=== PATIENT | female | born 1965 | race Caucasian/White ===

== ENCOUNTER → 2016-10-24 | Outpatient (CLI) | payer MEDICAID, MEDICARE | LOC: WI 15:03 | PROVIDERS: ATTEND Family Medicine | DX: Z12.31 Encounter for screening mammogram for malignant neoplasm of breast (principal) | CPT/HCPCS: 77067; G0202 ==

== ENCOUNTER → 2016-10-25 | Outpatient (CLI) | payer MEDICARE ==
[2016-10-25 13:23] LABS: APPEARANCE,URINE CLEAR; BILIRUBIN,URINE NEGATIVE (NEGATIVE); GLUCOSE, URINE NEGATIVE (NEGATIVE); KETONES,URINE NEGATIVE (NEGATIVE); LEUKOCYTE ESTERASE,URINE NEGATIVE (NEGATIVE); NITRITE,URINE NEGATIVE (NEGATIVE); PROTEIN,URINE >=500 mg/dL (NEGATIVE); UROBILINOGEN,URINE NEGATIVE mg/dL (<2.0)
[2016-10-25 13:26] LABS: HEMATOCRIT 43.5 % (36.0-47.0); HEMOGLOBIN 13.2 g/dL (12.0-15.5); HGB HCT DIFFERENCE -3.9; MEAN CORPUSCULAR HEMOGLOBIN 20.1 pg (27.0-33.4); MEAN CORPUSCULAR HGB CONC 30.2 g/dL (32.0-36.0); MEAN CORPUSCULAR VOLUME 67 fl (80-97); RED BLOOD COUNT 6.53 10^6/uL (3.72-5.28); RED CELL DISTRIBUTION WIDTH 21.1 % (11.5-14.0); WHITE BLOOD COUNT 10.5 10^3/uL (4.0-10.5)
[2016-10-25 13:44] LABS: ANION GAP 11 (5-19); BLOOD UREA NITROGEN 16 mg/dL (7-20); CALCIUM 9.9 mg/dL (8.4-10.2); CARBON DIOXIDE 31 mmol/L (22-30); CHLORIDE 100 mmol/L (98-107); GLUCOSE 159 mg/dL (75-110); POTASSIUM 4.4 mmol/L (3.6-5.0); SODIUM 142.4 mmol/L (137-145)
[2016-10-26 12:38] LABS: CREATININE URINE 53.6 mg/dL (Not Estab.)
== END ==
LOC: OD 12:51
PROVIDERS: ATTEND Internal Medicine Nephrology
DX: R80.9 Proteinuria, unspecified (principal); E11.9 Type 2 diabetes mellitus without complications; I10 Essential (primary) hypertension
CPT/HCPCS: 80048; 81001; 82570; 84156; 85027

== ENCOUNTER → 2016-11-06 | Outpatient (CLI) | payer MEDICAID, MEDICARE | LOC: WI 12:14 | PROVIDERS: ATTEND Family Medicine | DX: N63 Unspecified lump in breast (principal) | CPT/HCPCS: 76642; G0204 ==

== ENCOUNTER → 2017-04-22 | Outpatient (CLI) | payer MEDICARE ==
[2017-04-22 14:57] LABS: HEMATOCRIT 41.5 % (36.0-47.0); HEMOGLOBIN 13.8 g/dL (12.0-15.5); HGB HCT DIFFERENCE -0.1; MEAN CORPUSCULAR HEMOGLOBIN 24.7 pg (27.0-33.4); MEAN CORPUSCULAR HGB CONC 33.3 g/dL (32.0-36.0); MEAN CORPUSCULAR VOLUME 74 fl (80-97); RED BLOOD COUNT 5.61 10^6/uL (3.72-5.28); WHITE BLOOD COUNT 10.2 10^3/uL (4.0-10.5)
[2017-04-22 15:13] LABS: APPEARANCE,URINE SLIGHTLY-CLOUDY; BILIRUBIN,URINE NEGATIVE (NEGATIVE); GLUCOSE, URINE NEGATIVE (NEGATIVE); KETONES,URINE NEGATIVE (NEGATIVE); LEUKOCYTE ESTERASE,URINE NEGATIVE (NEGATIVE); NITRITE,URINE NEGATIVE (NEGATIVE); PROTEIN,URINE 100 mg/dL (NEGATIVE); URINE SPECIFIC GRAVITY 1.016; UROBILINOGEN,URINE NEGATIVE mg/dL (<2.0)
[2017-04-22 15:19] LABS: ANION GAP 12 (5-19); BLOOD UREA NITROGEN 18 mg/dL (7-20); CALCIUM 9.7 mg/dL (8.4-10.2); CARBON DIOXIDE 30 mmol/L (22-30); CHLORIDE 100 mmol/L (98-107); CREATININE RESULT 0.69 mg/dL (0.52-1.25); GLUCOSE 128 mg/dL (75-110); POTASSIUM 4.3 mmol/L (3.6-5.0); SODIUM 141.5 mmol/L (137-145)
[2017-04-22 15:41] LABS: URINE CREATININE 76.3 mg/dL (15-278); URINE PROTEIN 195.1 mg/dL (<12)
== END ==
LOC: OD 13:21
PROVIDERS: ATTEND Internal Medicine Nephrology
DX: R80.9 Proteinuria, unspecified (principal); I12.9 Hypertensive chronic kidney disease with stage 1 through stage 4 chronic kidney disease, or unspecified chronic kidney disease; E11.9 Type 2 diabetes mellitus without complications
CPT/HCPCS: 36415; 80048; 81001; 82570; 84156; 85027

== ENCOUNTER 2017-04-30 16:52 | Inpatient (IN) | payer MEDICARE, MEDICAID ==
[2017-04-30 17:20] LABS: VENOUS BLOOD BASE EXCESS 4.6 mmol/L; VENOUS BLOOD HCO3 31.2 mmol/L (20-32); VENOUS BLOOD PCO2 54.3 mmHg (35-63); VENOUS BLOOD PH 7.38 (7.30-7.42)
[2017-04-30 17:22] LABS: ABSOLUTE BASOPHILS # (AUTO) 0.1 10^3/uL (0.0-0.2); ABSOLUTE EOSINOPHILS # (AUTO) 0.1 10^3/uL (0.0-0.6); ABSOLUTE LYMPHOCYTES (AUTO) 2.3 10^3/uL (0.5-4.7); ABSOLUTE MONOCYTES (AUTO) 0.9 10^3/uL (0.1-1.4); ABSOLUTE NEUT (AUTO) 7.9 10^3/uL (1.7-8.2); BASOPHILS % (AUTO) 0.7 % (0-2); EOSINOPHILS % (AUTO) 0.7 % (0-6); HEMATOCRIT 41.2 % (36.0-47.0); HEMOGLOBIN 13.1 g/dL (12.0-15.5); HGB HCT DIFFERENCE -1.9; LYMPHOCYTES % (AUTO) 20.1 % (13-45); MEAN CORPUSCULAR HEMOGLOBIN 23.9 pg (27.0-33.4); MEAN CORPUSCULAR HGB CONC 31.8 g/dL (32.0-36.0); MEAN CORPUSCULAR VOLUME 75 fl (80-97); MONOCYTES % (AUTO) 8.2 % (3-13); RED BLOOD COUNT 5.49 10^6/uL (3.72-5.28); RED CELL DISTRIBUTION WIDTH 18.7 % (11.5-14.0); SEGMENTED NEUTROPHILS % (AUTO) 70.3 % (42-78); WHITE BLOOD COUNT 11.3 10^3/uL (4.0-10.5)
[2017-04-30] MEDS ORDERED: IPRATROPIUM/ALBUTEROL 0.5-2.5 MG/3 ML AMPUL NEB ONE (17:31)
--- NOTE | 2017-04-30 17:33 | ER Document Report ---
ED General - General Chief Complaint: Shortness Of Breath Stated Complaint: DIFFICULTY BREATHING Time Seen by Provider: 04/30/17 17:30 Mode of Arrival: Medic Information source: Patient Notes: This is a 52-year-old female with a history of B-cell lymphoma, pulmonary fibrosis, COPD (oxygen dependent), who is brought in by EMS because of severe shortness of breath. Patient states she has not been feeling that well lately and has had increasing shortness of breath. The patient was seen in the pulmonary clinic (Dr. Ruiz) and EMS was called and brought the patient to the ER. Her oxygen saturations were in the low 80s. TRAVEL OUTSIDE OF THE [place] IN LAST 30 DAYS: No - HPI Onset: Just prior to arrival Onset/Duration: Gradual Quality of pain: No pain Severity: None Pain Level: Denies Associated symptoms: Shortness of breath. denies: Chest pain, Fever Exacerbated by: Movement Relieved by: Remaining still Similar symptoms previously: Yes Recently seen / treated by doctor: Yes - Related Data Allergies/Adverse Reactions: corn [[place]] Allergy (Severe, Verified 06/20/16 21:35) COLITIS Shellfish * [Shellfish] Allergy (Severe, Verified 06/21/16 07:47) COLITIS peanut Adverse Reaction (Verified 06/21/16 07:47) SEEDS Allergy (Intermediate, Uncoded 12/20/14 14:34) COLITIS LETTUCE Adverse Reaction (Severe, Uncoded 12/20/14 14:34) COLITIS Past Medical History - General Information source: Patient - Social History Smoking Status: Never Smoker Cigarette use (# per day): No Chew tobacco use (# tins/day): No Frequency of alcohol use: None Drug Abuse: None Lives with: Family Family History: None, Reviewed & Not Pertinent Patient has suicidal ideation: No Patient has homicidal ideation: No - Past Medical History Cardiac Medical History: Reports: Hx Hypercholesterolemia, Hx Hypertension Denies: Hx Coronary Artery Disease, Hx Heart Attack Pulmonary Medical History: Reports: Hx Asthma, Hx Bronchitis, Hx COPD - Hospitalized 06/15 w/persistent pulmonary failure, Hx Pneumonia - ARDS, Hx Intubation - 2 in the past adamantly refuses additional intubations, Hx Respiratory Failure, Hx Sleep Apnea Denies: Hx Tuberculosis Neurological Medical History: Reports: Hx Cerebrovascular Accident - "Mild" 02/19 Endocrine Medical History: Reports: Hx Diabetes Mellitus Type 1, Hx Diabetes Mellitus Type 2 GI Medical History: Reports: Hx Gastroesophageal Reflux Disease, Hx Hiatal Hernia Musculoskeltal Medical History: Reports Hx Arthritis - Gout Past Surgical History: Reports: Hx Appendectomy, Hx Bowel Surgery, Hx Colostomy - ileostomy placed 05/15; subsequently closed., Hx Tubal Ligation. Denies: Hx Pacemaker - Immunizations Hx Diphtheria, Pertussis, Tetanus Vaccination: No Hx Pneumococcal Vaccination: 06/22/11 Review of Systems - Review of Systems Constitutional: denies: Chills, Fever EENT: No symptoms reported Cardiovascular: No symptoms reported Respiratory: See HPI Gastrointestinal: No symptoms reported Genitourinary: No symptoms reported Female Genitourinary: No symptoms reported Musculoskeletal: No symptoms reported Skin: No symptoms reported Hematologic/Lymphatic: No symptoms reported Neurological/Psychological: No symptoms reported Physical Exam - Vital signs Vitals: Pulse Ox 88 L 04/30/17 17:10 Notes: Physical exam: GENERAL: 52-year-old female, alert and oriented 3, significant respiratory distress HEAD: Atraumatic, normocephalic. EYES: Pupils equal round and reactive to light, extraocular movements intact, sclera anicteric, conjunctiva are normal. ENT: TMs normal, nares patent, oropharynx clear without exudates. Moist mucous membranes. NECK: Normal range of motion, supple without obvious mass or JVD. LUNGS: Wheezing bilaterally HEART: Regular rate and rhythm without murmurs, rubs or gallops. ABDOMEN: Soft, normoactive bowel sounds. No tenderness to palpation. No guarding, no rebound. No masses appreciated. EXTREMITIES: Normal range of motion, no pitting or edema. No clubbing or cyanosis. NEUROLOGICAL: Cranial nerves II through XII grossly intact. Normal speech, moving all extremities. PSYCH: Normal mood, normal affect. SKIN: Warm, Dry, normal turgor, no rashes or lesions noted. Course - Vital Signs Vital signs: Temp Pulse Resp BP Pulse Ox 24 H 146/76 H 97 04/30/17 20:42 04/30/17 20:00 04/30/17 20:42 - Laboratory Result Diagrams: 04/30/17 17:10 04/30/17 17:10 Laboratory results interpreted by me: 04/30/17 04/30/17 04/30/17 17:10 17:10 19:56 WBC 11.3 H RBC 5.49 H MCV 75 L MCH 23.9 L MCHC 31.8 L RDW 18.7 H Glucose 119 H Alkaline Phosphatase 139 H Total Protein 6.1 L Albumin 3.2 L Urine Protein >=500 H Ur Leukocyte Esterase TRACE H - Diagnostic Test Radiology reviewed: Image reviewed, Reports reviewed - EKG Interpretation by Me Rate: Tachycardia Rhythm: NSR - EKG shows sinus tachycardia with a ventricular rate of 102, no acute ST-T wave changes Discharge - Discharge Bad tableCondition: Stable Disposition: ADMITTED OBSERVATION Admitting Provider: Hospitalist Unit Admitted: Telemetry - Dr. Mock
[2017-04-30 17:40] LABS: ALANINE AMINOTRANSFERASE 33 U/L (9-52); ALBUMIN 3.2 g/dL (3.5-5.0); ALKALINE PHOSPHATASE 139 U/L (38-126); ANION GAP 8 (5-19); ASPARTATE AMINO TRANSFERASE 20 U/L (14-36); BILIRUBIN,DIRECT 0.4 mg/dL (0.0-0.4); BILIRUBIN,TOTAL 1.2 mg/dL (0.2-1.3); BLOOD UREA NITROGEN 14 mg/dL (7-20); CALCIUM 8.4 mg/dL (8.4-10.2); CARBON DIOXIDE 30 mmol/L (22-30); CHLORIDE 104 mmol/L (98-107); CREATININE RESULT 0.63 mg/dL (0.52-1.25); GLUCOSE 119 mg/dL (75-110); POTASSIUM 3.7 mmol/L (3.6-5.0); SODIUM 142.3 mmol/L (137-145); TOTAL PROTEIN 6.1 g/dL (6.3-8.2)
--- NOTE | 2017-04-30 18:02 | RADIOLOGY REPORT (SQ) ---
EXAM DESCRIPTION: CHEST SINGLE VIEW COMPLETED DATE/TIME: 04/30/2017 5:51 pm REASON FOR STUDY: shortness of breath COMPARISON: 06/20/2016 EXAM PARAMETERS: NUMBER OF VIEWS: One view. TECHNIQUE: Single frontal radiographic view of the chest acquired. RADIATION DOSE: NA LIMITATIONS: None. FINDINGS: LUNGS AND PLEURA: Stable degree of chronic interstitial lung disease. No consolidation, m asses or pneumothorax. No pleural effusion. MEDIASTINUM AND HILAR STRUCTURES: Stable in size and contour. HEART AND VASCULAR STRUCTURES: Heart stable in size. Normal vasculature. BONES: No acute findings. HARDWARE: None in the chest. OTHER: No other significant finding. IMPRESSION: NO ACUTE RADIOGRAPHIC FINDING IN THE CHEST. NO SIGNIFICANT CHANGE FROM PRIOR STUDY. TECHNICAL DOCUMENTATION: JOB ID: [id number]
[2017-04-30 20:19] LABS: APPEARANCE,URINE CLEAR; BILIRUBIN,URINE NEGATIVE (NEGATIVE); GLUCOSE, URINE NEGATIVE (NEGATIVE); KETONES,URINE NEGATIVE (NEGATIVE); LEUKOCYTE ESTERASE,URINE TRACE (NEGATIVE); NITRITE,URINE NEGATIVE (NEGATIVE); PROTEIN,URINE >=500 mg/dL (NEGATIVE); UROBILINOGEN,URINE NEGATIVE mg/dL (<2.0)
--- NOTE | 2017-04-30 21:15 | EKG REPORT ---
SEVERITY:- OTHERWISE NORMAL ECG - SINUS TACHYCARDIA ATRIAL PREMATURE COMPLEX : Confirmed by: Juli Ozuna MD 30-Apr-2017 21:14:47
[2017-04-30] MEDS ORDERED: ALBUTEROL SULFATE 0.083% NEB 2.5 MG/3 ML AMPUL NEB ONE (21:58)
[2017-04-30] MEDS ORDERED: HEPARIN SOD (PORCINE) 5,000 UNIT/ML 1 ML SYRINGE SUBCUT SCH (22:00)
[2017-04-30] MEDS ORDERED: HYDRALAZINE HCL INJ/PF 20 MG/1 ML SDV IV PRN (22:00)
[2017-04-30] MEDS ORDERED: LISINOPRIL 10 MG TABLET PO ONE (22:01)
[2017-04-30] MEDS ORDERED: DEXTROSE 40% GEL 15 GM TUBE PO PRN ×2 (22:01)
[2017-04-30] MEDS ORDERED: ACETAMINOPHEN 325 MG TABLET PO PRN (22:01)
[2017-04-30] MEDS ORDERED: GLUCAGON,HUMAN RECOMB 1 MG INJ IM PRN (22:01)
[2017-04-30] MEDS ORDERED: IPRATROPIUM/ALBUTEROL 0.5-2.5 MG/3 ML AMPUL NEB PRN (22:01)
[2017-04-30] MEDS ORDERED: DEXTROSE 50%-WATER 25 GM/50 ML DISP.SYRIN IV PRN ×2 (22:01)
[2017-04-30] MEDS ORDERED: GUAIFENESIN SYRP 200 MG/10 ML UDC PO PRN (22:01)
[2017-04-30] MEDS ORDERED: FAMOTIDINE 20 MG TABLET PO ONE (22:02)
[2017-04-30] MEDS ORDERED: AZITHROMYCIN INJ 500 MG VIAL IV PRN (22:49)
[2017-04-30] MEDS ORDERED: MONTELUKAST SODIUM 10 MG TABLET PO ONE (23:00)
[2017-04-30] MEDS ORDERED: AZITHROMYCIN 500 MG in DEXTROSE 5%-WATER 250 ML IV ONE (23:00)
[2017-04-30] MEDS ORDERED: HEPARIN SOD (PORCINE) 5,000 UNIT/ML 1 ML SYRINGE SUBCUT ONE (23:00)
[2017-04-30] MEDS ORDERED: ATORVASTATIN CALCIUM 10 MG TABLET PO ONE (23:00)
[2017-04-30] MEDS ORDERED: INSULIN DETEMIR 100 UNIT/ML 3 ML PEN SUBCUT ONE (23:00)
[2017-05-01] MEDS: INSULIN LISPRO 100 UNIT/ML 3 ML VIAL SUBCUT PRN ×3 (00:14→22:01)
[2017-05-01] MEDS: IPRATROPIUM/ALBUTEROL 0.5-2.5 MG/3 ML AMPUL NEB SCH ×4 (01:59→20:00)
--- NOTE | 2017-05-01 03:29 | PDOC H&P ---
History of Present Illness Admission Date/PCP: 04/30/17 22:01 Patient complains of: Shortness of breath History of Present Illness: JACOB TOLBERT is a 52 year old female with a past medical history of non- Hodgkin's lymphoma in remission, obstructive sleep apnea, COPD with oxygen dependence, chronic bronchitis, GERD, dyslipidemia, hypertension, type 2 diabetes and irritable bowel syndrome. She been her usual state of health until approximately 3 days ago noting exceptional shortness of breath without rhinorrhea, productive cough, fever, chills or uncontrolled GERD. 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 Ruiz as his office where she was cyanotic with oxygen saturations in the low 80s. EMS transferred referred her to the emergency room and had an unremarkable workup though required continuous albuterol and Atrovent nebulizer, 40% on BiPAP for oxygen saturations in the low 90s and improvement of symptoms. Patient admits noncompliance with medication secondary to exceptional social stressors she is also exposed to secondhand smoke on a daily basis. She is referred to the hospitalist for observation. Past Medical History Cardiac Medical History: Reports: Hyperlipidema, Hypertension Denies: Coronary Artery Disease, Myocardial Infarction Pulmonary Medical History: Reports: Asthma, Bronchitis, Chronic Obstructive Pulmonary Disease (COPD) - Hospitalized 06/15 w/persistent pulmonary failure, Intubation - 2 in the past adamantly refuses additional intubations, Pneumonia - ARDS, Respiratory Failure, Sleep Apnea Denies: Tuberculosis Endocrine Medical History: Reports: Diabetes Mellitus Type 1, Diabetes Mellitus Type 2 GI Medical History: Reports: Gastroesophageal Reflux Disease, Hiatal Hernia Musculoskeltal Medical History: Reports: Arthritis - Gout Psychiatric Medical History: Denies: Depression Hematology: Denies: Anemia Past Surgical History Past Surgical History: Reports: Appendectomy, Colostomy - ileostomy placed 05/15 ; subsequently closed., Tubal Ligation Denies: Pacemaker Social History Information Source: [facility] Records Lives with: Family Smoking Status: Former Smoker Frequency of Alcohol Use: None Hx Recreational Drug Use: No Drugs: None Hx Prescription Drug Abuse: No - Advance Directive Resuscitation Status: Full Code Family History Family History: COPD Parental Family History Reviewed: Yes Children Family History Reviewed: Yes Sibling(s) Family History Reviewed.: Yes Medication/Allergy Home Medications: Pravastatin Sodium [Pravachol] 40 mg PO QHS 06/04/11 Fluticasone/Salmeterol [Advair 500-50 Diskus 28 Dose] 1 inh IH DAILY 03/17/14 Montelukast Sodium [Singulair 10 mg Tablet] 10 mg PO QHS 03/17/14 Liraglutide [Victoza 2-Ambrosio] 1.2 mg SUBCUT DAILY 12/20/14 Lisinopril/Hydrochlorothiazide [Lisinopril-Hctz 10-12.5 mg Tab] 1 each PO DAILY 12/20/14 Dicyclomine HCl 10 mg PO QID 06/20/15 Insulin Detemir [Levemir Insulin 100 units/mL] 10 unit SUBCUT QHS 06/20/15 Metformin HCl [Glucophage] 1,000 mg PO BID 06/20/15 Albuterol Sulfate [Proair Respiclick] 2 pfu IH Q4H 06/21/16 Albuterol Sulfate [Ventolin Hfa] 1 - 2 puff IH Q6H PRN 06/21/16 Cholestyramine (with Sugar) [Cholestyramine Packet] 4 g PO DAILY 06/21/16 Fluticasone Propionate 1 spray IN DAILY 06/21/16 Omeprazole 20 mg PO BID 06/21/16 Tiotropium [place] [Spiriva Handihaler 5 Cap/Kit (18 Mcg/Cap)] 1 cap IH DAILY Albuterol Sulfate [Ventolin 0.083% Neb 2.5 mg/3 mL Ampul] 2.5 mg NEB RTQ2HP PRN #60 vial.neb 06/25/16 Levofloxacin [Levaquin 750 mg Tablet] 750 mg PO DAILY #10 tab 06/25/16 Nebulizer [Nebulizer Machine] 1 each MC ASDIR PRN #1 kit 06/25/16 Prednisone [Sterapred Ds] 1 pkg PO ASDIR PRN 12 Days tab.ds.pk 06/25/16 Allergies/Adverse Reactions: corn [Ambia] Allergy (Severe, Verified 06/20/16 21:35) COLITIS Shellfish * [Shellfish] Allergy (Severe, Verified 06/21/16 07:47) COLITIS peanut Adverse Reaction (Verified 06/21/16 07:47) SEEDS Allergy (Intermediate, Uncoded 12/20/14 14:34) COLITIS LETTUCE Adverse Reaction (Severe, Uncoded 12/20/14 14:34) COLITIS Review of Systems Constitutional: ABSENT: chills, fever(s), headache(s), weight gain, weight loss Eyes: ABSENT: visual disturbances Ears: ABSENT: hearing changes Cardiovascular: ABSENT: chest pain, dyspnea on exertion, edema, orthropnea, palpitations Respiratory: ABSENT: cough, hemoptysis Gastrointestinal: ABSENT: abdominal pain, constipation, diarrhea, hematemesis, hematochezia, nausea, vomiting Genitourinary: ABSENT: dysuria, hematuria Musculoskeletal: ABSENT: joint swelling Integumentary: ABSENT: rash, wounds Neurological: ABSENT: abnormal gait, abnormal speech, confusion, dizziness, focal weakness, syncope Psychiatric: ABSENT: anxiety, depression, homidical ideation, suicidal ideation Endocrine: ABSENT: cold intolerance, heat intolerance, polydipsia, polyuria Hematologic/Lymphatic: ABSENT: easy bleeding, easy bruising Physical Exam Vital Signs: Temp Pulse Resp BP Pulse Ox 97.6 F 91 22 H 139/60 H 92 05/01/17 01:51 05/01/17 02:01 05/01/17 02:01 05/01/17 01:51 05/01/17 02:30 Intake & Output 04/29/17 04/30/17 05/01/17 11:59 11:59 11:59 Weight 108.8 kg General appearance: PRESENT: cooperative, mild distress, obese Head exam: PRESENT: atraumatic, normocephalic Eye exam: PRESENT: conjunctiva pink, EOMI, PERRLA. ABSENT: scleral icterus Ear exam: PRESENT: normal external ear exam Mouth exam: PRESENT: moist, tongue midline Neck exam: ABSENT: carotid bruit, JVD, lymphadenopathy, thyromegaly Respiratory exam: PRESENT: accessory muscle use, prolonged expiratory phas, retraction, symmetrical, tachypnea. ABSENT: rales, rhonchi, wheezes Cardiovascular exam: PRESENT: RRR. ABSENT: diastolic murmur, rubs, systolic murmur Pulses: PRESENT: normal dorsalis pedis pul Vascular exam: PRESENT: normal capillary refill GI/Abdominal exam: PRESENT: normal bowel sounds, soft. ABSENT: distended, guarding, mass, organolmegaly, rebound, tenderness Rectal exam: PRESENT: deferred Extremities exam: PRESENT: full ROM. ABSENT: calf tenderness, clubbing, pedal edema Neurological exam: PRESENT: alert, awake, oriented to person, oriented to place , oriented to time, oriented to situation, CN II-XII grossly intact. ABSENT: motor sensory deficit Psychiatric exam: PRESENT: appropriate affect, normal mood. ABSENT: homicidal ideation, suicidal ideation Skin exam: PRESENT: dry, intact, warm. ABSENT: cyanosis, rash Results Impressions: Chest X-Ray 04/30/17 17:00 IMPRESSION: NO ACUTE RADIOGRAPHIC FINDING IN THE CHEST. NO SIGNIFICANT CHANGE FROM PRIOR STUDY. Assessment & Plan - Diagnosis (1) Acute on chronic respiratory failure Qualifiers: Respiratory failure complication: hypoxia Qualified Code(s): J96.21 - Acute and chronic respiratory failure with hypoxia Is this a current diagnosis for this admission?: Yes Plan: Unclear cause for exacerbation possibly uncontrolled GERD or noncompliance of medications. Observation on a monitored bed, empiric antibiotics, albuterol and Atrovent, Flonase and prednisone. Flutter valve, BiPAP ordered follow-up CBC (2) Diabetes mellitus Is this a current diagnosis for this admission?: Yes Plan: PPI twice daily (3) GERD (gastroesophageal reflux disease) Is this a current diagnosis for this admission?: Yes (4) Pulmonary fibrosis Is this a current diagnosis for this admission?: Yes Plan: Supportive care supplemental oxygen (5) Diabetes mellitus type 1 Qualifiers: Diabetes mellitus complication status: without complication Qualified Code( s): E10.9 - Type 1 diabetes mellitus without complications Is this a current diagnosis for this admission?: Yes Plan: Anticipate poor control continue outpatient regiment with sliding scale coverage - Time Time Spent: 50 to 70 Minutes
[2017-05-01] MEDS: FLUTICASONE NASAL SPRAY 50 MCG/SPRY 120 SPRAY/16 GM NASL SCH ×2 (05:04→11:21)
[2017-05-01 05:05] LABS: ABSOLUTE LYMPHOCYTES (AUTO) 0.6 10^3/uL (0.5-4.7); ABSOLUTE MONOCYTES (AUTO) 0.3 10^3/uL (0.1-1.4); ABSOLUTE NEUT (AUTO) 8.6 10^3/uL (1.7-8.2); BASOPHILS % (AUTO) 0.2 % (0-2); HEMATOCRIT 39.6 % (36.0-47.0); HGB HCT DIFFERENCE -0.6; LYMPHOCYTES % (AUTO) 6.2 % (13-45); MEAN CORPUSCULAR HEMOGLOBIN 24.5 pg (27.0-33.4); MEAN CORPUSCULAR HGB CONC 32.7 g/dL (32.0-36.0); MEAN CORPUSCULAR VOLUME 75 fl (80-97); MONOCYTES % (AUTO) 3.3 % (3-13); RED CELL DISTRIBUTION WIDTH 18.5 % (11.5-14.0); SEGMENTED NEUTROPHILS % (AUTO) 90.3 % (42-78); WHITE BLOOD COUNT 9.6 10^3/uL (4.0-10.5)
[2017-05-01] MEDS: HEPARIN SOD (PORCINE) 5,000 UNIT/ML 1 ML SYRINGE SUBCUT SCH ×3 (05:11→22:02)
[2017-05-01 05:23] LABS: ANION GAP 12 (5-19); BLOOD UREA NITROGEN 16 mg/dL (7-20); CALCIUM 9.4 mg/dL (8.4-10.2); CARBON DIOXIDE 26 mmol/L (22-30); CHLORIDE 101 mmol/L (98-107); CREATININE RESULT 0.58 mg/dL (0.52-1.25); GLUCOSE 256 mg/dL (75-110); POTASSIUM 4.1 mmol/L (3.6-5.0); SODIUM 139.1 mmol/L (137-145)
--- NOTE | 2017-05-01 09:54 | RADIOLOGY REPORT (SQ) ---
EXAM DESCRIPTION: CTA CHEST COMPLETED DATE/TIME: 05/01/2017 9:17 am REASON FOR STUDY: sob, resp failure J18.9 PNEUMONIA, UNSPECIFIED ORGANISM COMPARISON: [address] chest exams since 02/19/2011, most recently 06/20/2016 TECHNIQUE: CT scan of the chest performed using helical scanning technique with dynamic intravenous contrast injection. Images reviewed with lung, soft tissue and bone windows. Reconstructed coronal and sagittal MPR images reviewed. Additional 3 dimensional post-processing performed to develop Maximal Intensity Projection images (LA P). All images stored on PACS. All CT scanners at this facility use dose modulation, iterative reconstruction, and/or weight based d osing when appropriate to reduce radiation dose to as low as reasonably achievable (ALARA). [facility]: Dose Right [facility]: CareDose [facility]: Dose Right [facility]: Teradose 4D [facility]: [employer] CONTRAST TYPE AND DOSE: contrast/concentration: Isovue 370.00 mg/ml; Total Contrast Delivered: 76.0 ml; Total Saline Delivered: 110.0 ml Contrast bolus optimized for the pulmonary arteries. Not diagnostic for the aorta. RENAL FUNCTION: Creatinine 0.58 RADIATION DOSE: Up-to-date CT equipment and radiation dose reduction techniques were employed. CTDIv ol: 15.5 - 22.5 mGy. DLP: 582 mGy-cm. . LIMITATIONS: None. FINDINGS: LUNGS AND PLEURA: No pleural effusions or pneumothorax. Advanced pulmonary fibrosis is present with thickened interlobular septa. There is bandlike atelectasis at both bases. Bandlike atelectasis in the lingula. No dense consolidation worrisome for pneumonia. No definite pulmonary edema or pleural effusions. Benign well-circumscribed low-density 6 mm nodule along the right minor fissure unchanged from 011, of doubtful clinical significance. AORTA AND GREAT VESSELS: No aneurysm. Contrast bolus not optimized for the aorta. HEART: No pericardial effusion. No significant coronary artery calcifications. Calcified aortic valv e. PULMONARY ARTERIES: No emboli visualized in the main pulmonary arteries or the segmental branches. HILAR AND MEDIASTINAL STRUCTURES: There are stable borderline prominent lymph nodes in the pretrachea l, subcarinal, and prevascular spaces unchanged from 2010 HARDWARE: None in the chest. UPPER ABDOMEN: No significant findings. Limited exam. THYROID AND OTHER SOFT TISSUES: No masses. No adenopathy. BONES: No acute or significant finding. 3D MIPS: Confirm above findings. OTHER: No other significant finding. IMPRESSION: Bibasilar atelectasis. Lingular atelectasis. Pulmonary fibrosis No CT angio evidence of acute pulmonary emboli. No thoracic aortic dissection. COMMENT: Quality ID # [id number]: Final reports with documentation of one or more dose reduction techniques (e.g., Automated exposure control, adjustment of the mA and/or kV according to patient size, use of iterative reconstruction technique) TECHNICAL DOCUMENTATION: JOB ID: [id number] [employer]- All Rights Reserved
[2017-05-01] MEDS ORDERED: (PENDING PHARMACY ID) (Lisinopril/Hydrochlorothiazide [Lisinopril-Hctz 10-12.5 Mg Tab] 1 E PO SCH (10:00)
[2017-05-01] MEDS: LEVOFLOXACIN 750 MG/D5W RTU 750 MG/150 ML RTUPB IV SCH (11:20)
[2017-05-01] MEDS: GUAIFENESIN 600 MG TABLET.SA PO SCH ×2 (11:20→22:03)
[2017-05-01] MEDS: LISINOPRIL 10 MG TABLET PO SCH (11:21)
[2017-05-01] MEDS: HYDROCHLOROTHIAZIDE 12.5 MG CAPSULE PO SCH (11:21)
[2017-05-01] MEDS ORDERED: CHOLESTYRAMINE 4 GM PO SCH (11:45)
[2017-05-01] MEDS ORDERED: (PENDING PHARMACY ID) (Liraglutide [Victoza 2-Pak] 1.2 MG) SUBCUT SCH ×2 (11:45→12:00)
[2017-05-01] MEDS ORDERED: [UNRECOGNIZED DRUG - OTHER] PO SCH (11:45)
--- NOTE | 2017-05-01 12:32 | PDOC PROGRESS REPORT ---
Subjective Progress Note for:: 05/01/17 Subjective:: The patient is an unfortunate 52-year-old female who follows with Dr. Ruiz as an outpatient. She was brought to the hospital by ambulance from his office she was found to be quite hypoxic. The patient has known severe pulmonary fibrosis and COPD. She is oxygen dependent at baseline on 6 L of oxygen. In the emergency room the patient was placed on BiPAP. This morning when I see her she is doing somewhat better. Chest x-ray did not reveal any evidence of pneumonia. She has had a CT angiography which revealed no evidence of pulmonary embolus. No evidence of pneumonia. She does have some bandlike atelectasis noted in the lower bases and severe pulmonary fibrosis noted. Today when I saw her she states that she feels almost back to her baseline. She states she gets quite short of breath and her oxygen levels drop when she walks but this is been going on for quite some time. She states that she is quite tired and she was up all night. She has had no fever or chills. She states her chest feels tight but she really does not have much in the way of cough. She is not bringing up any sputum. She has had no nausea, vomiting or diarrhea. No abdominal pain. No dysuria, frequency or hematuria. Physical Exam Vital Signs: Temp Pulse Resp BP Pulse Ox 97.8 F 75 16 125/59 L 92 05/01/17 11:49 05/01/17 11:49 05/01/17 11:49 05/01/17 11:49 05/01/17 11:49 Intake & Output 04/30/17 05/01/17 05/02/17 06:59 06:59 06:59 Intake Total 220 Output Total 0 Balance 220 Weight 108.8 kg General appearance: PRESENT: no acute distress, well-developed, well-nourished, other - She is receiving oxygen via nasal cannula at 5 L Head exam: PRESENT: atraumatic, normocephalic Mouth exam: PRESENT: moist, tongue midline Respiratory exam: PRESENT: decreased breath sounds, other - She is not wheezing. Her lungs sound clear but she has significantly diminished breath sounds.. ABSENT: accessory muscle use, chest wall tenderness Cardiovascular exam: PRESENT: RRR. ABSENT: diastolic murmur, rubs, systolic murmur GI/Abdominal exam: PRESENT: normal bowel sounds, soft. ABSENT: distended, guarding, mass, organolmegaly, rebound, tenderness Rectal exam: PRESENT: deferred Extremities exam: PRESENT: full ROM. ABSENT: calf tenderness, clubbing, pedal edema Neurological exam: PRESENT: alert, awake, oriented to person, oriented to place , oriented to time, oriented to situation, CN II-XII grossly intact. ABSENT: motor sensory deficit Psychiatric exam: PRESENT: appropriate affect, normal mood. ABSENT: homicidal ideation, suicidal ideation Skin exam: PRESENT: dry, intact, warm. ABSENT: cyanosis, rash Results Laboratory Results: 05/01/17 04:22 05/01/17 04:22 05/01/17 05/01/17 04:22 04:22 WBC 9.6 RBC 5.30 H Hgb 13.0 Hct 39.6 MCV 75 L MCH 24.5 L MCHC 32.7 RDW 18.5 H Plt Count 184 Seg Neutrophils % 90.3 H Lymphocytes % 6.2 L Monocytes % 3.3 Eosinophils % 0.0 Basophils % 0.2 Absolute Neutrophils 8.6 H Absolute Lymphocytes 0.6 Absolute Monocytes 0.3 Absolute Eosinophils 0.0 Absolute Basophils 0.0 Sodium 139.1 Potassium 4.1 Chloride 101 Carbon Dioxide 26 Anion Gap 12 BUN 16 Creatinine 0.58 Est GFR ( Amer) > 60 Est GFR (Non-Af Amer) > 60 Glucose 256 H Calcium 9.4 Impressions: Chest X-Ray 04/30/17 17:00 IMPRESSION: NO ACUTE RADIOGRAPHIC FINDING IN THE CHEST. NO SIGNIFICANT CHANGE FROM PRIOR STUDY. Chest/Abdomen CTA 05/01/17 00:00 IMPRESSION: Bibasilar atelectasis. Lingular atelectasis. Pulmonary fibrosis No CT angio evidence of acute pulmonary emboli. No thoracic aortic dissection. Assessment & Plan - Diagnosis (1) Acute on chronic respiratory failure with hypoxia and hypercapnia Plan: Resolved at this point. She is back to her baseline oxygen requirements. Respiratory failure is due to worsening pulmonary fibrosis. I cannot rule out an early bronchitis. There is no evidence of pneumonia on chest x-ray or CT scan. She will continue aggressive breathing treatments and therapy as outlined below. (2) Pulmonary fibrosis Plan: The patient has severe pulmonary fibrosis at baseline. We will put her on a quick steroid taper to see if this will help with inflammation. She seems to be about back to her baseline at this point. Hopefully we can get her an appointment with Dr. Ruiz for early next week when she is discharged hopefully tomorrow. (3) Bronchitis Plan: The patient does state she has not been feeling well for a couple of days and has had increased cough at home. She could be developing an early bronchitis. She is receiving IV Levaquin. This is the first full day of treatment. (4) Diabetes mellitus Plan: Continue Levemir with sliding scale insulin. (5) GERD (gastroesophageal reflux disease) Is this a current diagnosis for this admission?: Yes Plan: Continue PPI (6) History of lymphoma Plan: No evidence of recurrence at this point. (7) HANNAH (obstructive sleep apnea) Plan: She has BiPAP available as needed - Time Time Spent with patient: 25-34 minutes - Inpatient Certification Medical Necessity: Other - Inpatient hospitalization remains necessary. The patient is improving but I believe she should be monitored in the hospital for 1 more night. She has significant respiratory issues and is at high risk of decompensation.
[2017-05-01] MEDS ORDERED: CHOLESTYRAMINE/ASPARTAME 4 GM PACKET PO ONE (13:00)
[2017-05-01] MEDS ORDERED: FLUTICASONE/SALMETEROL DISKUS 500-50 MCG/DOSE IH ONE (13:00)
[2017-05-01] MEDS ORDERED: TIOTROPIUM BROMIDE DPI 5 CAP/KIT (18 MCG/CAP) IH ONE (13:00)
[2017-05-01] MEDS ORDERED: PREDNISONE 20 MG TABLET PO ONE (13:00)
[2017-05-01] MEDS ORDERED: FLUTICASONE NASAL SPRAY 50 MCG/SPRY 120 SPRAY/16 GM NASL ONE (13:00)
[2017-05-01] MEDS: METFORMIN HCL 500 MG TABLET PO SCH (18:20)
[2017-05-01] MEDS: INSULIN DETEMIR 100 UNIT/ML 3 ML PEN SUBCUT SCH (22:00)
[2017-05-01] MEDS ORDERED: AZITHROMYCIN 500 MG in DEXTROSE 5%-WATER 250 ML IV SCH (22:00)
[2017-05-01] MEDS: FLUTICASONE/SALMETEROL DISKUS 500-50 MCG/DOSE IH SCH (22:01)
[2017-05-01] MEDS: MONTELUKAST SODIUM 10 MG TABLET PO SCH (22:03)
[2017-05-01] MEDS: LANSOPRAZOLE 15 MG TAB.RAP.DR PO SCH (22:03)
[2017-05-01] MEDS: ATORVASTATIN CALCIUM 10 MG TABLET PO SCH (22:03)
[2017-05-02] MEDS: IPRATROPIUM/ALBUTEROL 0.5-2.5 MG/3 ML AMPUL NEB SCH ×4 (01:43→19:59)
[2017-05-02 04:56] LABS: ABSOLUTE MONOCYTES (AUTO) 0.7 10^3/uL (0.1-1.4); ABSOLUTE NEUT (AUTO) 8.5 10^3/uL (1.7-8.2); BASOPHILS % (AUTO) 0.5 % (0-2); HEMATOCRIT 39.4 % (36.0-47.0); HEMOGLOBIN 12.8 g/dL (12.0-15.5); LYMPHOCYTES % (AUTO) 10.1 % (13-45); MEAN CORPUSCULAR HEMOGLOBIN 24.2 pg (27.0-33.4); MEAN CORPUSCULAR HGB CONC 32.5 g/dL (32.0-36.0); MEAN CORPUSCULAR VOLUME 74 fl (80-97); MONOCYTES % (AUTO) 6.6 % (3-13); RED BLOOD COUNT 5.29 10^6/uL (3.72-5.28); RED CELL DISTRIBUTION WIDTH 18.3 % (11.5-14.0); SEGMENTED NEUTROPHILS % (AUTO) 82.8 % (42-78); WHITE BLOOD COUNT 10.3 10^3/uL (4.0-10.5)
[2017-05-02 05:14] LABS: ANION GAP 10 (5-19); BLOOD UREA NITROGEN 18 mg/dL (7-20); CALCIUM 9.7 mg/dL (8.4-10.2); CARBON DIOXIDE 28 mmol/L (22-30); CHLORIDE 101 mmol/L (98-107); GLUCOSE 294 mg/dL (75-110); MAGNESIUM 1.5 mg/dL (1.6-2.3); POTASSIUM 4.9 mmol/L (3.6-5.0); SODIUM 138.7 mmol/L (137-145)
[2017-05-02] MEDS: HEPARIN SOD (PORCINE) 5,000 UNIT/ML 1 ML SYRINGE SUBCUT SCH ×3 (06:14→21:18)
[2017-05-02] MEDS ORDERED: MAGNESIUM SULFATE/D5W 1 GM/100 ML RTUPB IV SCH (08:30)
[2017-05-02] MEDS: INSULIN LISPRO 100 UNIT/ML 3 ML VIAL SUBCUT PRN ×2 (08:34→21:18)
[2017-05-02] MEDS: METFORMIN HCL 500 MG TABLET PO SCH ×2 (08:34→17:46)
[2017-05-02] MEDS: LEVOFLOXACIN 750 MG/D5W RTU 750 MG/150 ML RTUPB IV SCH (08:34)
--- NOTE | 2017-05-02 09:55 | Physician Advisory Note ---
Physician Advisor ProgressNote .: Pursuant to the plan for [facility], I have reviewed the medical record for this patient. Physician Advisor Statement: Beautiful documentation of pt's s/s of acute resp failure in H&P. Please consider documentin. "obesity w/BMI 41" 2. Was the O2 sat in 80s at office while on usual 6L O2, or on RA? Thx! CK
[2017-05-02] MEDS: FLUTICASONE/SALMETEROL DISKUS 500-50 MCG/DOSE IH SCH ×2 (10:01→21:22)
[2017-05-02] MEDS: LISINOPRIL 10 MG TABLET PO SCH (10:01)
[2017-05-02] MEDS: GUAIFENESIN 600 MG TABLET.SA PO SCH ×2 (10:01→21:22)
[2017-05-02] MEDS: LANSOPRAZOLE 15 MG TAB.RAP.DR PO SCH ×2 (10:01→21:22)
[2017-05-02] MEDS: HYDROCHLOROTHIAZIDE 12.5 MG CAPSULE PO SCH (10:01)
[2017-05-02] MEDS: CHOLESTYRAMINE/ASPARTAME 4 GM PACKET PO SCH (10:01)
[2017-05-02] MEDS: TIOTROPIUM BROMIDE DPI 5 CAP/KIT (18 MCG/CAP) IH SCH (10:02)
[2017-05-02] MEDS: FLUTICASONE NASAL SPRAY 50 MCG/SPRY 120 SPRAY/16 GM NASL SCH (10:02)
--- NOTE | 2017-05-02 11:19 | PDOC DISCHARGE SUMMARY ---
General - Admit/Disc Date/PCP Admission Date/Primary Care Provider: 05/01/17 13:23 Primary CARE provider: Dr. Cardona Trans Router: Dr. Ruiz Discharge Date: 05/02/17 - Discharge Diagnosis (1) Acute on chronic respiratory failure with hypoxia and hypercapnia Summary: Secondary to pulmonary fibrosis and probable acute bronchitis. The patient initially was on BiPAP but was weaned back to her normal home oxygen prior to discharge. (2) Pulmonary fibrosis Summary: The patient had a CT scan of the chest which revealed no evidence of pulmonary embolism. She had no evidence of underlying pneumonia. She did have extensive pulmonary fibrosis noted. (3) Bronchitis Summary: She will complete a course of p.o. Levaquin as well as a quick prednisone taper (4) Diabetes mellitus Summary: Stable. She will resume her home regimen (5) GERD (gastroesophageal reflux disease) Is this a current diagnosis for this admission?: Yes Summary: Continue home regimen (6) History of lymphoma Summary: No evidence of recurrence (7) HANNAH (obstructive sleep apnea) Summary: Continue CPAP at home - Additional Information Resuscitation Status: Full Code Discharge Diet: Diabetic Discharge Activity: Activity As Tolerated, Balance Activity w/Rest, Slowly Increase Activity Home Medications: Pravastatin Sodium [Pravachol] 40 mg PO QHS 06/04/11 Fluticasone/Salmeterol [Advair 500-50 Diskus 28 Dose] 1 inh IH DAILY 03/17/14 Montelukast Sodium [Singulair 10 mg Tablet] 10 mg PO QHS 03/17/14 Liraglutide [Victoza 2-Ambrosio] 1.2 mg SUBCUT DAILY 12/20/14 Lisinopril/Hydrochlorothiazide [Lisinopril-Hctz 10-12.5 mg Tab] 1 each PO DAILY 12/20/14 Insulin Detemir [Levemir Insulin 100 units/mL] 30 unit SUBCUT QHS 06/20/15 Metformin HCl [Glucophage] 1,000 mg PO BID 06/20/15 Albuterol Sulfate [Proair Respiclick] 2 puff IH Q4HP PRN 06/21/16 Cholestyramine (with Sugar) [Cholestyramine Packet] 4 g PO DAILY 06/21/16 Fluticasone Propionate 1 spray NASL DAILY 06/21/16 Omeprazole 20 mg PO BID 11/17/16 Tiotropium [place] [Spiriva Handihaler 5 Cap/Kit (18 Mcg/Cap)] 1 cap IH DAILY Fluticasone/Salmeterol [Advair 500-50 Diskus 14 Dose/Diskus] 1 inh IH Q12 inhaler 05/02/17 Guaifenesin [Mucinex Sr 600 mg Tablet.sa] 1,200 mg PO Q12 tablet.sa 05/02/17 Guaifenesin [Robitussin Syrup 200 mg/10 ml Ud Cup] 200 mg PO Q4HP PRN udc 05/02 Levofloxacin [Levaquin 750 mg Tablet] 750 mg PO DAILY #5 tablet 05/02/17 Prednisone 10 mg PO DAILY #21 tablet 05/02/17 History of Present Illness History of Present Illness: JACOB TOLBERT is a 52 year old female with increased shortness of breath and hypoxia Hospital Course Hospital Course: The patient is a very pleasant but unfortunate 52-year-old female who follows with Dr. Ruiz as an outpatient. Her past medical history is significant for lymphoma which is in remission. She has known severe pulmonary fibrosis and COPD. She is oxygen dependent at baseline on 6 L of oxygen. She was brought to the emergency room by ambulance from Dr. Ruiz's office where she was found to be quite hypoxic. In the emergency room the patient was placed on BiPAP. Chest x-ray did not reveal any evidence of pneumonia. She had a CT angiography of the chest which revealed no evidence of pulmonary embolus but she was noted to have bandlike atelectasis and severe pulmonary fibrosis. There was no evidence of any underlying infiltrates. The patient was started on IV Levaquin as well as prednisone. She was weaned off BiPAP quite quickly and is back to her baseline oxygen saturations. At this point she feels like she is totally back to her normal self. She actually is requiring less oxygen at this time than she was when she was at home. She is going to follow-up with Dr. Ruiz next week. She will complete a course of p.o. Levaquin as well as p.o. prednisone. At this point maximum hospital benefits been reached. The patient will be discharged home today in stable condition. Physical Exam Vital Signs: Temp Pulse Resp BP Pulse Ox 97.4 F 75 17 145/86 H 98 05/02/17 08:05 05/02/17 08:05 05/02/17 08:05 05/02/17 08:05 05/02/17 08:05 Intake & Output 05/01/17 05/02/17 05/03/17 06:59 06:59 06:59 Intake Total 560 Balance 560 Weight 108.3 kg General appearance: PRESENT: no acute distress, morbidly obese, well-developed, well-nourished, other - She is receiving oxygen via nasal cannula Head exam: PRESENT: atraumatic, normocephalic Mouth exam: PRESENT: moist, tongue midline Respiratory exam: PRESENT: other - She is significantly diminished throughout all lung aguiar. ABSENT: accessory muscle use, chest wall tenderness Cardiovascular exam: PRESENT: RRR. ABSENT: diastolic murmur, rubs, systolic murmur GI/Abdominal exam: PRESENT: normal bowel sounds, soft. ABSENT: distended, guarding, mass, organolmegaly, rebound, tenderness Rectal exam: PRESENT: deferred Extremities exam: PRESENT: full ROM. ABSENT: calf tenderness, clubbing, pedal edema Neurological exam: PRESENT: alert, awake, oriented to person, oriented to place , oriented to time, oriented to situation, CN II-XII grossly intact. ABSENT: motor sensory deficit Psychiatric exam: PRESENT: appropriate affect, normal mood. ABSENT: homicidal ideation, suicidal ideation Skin exam: PRESENT: dry, intact, warm. ABSENT: cyanosis, rash Results Laboratory Results: 05/02/17 04:14 05/02/17 04:14 05/02/17 05/02/17 04:14 04:14 WBC 10.3 RBC 5.29 H Hgb 12.8 Hct 39.4 MCV 74 L MCH 24.2 L MCHC 32.5 RDW 18.3 H Plt Count 163 Seg Neutrophils % 82.8 H Lymphocytes % 10.1 L Monocytes % 6.6 Eosinophils % 0.0 Basophils % 0.5 Absolute Neutrophils 8.5 H Absolute Lymphocytes 1.0 Absolute Monocytes 0.7 Absolute Eosinophils 0.0 Absolute Basophils 0.0 Sodium 138.7 Potassium 4.9 Chloride 101 Carbon Dioxide 28 Anion Gap 10 BUN 18 Creatinine 0.60 Est GFR ( Amer) > 60 Est GFR (Non-Af Amer) > 60 Glucose 294 H Calcium 9.7 Magnesium 1.5 L Impressions: Chest X-Ray 04/30/17 17:00 IMPRESSION: NO ACUTE RADIOGRAPHIC FINDING IN THE CHEST. NO SIGNIFICANT CHANGE FROM PRIOR STUDY. Chest/Abdomen CTA 05/01/17 00:00 IMPRESSION: Bibasilar atelectasis. Lingular atelectasis. Pulmonary fibrosis No CT angio evidence of acute pulmonary emboli. No thoracic aortic dissection. 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 She is in stable condition on the day of discharge. Time Spent: Greater than 30 Minutes
[2017-05-02] MEDS ORDERED: METHYLPREDNISOLONE INJ 40 MG/1 ML SDV IV ONE (15:30)
[2017-05-02] MEDS: INSULIN DETEMIR 100 UNIT/ML 3 ML PEN SUBCUT SCH (21:18)
[2017-05-02] MEDS: METHYLPREDNISOLONE INJ 40 MG/1 ML SDV IV SCH (21:23)
[2017-05-02] MEDS: MONTELUKAST SODIUM 10 MG TABLET PO SCH (21:23)
[2017-05-02] MEDS: ATORVASTATIN CALCIUM 10 MG TABLET PO SCH (21:23)
[2017-05-03] MEDS: IPRATROPIUM/ALBUTEROL 0.5-2.5 MG/3 ML AMPUL NEB SCH ×4 (02:05→20:48)
[2017-05-03] MEDS: METHYLPREDNISOLONE INJ 40 MG/1 ML SDV IV SCH (05:58)
[2017-05-03] MEDS: HEPARIN SOD (PORCINE) 5,000 UNIT/ML 1 ML SYRINGE SUBCUT SCH ×3 (05:58→21:33)
[2017-05-03] MEDS: INSULIN LISPRO 100 UNIT/ML 3 ML VIAL SUBCUT PRN ×4 (10:14→21:47)
[2017-05-03] MEDS: CHOLESTYRAMINE/ASPARTAME 4 GM PACKET PO SCH (10:14)
[2017-05-03] MEDS: HYDROCHLOROTHIAZIDE 12.5 MG CAPSULE PO SCH (10:15)
[2017-05-03] MEDS: LANSOPRAZOLE 15 MG TAB.RAP.DR PO SCH ×2 (10:15→21:33)
[2017-05-03] MEDS: METFORMIN HCL 500 MG TABLET PO SCH ×2 (10:16→16:17)
[2017-05-03] MEDS: LISINOPRIL 10 MG TABLET PO SCH (10:16)
[2017-05-03] MEDS: GUAIFENESIN 600 MG TABLET.SA PO SCH ×2 (10:16→21:33)
[2017-05-03] MEDS: LEVOFLOXACIN 750 MG/D5W RTU 750 MG/150 ML RTUPB IV SCH (10:17)
[2017-05-03] MEDS: FLUTICASONE NASAL SPRAY 50 MCG/SPRY 120 SPRAY/16 GM NASL SCH (10:18)
[2017-05-03] MEDS: TIOTROPIUM BROMIDE DPI 5 CAP/KIT (18 MCG/CAP) IH SCH (10:18)
[2017-05-03] MEDS: FLUTICASONE/SALMETEROL DISKUS 500-50 MCG/DOSE IH SCH ×2 (10:19→21:33)
--- NOTE | 2017-05-03 12:44 | PDOC PROGRESS REPORT ---
Subjective Progress Note for:: 05/03/17 Subjective:: The patient is feeling much better today. She was started on IV Solu-Medrol last night. I spoke to Dr. Ruiz today who would like to wean her off of the Solu-Medrol and onto p.o. prednisone. He states at discharge we are to do a quick taper down to 20 mg a day and he will likely perform a very long taper over the next several months going forward. I explained all of this to the patient and all of her questions were answered. The tentative plan is for discharge tomorrow morning. I have prepared her discharge and sent all of her medications to the pharmacy. Physical Exam Vital Signs: Temp Pulse Resp BP Pulse Ox 97.6 F 90 18 125/62 94 05/03/17 04:27 05/03/17 08:27 05/03/17 08:27 05/03/17 04:27 05/03/17 08:27 Intake & Output 05/02/17 05/03/17 05/04/17 06:59 06:59 06:59 Intake Total 560 1230 Balance 560 1230 Weight 108.3 kg 106.6 kg General appearance: PRESENT: no acute distress, morbidly obese, other - She is receiving oxygen via nasal cannula Head exam: PRESENT: atraumatic, normocephalic Mouth exam: PRESENT: moist, tongue midline Respiratory exam: PRESENT: clear to auscultation dee, decreased breath sounds. ABSENT: rales, rhonchi, wheezes Cardiovascular exam: PRESENT: RRR. ABSENT: diastolic murmur, rubs, systolic murmur GI/Abdominal exam: PRESENT: normal bowel sounds, soft, other - Her abdomen is obese. ABSENT: distended, guarding, mass, organolmegaly, rebound, tenderness Rectal exam: PRESENT: deferred Extremities exam: PRESENT: full ROM. ABSENT: calf tenderness, clubbing, pedal edema Neurological exam: PRESENT: alert, awake, oriented to person, oriented to place , oriented to time, oriented to situation, CN II-XII grossly intact. ABSENT: motor sensory deficit Skin exam: PRESENT: dry, intact, warm. ABSENT: cyanosis, rash Results Laboratory Results: 05/02/17 04:14 05/02/17 04:14 Impressions: Chest X-Ray 04/30/17 17:00 IMPRESSION: NO ACUTE RADIOGRAPHIC FINDING IN THE CHEST. NO SIGNIFICANT CHANGE FROM PRIOR STUDY. Chest/Abdomen CTA 05/01/17 00:00 IMPRESSION: Bibasilar atelectasis. Lingular atelectasis. Pulmonary fibrosis No CT angio evidence of acute pulmonary emboli. No thoracic aortic dissection. Assessment & Plan - Diagnosis (1) Acute on chronic respiratory failure with hypoxia and hypercapnia Plan: Resolved at this point. She is back to her baseline oxygen requirements. Respiratory failure is due to worsening pulmonary fibrosis. I cannot rule out an early bronchitis. There is no evidence of pneumonia on chest x-ray or CT scan. She will continue aggressive breathing treatments and therapy as outlined below. (2) Pulmonary fibrosis Plan: The patient has severe pulmonary fibrosis at baseline. I spoke to Dr. Ruiz we will change the patient over to p.o. prednisone today. Her steroid taper at discharge has been written and sent to her pharmacy. She seems to be about back to her baseline at this point. Hopefully we can get her an appointment with Dr. Ruiz for early next week when she is discharged hopefully tomorrow. (3) Bronchitis Plan: The patient does state she has not been feeling well for a couple of days and has had increased cough at home. She could be developing an early bronchitis. She will continue p.o. Levaquin. This is day #3 of treatment. She is receiving IV Levaquin. This is the first full day of treatment. (4) Diabetes mellitus Plan: Continue Levemir with sliding scale insulin. (5) GERD (gastroesophageal reflux disease) Is this a current diagnosis for this admission?: Yes Plan: Continue PPI (6) History of lymphoma Plan: No evidence of recurrence at this point. (7) HANNAH (obstructive sleep apnea) Plan: She has BiPAP available as needed (8) Morbid obesity Plan: Certainly she would benefit from weight loss - Time Time Spent with patient: 25-34 minutes - Inpatient Certification Medical Necessity: Other - Inpatient hospitalization remains necessary. We need to arrange wean her off of parenteral steroids and on to p.o. prednisone. If she remains stable overnight she will be discharged first thing in the morning.
--- NOTE | 2017-05-03 12:55 | PDOC DISCHARGE SUMMARY ---
General - Admit/Disc Date/PCP Admission Date/Primary Care Provider: 05/01/17 13:23 Primary CARE provider: Dr. Cardona Shuttle Threader: Dr. Ruiz Discharge Date: 05/04/17 - Discharge Diagnosis (1) Acute on chronic respiratory failure with hypoxia and hypercapnia Summary: The patient is back to her baseline oxygen requirements. Her acute respiratory failure was due to worsening pulmonary fibrosis, possible acute bronchitis. (2) Pulmonary fibrosis Summary: 30 now I do not think now she is not on my per Dr. Ruiz she will complete a quick steroid taper down to 20 mg daily of prednisone.She will continue a long taper directed by Dr. Ruiz as an outpatient. (3) Bronchitis Summary: She will complete a course of p.o. Levaquin (4) Diabetes mellitus Summary: Continue home regimen (5) GERD (gastroesophageal reflux disease) Is this a current diagnosis for this admission?: Yes Summary: Continue home regimen (6) History of lymphoma Summary: Fortunately there is no evidence of recurrence (7) HANNAH (obstructive sleep apnea) Summary: Continue CPAP (8) Morbid obesity Summary: Certainly it would be in her best interest to lose weight - Additional Information Resuscitation Status: Full Code Discharge Diet: Diabetic Discharge Activity: Activity As Tolerated, Balance Activity w/Rest, Slowly Increase Activity Home Medications: Pravastatin Sodium [Pravachol] 40 mg PO QHS 06/04/11 Fluticasone/Salmeterol [Advair 500-50 Diskus 28 Dose] 1 inh IH DAILY 03/17/14 Montelukast Sodium [Singulair 10 mg Tablet] 10 mg PO QHS 03/17/14 Liraglutide [Victoza 2-Ambrosio] 1.2 mg SUBCUT DAILY 12/20/14 Lisinopril/Hydrochlorothiazide [Lisinopril-Hctz 10-12.5 mg Tab] 1 each PO DAILY 12/20/14 Insulin Detemir [Levemir Insulin 100 units/mL] 30 unit SUBCUT QHS 06/20/15 Metformin HCl [Glucophage] 1,000 mg PO BID 06/20/15 Albuterol Sulfate [Proair Respiclick] 2 puff IH Q4HP PRN 06/21/16 Cholestyramine (with Sugar) [Cholestyramine Packet] 4 g PO DAILY 06/21/16 Fluticasone Propionate 1 spray NASL DAILY 06/21/16 Omeprazole 20 mg PO BID 06/21/16 Tiotropium [place] [Spiriva Handihaler 5 Cap/Kit (18 Mcg/Cap)] 1 cap IH DAILY Fluticasone/Salmeterol [Advair 500-50 Diskus 14 Dose/Diskus] 1 inh IH Q12 inhaler 05/02/17 Guaifenesin [Mucinex Sr 600 mg Tablet.sa] 1,200 mg PO Q12 tablet.sa 05/02/17 Guaifenesin [Robitussin Syrup 200 mg/10 ml Ud Cup] 200 mg PO Q4HP PRN udc 05/02 Levofloxacin [Levaquin 750 mg Tablet] 750 mg PO DAILY #5 tablet 05/02/17 Prednisone See Protocol PO DAILY #40 tablet 05/03/17 History of Present Illness History of Present Illness: JACOB TOLBERT is a 52 year old female with increased shortness of breath and hypoxia Hospital Course Hospital Course: The patient is a very pleasant but unfortunate 52-year-old female who follows with Dr. Ruiz as an outpatient. Her past medical history is significant for lymphoma which is in remission. She has known severe pulmonary fibrosis and COPD. She is oxygen dependent at baseline on 6 L of oxygen. She was brought to the emergency room by ambulance from Dr. Ruiz's office where she was found to be quite hypoxic. In the emergency room the patient was placed on BiPAP. Chest x-ray did not reveal any evidence of pneumonia. She had a CT angiography of the chest which revealed no evidence of pulmonary embolism. She was noted to have bandlike atelectasis and severe pulmonary fibrosis. There was no evidence of any underlying infiltrates. The patient was started on IV Levaquin as well as prednisone. She was weaned off BiPAP quite quickly and on 05/02/2017 was back to her baseline and actually was discharged home. However prior to discharge the patient's oxygen saturations dropped into the low 80s in spite of oxygen therapy and her discharge was canceled. She was placed back on IV Solu-Medrol. I have spoken to Dr. Ruiz prior to discharge. She will be transitioned off of IV Solu-Medrol and will complete a quick prednisone taper down to 20 mg a day. She will follow-up in his office and he will likely wean her off of steroids over the next several months. The patient will be discharged home today in stable condition and Dr. Ruiz does note that this patient often has episodes of hypoxia which is her norm. At this point maximum hospital benefits been reached. The patient will be discharged home on 05/04/2017 in stable condition. Physical Exam Vital Signs: Temp Pulse Resp BP Pulse Ox 97.6 F 90 18 125/62 94 05/03/17 04:27 05/03/17 08:27 05/03/17 08:27 05/03/17 04:27 05/03/17 08:27 Intake & Output 05/02/17 05/03/17 05/04/17 06:59 06:59 06:59 Intake Total 560 1230 Balance 560 1230 Weight 108.3 kg 106.6 kg General appearance: PRESENT: no acute distress, morbidly obese, well-developed, well-nourished Head exam: PRESENT: atraumatic, normocephalic Mouth exam: PRESENT: moist, tongue midline Respiratory exam: PRESENT: clear to auscultation dee, decreased breath sounds. ABSENT: rales, rhonchi, wheezes Cardiovascular exam: PRESENT: RRR. ABSENT: diastolic murmur, rubs, systolic murmur GI/Abdominal exam: PRESENT: normal bowel sounds, soft. ABSENT: distended, guarding, mass, organolmegaly, rebound, tenderness Rectal exam: PRESENT: deferred Extremities exam: PRESENT: full ROM. ABSENT: calf tenderness, clubbing, pedal edema Neurological exam: PRESENT: alert, awake, oriented to person, oriented to place , oriented to time, oriented to situation, CN II-XII grossly intact. ABSENT: motor sensory deficit Psychiatric exam: PRESENT: appropriate affect, normal mood. ABSENT: homicidal ideation, suicidal ideation Skin exam: PRESENT: dry, intact, warm. ABSENT: cyanosis, rash Results Laboratory Results: 05/02/17 04:14 05/02/17 04:14 Impressions: Chest X-Ray 04/30/17 17:00 IMPRESSION: NO ACUTE RADIOGRAPHIC FINDING IN THE CHEST. NO SIGNIFICANT CHANGE FROM PRIOR STUDY. Chest/Abdomen CTA 05/01/17 00:00 IMPRESSION: Bibasilar atelectasis. Lingular atelectasis. Pulmonary fibrosis No CT angio evidence of acute pulmonary emboli. No thoracic aortic dissection. 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 Time Spent: Greater than 30 Minutes
[2017-05-03] MEDS ORDERED: PREDNISONE 20 MG TABLET PO ONE (13:30)
[2017-05-03] MEDS: ATORVASTATIN CALCIUM 10 MG TABLET PO SCH (21:33)
[2017-05-03] MEDS: MONTELUKAST SODIUM 10 MG TABLET PO SCH (21:33)
[2017-05-03] MEDS: INSULIN DETEMIR 100 UNIT/ML 3 ML PEN SUBCUT SCH (21:47)
[2017-05-04] MEDS: IPRATROPIUM/ALBUTEROL 0.5-2.5 MG/3 ML AMPUL NEB SCH ×2 (02:44→08:29)
[2017-05-04] MEDS: HEPARIN SOD (PORCINE) 5,000 UNIT/ML 1 ML SYRINGE SUBCUT SCH (06:22)
[2017-05-04] MEDS: LEVOFLOXACIN 750 MG/D5W RTU 750 MG/150 ML RTUPB IV SCH (08:32)
[2017-05-04] MEDS: INSULIN LISPRO 100 UNIT/ML 3 ML VIAL SUBCUT PRN (08:32)
[2017-05-04] MEDS: METFORMIN HCL 500 MG TABLET PO SCH (08:33)
[2017-05-04 08:51] VITALS: BP 144/67
[2017-05-04] MEDS ORDERED: PREDNISONE 20 MG TABLET PO SCH (10:00)
== END 2017-05-04 10:14 | disposition home or self-care (01) | DRG 189 ==
LOC: ER 16:52 → INTOOBSV 22:01 → EH 22:01 → OBSVTOIN 22:01 → 4N 05-01 01:48 → OBSVTOIN 05-01 13:23 → 4S 05-01 18:43
PROVIDERS: ADMIT Internal Medicine; ATTEND Internal Medicine
DX: J96.22 Acute and chronic respiratory failure with hypercapnia (principal); J18.9 Pneumonia, unspecified organism; C85.90 Non-Hodgkin lymphoma, unspecified, unspecified site; J96.21 Acute and chronic respiratory failure with hypoxia; J20.9 Acute bronchitis, unspecified; J84.10 Pulmonary fibrosis, unspecified; E11.9 Type 2 diabetes mellitus without complications; G47.33 Obstructive sleep apnea (adult) (pediatric); K21.9 Gastro-esophageal reflux disease without esophagitis; Z79.4 Long term (current) use of insulin; Z79.899 Other long term (current) drug therapy; Z87.891 Personal history of nicotine dependence
CPT/HCPCS: 36415; 71010; 71275; 80048; 80053; 81001; 82803; 82962; 83735; 83880; 85025; 93005; 93010; 94640; 94660; 94799; 96365; 96372; 99285; J0456; J1644; J1815; J1956; J2920; J3475; J3490; J7060; J7512; J7620

== ENCOUNTER 2017-06-10 10:39 | Inpatient (IN) | payer MEDICARE, MEDICAID ==
[2017-06-10] MEDS ORDERED: IPRATROPIUM/ALBUTEROL 0.5-2.5 MG/3 ML AMPUL NEB ONE ×2 (10:55→12:51)
[2017-06-10] MEDS ORDERED: MAGNESIUM SULFATE/D5W 1 GM/100 ML RTUPB IV ONE (10:56)
[2017-06-10] MEDS ORDERED: METHYLPREDNISOLONE INJ 125 MG/2 ML SDV IV ONE (10:56)
--- NOTE | 2017-06-10 11:00 | ER Document Report ---
ED General - General Stated Complaint: DIFFICULTY BREATHING Time Seen by Provider: 06/10/17 10:55 Mode of Arrival: Medic Information source: Patient Notes: This is a 52-year-old female with a history of diabetes and end-stage COPD who presents to the emergency room via EMS for severe shortness of breath. Patient reports having increased cough with sputum production. She denies fever. Normally, her oxygen saturation ranged between 89 and 93%. Patient's oxygen saturation was 80% on arrival to the emergency room with severe shortness of breath, accessory muscle use. TRAVEL OUTSIDE OF THE [place] IN LAST 30 DAYS: No - HPI Onset: Just prior to arrival Onset/Duration: Sudden Quality of pain: No pain Severity: None Pain Level: Denies Associated symptoms: Chills, Productive cough, Shortness of breath. denies: Fever Exacerbated by: Denies Relieved by: Denies Similar symptoms previously: Yes Recently seen / treated by doctor: Yes - Related Data Allergies/Adverse Reactions: corn [[place]] Allergy (Severe, Verified 06/20/16 21:35) COLITIS Shellfish * [Shellfish] Allergy (Severe, Verified 06/21/16 07:47) COLITIS peanut Adverse Reaction (Verified 06/21/16 07:47) SEEDS Allergy (Intermediate, Uncoded 12/20/14 14:34) COLITIS LETTUCE Adverse Reaction (Severe, Uncoded 12/20/14 14:34) COLITIS Home Medications: Current Home Medications Albuterol Sulfate [Proair HFA] 2 puff IH Q6HP PRN 06/10/17 [History] Cholestyramine (with Sugar) [Cholestyramine Packet] 4 gm PO BID 06/10/17 [ History] Fluticasone Propionate [Flonase Nasal [place] 50 Mcg/[place] 16 gm] 1 spray NASL DAILY 06/10/17 [History] Fluticasone/Salmeterol [Advair 500-50 Diskus 28 Dose] 1 puff IH Q12 06/10/17 [ History] Insulin Detemir [Levemir Flextouch] 30 unit SUBCUT QHS 06/10/17 [History] Liraglutide [Victoza 2-Ambrosio] 1.2 mg SUBCUT DAILY 06/10/17 [History] Lisinopril/Hydrochlorothiazide [Lisinopril-Hctz 10-12.5 mg Tab] 1 tab PO DAILY 06/10/17 [History] Metformin HCl [Glucophage] 1,000 mg PO BIDACBS 06/10/17 [History] Montelukast Sodium [Singulair 10 mg Tablet] 10 mg PO QHS 06/10/17 [History] Omeprazole 20 mg PO BID 06/10/17 [History] Pravastatin Sodium [Pravachol] 40 mg PO QHS 06/10/17 [History] Tiotropium [place] [Spiriva Handihaler 18 mcg/dose (30 Dose)] 1 cap IH DAILY 01/19 [History] Past Medical History - General Information source: Patient - Social History Smoking Status: Former Smoker Cigarette use (# per day): No Chew tobacco use (# tins/day): No Smoking Education Provided: No Frequency of alcohol use: None Drug Abuse: None Lives with: Family Family History: COPD Patient has suicidal ideation: No Patient has homicidal ideation: No - Past Medical History Cardiac Medical History: Reports: Hx Hypercholesterolemia, Hx Hypertension Denies: Hx Coronary Artery Disease, Hx Heart Attack Pulmonary Medical History: Reports: Hx Asthma, Hx Bronchitis, Hx COPD - Hospitalized 06/15 w/persistent pulmonary failure, Hx Pneumonia - ARDS, Hx Intubation - 2 in the past adamantly refuses additional intubations, Hx Respiratory Failure, Hx Sleep Apnea Denies: Hx Tuberculosis Neurological Medical History: Reports: Hx Cerebrovascular Accident - "Mild" 02/19 Endocrine Medical History: Reports: Hx Diabetes Mellitus Type 1, Hx Diabetes Mellitus Type 2 GI Medical History: Reports: Hx Gastroesophageal Reflux Disease, Hx Hiatal Hernia Musculoskeltal Medical History: Reports Hx Arthritis - Gout Psychiatric Medical History: Denies: Hx Depression Past Surgical History: Reports: Hx Appendectomy, Hx Bowel Surgery, Hx Colostomy - ileostomy placed 05/15; subsequently closed., Hx Tubal Ligation. Denies: Hx Pacemaker - Immunizations Hx Diphtheria, Pertussis, Tetanus Vaccination: No Hx Pneumococcal Vaccination: 06/22/11 Review of Systems - Review of Systems Constitutional: denies: Chills, Fever EENT: No symptoms reported Cardiovascular: No symptoms reported Respiratory: See HPI Gastrointestinal: No symptoms reported Genitourinary: No symptoms reported Female Genitourinary: No symptoms reported Musculoskeletal: No symptoms reported Skin: No symptoms reported Hematologic/Lymphatic: No symptoms reported Neurological/Psychological: No symptoms reported Physical Exam - Vital signs Vitals: BP Pulse Ox 142/67 H 86 L 06/10/17 10:46 06/10/17 10:46 Notes: Physical exam: GENERAL: Severe respiratory distress, hypoxia, tachypnea, accessory muscle use HEAD: Atraumatic, normocephalic. EYES: Pupils equal round and reactive to light, extraocular movements intact, sclera anicteric, conjunctiva are normal. ENT: Moist mucous membranes. NECK: Normal range of motion, supple without obvious mass LUNGS: Bilateral wheezing HEART: Regular rate and rhythm without murmurs, rubs or gallops. ABDOMEN: Soft, normoactive bowel sounds. No tenderness to palpation. No guarding, no rebound. No masses appreciated. EXTREMITIES: Normal range of motion, no pitting or edema. No clubbing or cyanosis. NEUROLOGICAL: Cranial nerves II through XII grossly intact. Normal speech, moving all extremities. PSYCH: Normal mood, normal affect. SKIN: Warm, Dry, normal turgor, no rashes or lesions noted. Course - Vital Signs Vital signs: Temp Pulse Resp BP Pulse Ox 98.3 F 111 H 29 H 143/53 H 85 L 06/10/17 17:11 06/10/17 17:11 06/10/17 17:30 06/10/17 17:11 06/10/17 17:11 - Laboratory Result Diagrams: 06/10/17 10:55 06/10/17 10:55 Laboratory results interpreted by me: 06/10/17 06/10/17 10:55 10:55 MCV 77 L MCH 24.8 L RDW 20.9 H Sodium 146.2 H Carbon Dioxide 35 H Glucose 145 H - Diagnostic Test Radiology reviewed: Image reviewed, Reports reviewed - Chest x-ray shows chronic fibrotic lung disease Critical Care Note - Critical Care Note Total time excluding time spent on procedures (mins): 80 Discharge - Discharge Clinical Impression: Severe COPD Condition: Serious Disposition: ADMITTED INPATIENT Unit Admitted: [facility]
--- NOTE | 2017-06-10 11:21 | RADIOLOGY REPORT (SQ) ---
EXAM DESCRIPTION: CHEST SINGLE VIEW COMPLETED DATE/TIME: 06/10/2017 11:08 am REASON FOR STUDY: sob COMPARISON: CT angio chest 05/01/2017, 06/20/2016 AP chest 04/30/2017, 06/20/2016 EXAM PARAMETERS: NUMBER OF VIEWS: One view. TECHNIQUE: Single frontal radiographic view of the chest acquired. RADIATION DOSE: NA LIMITATIONS: None. FINDINGS: LUNGS AND PLEURA: Diffusely abnormal lungs, upper lobes are hyperlucent from obstructive d isease. There are diffuse increased interstitial markings in the mid and lower lungs, likely underly ing pulmonary fibrosis. This pattern is similar compared to previous studies. No dense consolidation worrisome for acute pneumonia. Chronic opacification left lateral costophreni c sulcus from atelectasis. No pleural effusions. No pneumothorax. MEDIASTINUM AND HILAR STRUCTURES: No masses. Contour normal. HEART AND VASCULAR STRUCTURES: Stable borderline cardiomegaly BONES: Osteopenic HARDWARE: None in the chest. OTHER: No other significant finding. IMPRESSION: Abnormal lungs with obstructive disease and increased interstitial markings probably fro m 100 fibrosis No acute findings TECHNICAL DOCUMENTATION: JOB ID: [id number]- All Rights Reserved
[2017-06-10 11:24] LABS: ABSOLUTE EOSINOPHILS # (AUTO) 0.2 10^3/uL (0.0-0.6); ABSOLUTE LYMPHOCYTES (AUTO) 1.2 10^3/uL (0.5-4.7); ABSOLUTE MONOCYTES (AUTO) 0.6 10^3/uL (0.1-1.4); ABSOLUTE NEUT (AUTO) 5.2 10^3/uL (1.7-8.2); BASOPHILS % (AUTO) 0.4 % (0-2); EOSINOPHILS % (AUTO) 2.3 % (0-6); HEMATOCRIT 40.4 % (36.0-47.0); HGB HCT DIFFERENCE -1.4; LYMPHOCYTES % (AUTO) 16.2 % (13-45); MEAN CORPUSCULAR HEMOGLOBIN 24.8 pg (27.0-33.4); MEAN CORPUSCULAR HGB CONC 32.3 g/dL (32.0-36.0); MEAN CORPUSCULAR VOLUME 77 fl (80-97); MONOCYTES % (AUTO) 8.3 % (3-13); RED BLOOD COUNT 5.26 10^6/uL (3.72-5.28); RED CELL DISTRIBUTION WIDTH 20.9 % (11.5-14.0); SEGMENTED NEUTROPHILS % (AUTO) 72.8 % (42-78); WHITE BLOOD COUNT 7.2 10^3/uL (4.0-10.5)
[2017-06-10 11:45] LABS: ALANINE AMINOTRANSFERASE 43 U/L (9-52); ALBUMIN 3.5 g/dL (3.5-5.0); ALKALINE PHOSPHATASE 121 U/L (38-126); ANION GAP 12 (5-19); ASPARTATE AMINO TRANSFERASE 19 U/L (14-36); BILIRUBIN,DIRECT 0.3 mg/dL (0.0-0.4); BILIRUBIN,TOTAL 1.1 mg/dL (0.2-1.3); BLOOD UREA NITROGEN 8 mg/dL (7-20); CALCIUM 8.5 mg/dL (8.4-10.2); CARBON DIOXIDE 35 mmol/L (22-30); CHLORIDE 99 mmol/L (98-107); CREATINE KINASE 62 U/L (30-135); GLUCOSE 145 mg/dL (75-110); POTASSIUM 3.9 mmol/L (3.6-5.0); SODIUM 146.2 mmol/L (137-145); TOTAL PROTEIN 6.3 g/dL (6.3-8.2)
[2017-06-10 11:55] LABS: CREATINE KINASE MB 1.32 ng/mL (<4.55)
[2017-06-10 11:56] LABS: TROPONIN I < 0.012 ng/mL
[2017-06-10] MEDS ORDERED: NORMAL SALINE 500 ML IV PRN (12:51)
[2017-06-10] MEDS ORDERED: NORMAL SALINE 1000 ML 1,000 ML IV PRN (14:00)
[2017-06-10] MEDS ORDERED: PROMETHAZINE HCL INJ 25 MG/1 ML VIAL IV PRN (14:00)
[2017-06-10] MEDS ORDERED: ONDANSETRON HCL INJ/PF 4 MG/2 ML SDV IV PRN (14:00)
--- NOTE | 2017-06-10 14:06 | EKG REPORT ---
SEVERITY:- NORMAL ECG - SINUS RHYTHM : Confirmed by: Joselo Flores MD 10-Jun-2017 14:04:51
[2017-06-10] MEDS ORDERED: GLUCAGON,HUMAN RECOMB 1 MG INJ IM PRN (14:11)
[2017-06-10] MEDS ORDERED: DEXTROSE 40% GEL 15 GM TUBE PO PRN ×2 (14:11)
[2017-06-10] MEDS ORDERED: DEXTROSE 50%-WATER 25 GM/50 ML DISP.SYRIN IV PRN ×2 (14:11)
[2017-06-10] MEDS ORDERED: BUDESONIDE NEB 0.5 MG/2 ML AMPUL NEB ONE (15:00)
[2017-06-10] MEDS: IPRATROPIUM/ALBUTEROL 0.5-2.5 MG/3 ML AMPUL NEB SCH ×3 (15:41→23:53)
[2017-06-10] MEDS: INSULIN LISPRO 100 UNIT/ML 3 ML VIAL SUBCUT PRN ×2 (17:47→22:42)
[2017-06-10] MEDS ORDERED: INFLUENZA ADLT QUAD (36MOS+) 2017-18 VAC 0.5 ML SYR IM PRN (17:58)
[2017-06-10] MEDS ORDERED: (PENDING PHARMACY ID) (Cholestyramine (With Sugar) [Cholestyramine Packet] 4 GM) PO SCH (18:00)
[2017-06-10] MEDS: BUDESONIDE NEB 0.5 MG/2 ML AMPUL NEB SCH (19:53)
[2017-06-10] MEDS: MONTELUKAST SODIUM 10 MG TABLET PO SCH (21:18)
[2017-06-10] MEDS: ATORVASTATIN CALCIUM 10 MG TABLET PO SCH (21:19)
[2017-06-10] MEDS: METHYLPREDNISOLONE INJ 40 MG/1 ML SDV IV SCH (21:19)
[2017-06-10] MEDS: GUAIFENESIN 600 MG TABLET.SA PO SCH (21:19)
[2017-06-10] MEDS: INSULIN DETEMIR 100 UNIT/ML 3 ML PEN SUBCUT SCH (21:20)
[2017-06-10] MEDS ORDERED: (PENDING PHARMACY ID) (Pravastatin Sodium [Pravachol] 40 MG) PO SCH (22:00)
[2017-06-11] MEDS: IPRATROPIUM/ALBUTEROL 0.5-2.5 MG/3 ML AMPUL NEB SCH ×3 (04:05→11:45)
[2017-06-11] MEDS: LANSOPRAZOLE 30 MG TAB.RAP.DR PO SCH (05:31)
[2017-06-11] MEDS: INSULIN LISPRO 100 UNIT/ML 3 ML VIAL SUBCUT PRN ×4 (05:31→21:36)
[2017-06-11] MEDS: METHYLPREDNISOLONE INJ 40 MG/1 ML SDV IV SCH ×2 (05:32→13:57)
[2017-06-11 06:25] LABS: ARTERIAL BLOOD O2 SATURATION 91.7 % (94-98)
[2017-06-11] MEDS: BUDESONIDE NEB 0.5 MG/2 ML AMPUL NEB SCH ×2 (07:52→20:19)
[2017-06-11] MEDS: ENOXAPARIN SODIUM INJ 40 MG/0.4 ML DISP.SYRIN SUBCUT SCH (09:19)
[2017-06-11] MEDS: LISINOPRIL 10 MG TABLET PO SCH (09:20)
[2017-06-11] MEDS: AZITHROMYCIN 250 MG TABLET PO SCH (09:21)
[2017-06-11] MEDS ORDERED: METOPROLOL TARTRATE PF/INJ 5 MG/5 ML SDV IV ONE (09:21)
[2017-06-11] MEDS: HYDROCHLOROTHIAZIDE 12.5 MG CAPSULE PO SCH (09:22)
[2017-06-11] MEDS: GUAIFENESIN 600 MG TABLET.SA PO SCH ×2 (09:22→21:34)
[2017-06-11] MEDS: CEFTRIAXONE 1 GM/D5W RTU 1 GM/50 ML RTUPB IV SCH (09:23)
[2017-06-11] MEDS: FLUTICASONE NASAL SPRAY 50 MCG/SPRY 120 SPRAY/16 GM NASL SCH (09:26)
[2017-06-11] MEDS ORDERED: NORMAL SALINE 500 ML IV ONE (10:00)
[2017-06-11] MEDS ORDERED: (PENDING PHARMACY ID) (Lisinopril/Hydrochlorothiazide [Lisinopril-Hctz 10-12.5 Mg Tab] 1 T PO SCH (10:00)
[2017-06-11] MEDS ORDERED: VANCOMYCIN HCL 0 MG in DEXTROSE 5%-WATER 250 ML IV NR (12:15)
[2017-06-11] MEDS: CHOLESTYRAMINE/ASPARTAME 4 GM PACKET PO SCH ×2 (12:27→17:40)
[2017-06-11] MEDS: LEVALBUTEROL HCL NEB 1.25 MG/3 ML AMPUL NEB SCH ×2 (13:55→20:20)
[2017-06-11] MEDS: VANCOMYCIN HCL 1,250 MG in DEXTROSE 5%-WATER 250 ML IV SCH ×2 (14:35→21:35)
[2017-06-11] MEDS ORDERED: INSULIN LISPRO 100 UNIT/ML 3 ML VIAL SUBCUT ONE (15:53)
[2017-06-11] MEDS: ATORVASTATIN CALCIUM 10 MG TABLET PO SCH (21:34)
[2017-06-11] MEDS: INSULIN DETEMIR 100 UNIT/ML 3 ML PEN SUBCUT SCH (21:34)
[2017-06-11] MEDS: MONTELUKAST SODIUM 10 MG TABLET PO SCH (21:34)
[2017-06-12] MEDS: LEVALBUTEROL HCL NEB 1.25 MG/3 ML AMPUL NEB SCH ×4 (01:53→20:16)
--- NOTE | 2017-06-12 02:18 | PDOC H&P ---
History of Present Illness Admission Date/PCP: 06/10/17 14:00 BRONWYN ROSE MD History of Present Illness: JACOB TOLBERT is a 52 year old female with a history of COPD followed by Dr. Ruiz. Patient states she noticed that her breathing wasn't too good so she asked to be brought to the hospital. Patient states that she woke up and too off her CPAP and placed on her oxygen. Her sats went down and she turned blue. She was having difficulty walking to the restroom without become short of breathe. She reports coughing x 1 week. The cough is productive of white sputum. She was having rib cage tenderness because of the coughing. She did have any fever put felt warm. She has not had her flu shot. She states she is suppose to have it on the 25 of June. She states she always become ill after having it. Past Medical History Cardiac Medical History: Reports: Hyperlipidema, Hypertension Denies: Coronary Artery Disease, Myocardial Infarction Pulmonary Medical History: Reports: Asthma, Bronchitis, Chronic Obstructive Pulmonary Disease (COPD) - Hospitalized 06/15 w/persistent pulmonary failure, Intubation - 2 in the past adamantly refuses additional intubations, Pneumonia - ARDS, Respiratory Failure, Sleep Apnea Denies: Tuberculosis Endocrine Medical History: Reports: Diabetes Mellitus Type 1, Diabetes Mellitus Type 2 GI Medical History: Reports: Gastroesophageal Reflux Disease, Hiatal Hernia Musculoskeltal Medical History: Reports: Arthritis - Gout Psychiatric Medical History: Denies: Depression Hematology: Denies: Anemia Past Surgical History Past Surgical History: Reports: Appendectomy, Colostomy - ileostomy placed 05/15 ; subsequently closed., Tubal Ligation Denies: Pacemaker Social History Information Source: Patient Lives with: Family Smoking Status: Former Smoker Frequency of Alcohol Use: None Hx Recreational Drug Use: No Drugs: None Hx Prescription Drug Abuse: No - Advance Directive Resuscitation Status: Full Code Family History Family History: COPD Parental Family History Reviewed: Yes Children Family History Reviewed: Yes Sibling(s) Family History Reviewed.: Yes Medication/Allergy Home Medications: Albuterol Sulfate [Proair HFA] 2 puff IH Q6HP PRN 06/10/17 Cholestyramine (with Sugar) [Cholestyramine Packet] 4 gm PO BID 06/10/17 Fluticasone Propionate [Flonase Nasal [place] 50 Mcg/[place] 16 gm] 1 spray NASL DAILY 06/10/17 Fluticasone/Salmeterol [Advair 500-50 Diskus 28 Dose] 1 puff IH Q12 06/10/17 Insulin Detemir [Levemir Flextouch] 30 unit SUBCUT QHS 06/10/17 Liraglutide [Victoza 2-Ambrosio] 1.2 mg SUBCUT DAILY 06/10/17 Lisinopril/Hydrochlorothiazide [Lisinopril-Hctz 10-12.5 mg Tab] 1 tab PO DAILY 06/10/17 Metformin HCl [Glucophage] 1,000 mg PO BIDACBS 06/10/17 Montelukast Sodium [Singulair 10 mg Tablet] 10 mg PO QHS 06/10/17 Omeprazole 20 mg PO BID 06/10/17 Pravastatin Sodium [Pravachol] 40 mg PO QHS 06/10/17 Tiotropium [place] [Spiriva Handihaler 18 mcg/dose (30 Dose)] 1 cap IH DAILY 01/19 Allergies/Adverse Reactions: corn [[place]] Allergy (Severe, Verified 06/20/16 21:35) COLITIS Shellfish * [Shellfish] Allergy (Severe, Verified 06/21/16 07:47) COLITIS peanut Adverse Reaction (Verified 06/21/16 07:47) SEEDS Allergy (Intermediate, Uncoded 12/20/14 14:34) COLITIS LETTUCE Adverse Reaction (Severe, Uncoded 12/20/14 14:34) COLITIS Review of Systems Constitutional: ABSENT: chills, fever(s), headache(s), weight gain, weight loss Eyes: ABSENT: visual disturbances Ears: ABSENT: hearing changes Cardiovascular: ABSENT: chest pain, dyspnea on exertion, edema, orthropnea, palpitations Respiratory: PRESENT: cough, dyspnea, sputum. ABSENT: hemoptysis Gastrointestinal: ABSENT: abdominal pain, constipation, diarrhea, hematemesis, hematochezia, nausea, vomiting Genitourinary: ABSENT: dysuria, hematuria Musculoskeletal: ABSENT: joint swelling Integumentary: ABSENT: rash, wounds Neurological: ABSENT: abnormal gait, abnormal speech, confusion, dizziness, focal weakness, syncope Psychiatric: ABSENT: anxiety, depression, homidical ideation, suicidal ideation Endocrine: ABSENT: cold intolerance, heat intolerance, polydipsia, polyuria Hematologic/Lymphatic: ABSENT: easy bleeding, easy bruising Physical Exam Vital Signs: Temp Pulse Resp BP Pulse Ox 97.3 F 74 18 101/74 97 06/11/17 15:44 06/11/17 15:44 06/11/17 15:44 06/11/17 15:44 06/11/17 15:44 Intake & Output 06/10/17 06/11/17 06/12/17 06:59 06:59 06:59 Intake Total 322 4759 Output Total 1450 Balance -1128 4759 Weight 107.8 kg 197.8 kg General appearance: PRESENT: no acute distress, disheveled, morbidly obese Head exam: PRESENT: normocephalic Eye exam: PRESENT: EOMI. ABSENT: scleral icterus Ear exam: PRESENT: normal external ear exam Mouth exam: PRESENT: moist, tongue midline, other - bipap mask in place Teeth exam: PRESENT: edentulous Neck exam: ABSENT: carotid bruit, JVD, lymphadenopathy, thyromegaly Respiratory exam: PRESENT: clear to auscultation dee. ABSENT: rales, rhonchi, wheezes Cardiovascular exam: PRESENT: RRR, +S1, +S2. ABSENT: diastolic murmur, rubs, systolic murmur Pulses: PRESENT: normal dorsalis pedis pul Vascular exam: PRESENT: normal capillary refill GI/Abdominal exam: PRESENT: normal bowel sounds, soft. ABSENT: distended, guarding, mass, organolmegaly, rebound, tenderness Rectal exam: PRESENT: deferred Extremities exam: PRESENT: full ROM. ABSENT: calf tenderness, clubbing, pedal edema Neurological exam: PRESENT: alert, awake, oriented to person, oriented to place , oriented to time, oriented to situation, CN II-XII grossly intact. ABSENT: motor sensory deficit Psychiatric exam: PRESENT: unusual affect. ABSENT: homicidal ideation, suicidal ideation Skin exam: PRESENT: dry, intact, warm. ABSENT: cyanosis, rash Results Laboratory Results: 06/11/17 06:15 Carbonic Acid 1.58 H HCO3/H2CO3 Ratio 19:1 ABG pH 7.38 ABG pCO2 52.6 H ABG pO2 64.0 L ABG HCO3 30.2 H ABG O2 Saturation 91.7 L ABG Base Excess 4.0 FiO2 50% 06/10/17 15:05 Troponin I < 0.012 Impressions: Chest X-Ray 06/10/17 10:55 IMPRESSION: Abnormal lungs with obstructive disease and increased interstitial markings probably from 100 fibrosis No acute findings Assessment & Plan - Diagnosis (1) COPD (chronic obstructive pulmonary disease) with acute bronchitis Is this a current diagnosis for this admission?: Yes Plan: Patient has no finding on chest X ray. She does have productive cough. She is unable to walk to the bathroom without shortness of breathe which patient states she is usually able to do. Patient started on steroids, nebs, and antibiotics. Will check for flu if have not already been done. (2) Acute on chronic respiratory failure with hypoxia and hypercapnia Is this a current diagnosis for this admission?: Yes Plan: Possibly due to change in weather or acute bronchitis. There are no acute finding on chest XR. Patient continue on bipap and supplement oxygen. (3) Diabetes mellitus Qualifiers: Diabetes mellitus type: type 2 Is this a current diagnosis for this admission?: Yes Plan: Will start patient on home dose of insulin along with sliding scale. Will monitor for hyperglycemia especially with patient being on steroids. (4) GERD (gastroesophageal reflux disease) Is this a current diagnosis for this admission?: Yes Plan: Patient on PPI. (5) HLD (hyperlipidemia) Qualifiers: Hyperlipidemia type: unspecified Qualified Code(s): E78.5 - Hyperlipidemia , unspecified Plan: Continue statin. (6) HTN (hypertension) Qualifiers: Hypertension type: essential hypertension Qualified Code(s): I10 - Essential (primary) hypertension Is this a current diagnosis for this admission?: Yes Plan: Appear stable. Continue anti hypertensive. (7) Morbid obesity Is this a current diagnosis for this admission?: Yes Plan: Patient counseled on diet and activity as tolerated. Patient is aware that her elevated weight can affect her breathing negatively. (8) HANNAH (obstructive sleep apnea) Is this a current diagnosis for this admission?: Yes Plan: Patient do bipap here but is complaint with CPAP at home. - Time Time Spent: 30 to 50 Minutes Medications reviewed and adjusted accordingly: Yes Anticipated discharge: Home Within: within 72 hours - Inpatient Certification Medical Necessity: Need Close Monitoring Due to Risk of Patient Decompensation
--- NOTE | 2017-06-12 02:29 | PDOC PROGRESS REPORT ---
Subjective Progress Note for:: 06/11/17 Subjective:: Patient being followed for COPD exacerbation. Patient's breathing is improving. Patient however having tachycardia (sinus) and hyperglycemia. Physical Exam Vital Signs: Temp Pulse Resp BP Pulse Ox 97.3 F 70 16 133/74 H 95 06/11/17 23:49 06/12/17 01:50 06/12/17 01:50 06/11/17 23:49 06/12/17 00:25 Intake & Output 06/10/17 06/11/17 06/12/17 06:59 06:59 06:59 Intake Total 322 5114 Output Total 1450 500 Balance -1128 4614 Weight 107.8 kg 197.8 kg General appearance: PRESENT: no acute distress, morbidly obese Head exam: PRESENT: atraumatic, normocephalic Eye exam: PRESENT: EOMI. ABSENT: scleral icterus Ear exam: PRESENT: normal external ear exam Mouth exam: PRESENT: moist Neck exam: ABSENT: carotid bruit, JVD, lymphadenopathy, thyromegaly Respiratory exam: PRESENT: clear to auscultation dee, symmetrical, unlabored. ABSENT: rales, rhonchi, tachypnea, wheezes Cardiovascular exam: PRESENT: RRR. ABSENT: diastolic murmur, rubs, systolic murmur Pulses: PRESENT: normal dorsalis pedis pul Vascular exam: PRESENT: normal capillary refill GI/Abdominal exam: PRESENT: normal bowel sounds, soft. ABSENT: distended, guarding, mass, organolmegaly, rebound, tenderness Rectal exam: PRESENT: deferred Extremities exam: PRESENT: full ROM. ABSENT: calf tenderness, clubbing, pedal edema Neurological exam: PRESENT: alert, awake, oriented to person, oriented to place , oriented to time, oriented to situation, CN II-XII grossly intact. ABSENT: motor sensory deficit Psychiatric exam: PRESENT: appropriate affect, normal mood. ABSENT: homicidal ideation, suicidal ideation Skin exam: PRESENT: cyanosis - lipid and tongue, dry, intact, warm. ABSENT: rash Results Laboratory Results: 06/11/17 06:15 Carbonic Acid 1.58 H HCO3/H2CO3 Ratio 19:1 ABG pH 7.38 ABG pCO2 52.6 H ABG pO2 64.0 L ABG HCO3 30.2 H ABG O2 Saturation 91.7 L ABG Base Excess 4.0 FiO2 50% 06/10/17 15:05 Troponin I < 0.012 Impressions: Chest X-Ray 06/10/17 10:55 IMPRESSION: Abnormal lungs with obstructive disease and increased interstitial markings probably from 100 fibrosis No acute findings Assessment & Plan - Diagnosis (1) COPD (chronic obstructive pulmonary disease) with acute bronchitis Is this a current diagnosis for this admission?: Yes Plan: Patient has no finding on chest X ray. She does have productive cough. She is unable to walk to the bathroom without shortness of breathe which patient states she is usually able to do. Weaning patient steroid as there is no wheezing to oral and patient is extremely hyperglycemia. Switching nebs to xopenex as she is tachycardic with the albuterol. Continue current antibitoics with the addition of vancomycin for the positive blood culture until MRSA bacteremia is ruled out. Did discuss with Dr. Ruiz. She is to follow up with him on discharge. (2) Acute on chronic respiratory failure with hypoxia and hypercapnia Is this a current diagnosis for this admission?: Yes Plan: Appear stable. Will continue biapap at rest and supplemental oxygen otherwise. (3) Diabetes mellitus Qualifiers: Diabetes mellitus type: type 2 Is this a current diagnosis for this admission?: Yes Plan: Currently not well controlled do to steroid which are being weaned. Continue basal insulin with SSI. Will provided additional coverage as needed. (4) GERD (gastroesophageal reflux disease) Is this a current diagnosis for this admission?: Yes Plan: Patient on PPI. (5) HLD (hyperlipidemia) Qualifiers: Hyperlipidemia type: unspecified Qualified Code(s): E78.5 - Hyperlipidemia , unspecified Plan: Continue statin. (6) HTN (hypertension) Qualifiers: Hypertension type: essential hypertension Qualified Code(s): I10 - Essential (primary) hypertension Is this a current diagnosis for this admission?: Yes Plan: Appear stable. Continue anti hypertensive. (7) Morbid obesity Is this a current diagnosis for this admission?: Yes Plan: Patient counseled on diet and activity as tolerated. Patient is aware that her elevated weight can affect her breathing negatively. (8) HANNAH (obstructive sleep apnea) Is this a current diagnosis for this admission?: Yes Plan: Patient do bipap here but is complaint with CPAP at home. (9) Tachycardia Is this a current diagnosis for this admission?: Yes Plan: Due to duo nebs. Patient bolused and given IV metoprolol. Patient changed to xopenex. Tachycardia is resolving. - Time Time Spent with patient: 15-24 minutes Medications reviewed and adjusted accordingly: Yes Anticipated discharge: Home Within: within 48 hours - Patient is still having difficulty getting up and walking to bathroom without becoming more short of breathe than usual.
--- NOTE | 2017-06-12 02:30 | Progress Note ---
Provider Note Provider Note: Please not that that the progress not for 06/12 should be dated 06/11. Therefore patient will need a progress note for 06/12. Thank you.
[2017-06-12] MEDS: LANSOPRAZOLE 30 MG TAB.RAP.DR PO SCH (05:04)
[2017-06-12] MEDS: VANCOMYCIN HCL 1,250 MG in DEXTROSE 5%-WATER 250 ML IV SCH ×3 (05:04→22:11)
[2017-06-12] MEDS: INSULIN LISPRO 100 UNIT/ML 3 ML VIAL SUBCUT PRN ×4 (06:16→22:09)
[2017-06-12] MEDS: BUDESONIDE NEB 0.5 MG/2 ML AMPUL NEB SCH ×2 (08:02→20:16)
[2017-06-12] MEDS: AZITHROMYCIN 250 MG TABLET PO SCH (09:24)
[2017-06-12] MEDS: HYDROCHLOROTHIAZIDE 12.5 MG CAPSULE PO SCH (09:24)
[2017-06-12] MEDS: PREDNISONE 20 MG TABLET PO SCH (09:25)
[2017-06-12] MEDS: LISINOPRIL 10 MG TABLET PO SCH (09:25)
[2017-06-12] MEDS: GUAIFENESIN 600 MG TABLET.SA PO SCH ×2 (09:25→22:10)
[2017-06-12] MEDS: FLUTICASONE NASAL SPRAY 50 MCG/SPRY 120 SPRAY/16 GM NASL SCH (09:26)
[2017-06-12] MEDS: CHOLESTYRAMINE/ASPARTAME 4 GM PACKET PO SCH ×2 (09:26→17:03)
[2017-06-12] MEDS: ENOXAPARIN SODIUM INJ 40 MG/0.4 ML DISP.SYRIN SUBCUT SCH (09:27)
[2017-06-12] MEDS: CEFTRIAXONE 1 GM/D5W RTU 1 GM/50 ML RTUPB IV SCH (09:27)
--- NOTE | 2017-06-12 11:52 | PDOC PROGRESS REPORT ---
Subjective Progress Note for:: 06/12/17 Subjective:: Patient is a 52-year-old woman morbidly obese, chronic respiratory failure on home oxygen follows by pulmonary. She presented to the hospital on 06/10/2017 with complaint of worsening shortness of breath associated with productive cough of whitish sputum. She does have a HANNAH and on CPAP at home. States to have noted that her sats went down and she was turning blue. Her chest x-ray on presentation with changes of obstructive disease increased interstitial markings probably from fibrosis. Seen and examined this am, she reports improvement from her breathing and patient is aware that she has advanced lung disease. She no longer smokes she reports. Physical Exam Vital Signs: Temp Pulse Resp BP Pulse Ox 98.2 F 75 20 128/66 H 98 06/12/17 07:56 06/12/17 08:02 06/12/17 08:02 06/12/17 07:56 06/12/17 08:02 Intake & Output 06/11/17 06/12/17 06/13/17 06:59 06:59 06:59 Intake Total 322 5969 Output Total 1450 500 Balance -1128 5469 Weight 107.8 kg 109.3 kg General appearance: PRESENT: no acute distress, morbidly obese, well-developed, well-nourished Exam: On BiPAP Head exam: PRESENT: atraumatic, normocephalic Eye exam: PRESENT: conjunctiva pink, EOMI. ABSENT: scleral icterus Ear exam: PRESENT: normal external ear exam Mouth exam: PRESENT: moist, tongue midline Neck exam: ABSENT: carotid bruit, JVD, lymphadenopathy, thyromegaly Respiratory exam: PRESENT: clear to auscultation dee. ABSENT: rales, rhonchi, wheezes Cardiovascular exam: PRESENT: RRR. ABSENT: diastolic murmur, rubs, systolic murmur Vascular exam: PRESENT: normal capillary refill GI/Abdominal exam: PRESENT: normal bowel sounds, soft. ABSENT: distended, guarding, mass, organolmegaly, rebound, tenderness Rectal exam: PRESENT: deferred Extremities exam: PRESENT: full ROM. ABSENT: calf tenderness, clubbing, pedal edema Neurological exam: PRESENT: alert, awake, oriented to person, oriented to place , oriented to time, oriented to situation. ABSENT: motor sensory deficit Psychiatric exam: PRESENT: appropriate affect, normal mood. ABSENT: homicidal ideation, suicidal ideation Skin exam: PRESENT: dry, intact, warm. ABSENT: cyanosis, rash Results Laboratory Results: 06/10/17 14:35 Sputum Gram Stain - Final 06/10/17 14:35 Sputum Sputum Culture - Final NORMAL DIRK 06/10/17 15:05 Troponin I < 0.012 Impressions: Chest X-Ray 06/10/17 10:55 IMPRESSION: Abnormal lungs with obstructive disease and increased interstitial markings probably from 100 fibrosis No acute findings Assessment & Plan - Diagnosis (1) Acute on chronic respiratory failure with hypoxia and hypercapnia Is this a current diagnosis for this admission?: Yes Plan: Chest x-ray on admission with changes consistent with obstructive disease and pulmonary fibrosis Continue oxygen, bronchodilator therapy On IV antibiotics BiPAP as needed (2) COPD (chronic obstructive pulmonary disease) with acute bronchitis Is this a current diagnosis for this admission?: Yes Plan: Continue O2, DuoNeb therapy Follows with pulmonary outpatient She does have advanced lung disease (3) Morbid obesity Is this a current diagnosis for this admission?: Yes Plan: Would benefit from weight loss Caloric controlled diet (4) Diabetes mellitus Qualifiers: Diabetes mellitus type: type 2 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 Is this a current diagnosis for this admission?: Yes Plan: Blood sugar not at goal Currently on long-acting insulin and sliding scale Add Humalog with meals Continue to monitor closely (5) HTN (hypertension) Qualifiers: Hypertension type: essential hypertension Qualified Code(s): I10 - Essential (primary) hypertension Is this a current diagnosis for this admission?: Yes Plan: Currently on lisinopril and HCTZ Continue current management (6) HANNAH (obstructive sleep apnea) Is this a current diagnosis for this admission?: Yes Plan: Nightly CPAP (7) HLD (hyperlipidemia) Qualifiers: Hyperlipidemia type: unspecified Qualified Code(s): E78.5 - Hyperlipidemia , unspecified Plan: Continue statin (8) Gram-positive cocci bacteremia Is this a current diagnosis for this admission?: Yes Plan: Continue vancomycin pending repeat blood culture Hopefully it turns to be a contaminant - Time Time Spent with patient: 25-34 minutes Anticipated discharge: Home Within: within 48 hours
[2017-06-12 14:51] LABS: CREATININE RESULT 0.69 mg/dL (0.52-1.25)
[2017-06-12] MEDS ORDERED: INSULIN LISPRO 100 UNIT/ML 3 ML VIAL SUBCUT SCH (16:00)
[2017-06-12 20:48] LABS: ABSOLUTE LYMPHOCYTES (AUTO) 1.2 10^3/uL (0.5-4.7); ABSOLUTE MONOCYTES (AUTO) 0.7 10^3/uL (0.1-1.4); ABSOLUTE NEUT (AUTO) 8.7 10^3/uL (1.7-8.2); BASOPHILS % (AUTO) 0.3 % (0-2); EOSINOPHILS % (AUTO) 0.1 % (0-6); HEMATOCRIT 38.6 % (36.0-47.0); HEMOGLOBIN 12.6 g/dL (12.0-15.5); HGB HCT DIFFERENCE -0.8; LYMPHOCYTES % (AUTO) 11.4 % (13-45); MEAN CORPUSCULAR HEMOGLOBIN 25.1 pg (27.0-33.4); MEAN CORPUSCULAR HGB CONC 32.6 g/dL (32.0-36.0); MEAN CORPUSCULAR VOLUME 77 fl (80-97); MONOCYTES % (AUTO) 6.4 % (3-13); RED BLOOD COUNT 5.01 10^6/uL (3.72-5.28); RED CELL DISTRIBUTION WIDTH 20.8 % (11.5-14.0); SEGMENTED NEUTROPHILS % (AUTO) 81.8 % (42-78); WHITE BLOOD COUNT 10.6 10^3/uL (4.0-10.5)
[2017-06-12] MEDS: ATORVASTATIN CALCIUM 10 MG TABLET PO SCH (22:10)
[2017-06-12] MEDS: MONTELUKAST SODIUM 10 MG TABLET PO SCH (22:10)
[2017-06-12] MEDS: INSULIN DETEMIR 100 UNIT/ML 3 ML PEN SUBCUT SCH (22:10)
[2017-06-13] MEDS: LEVALBUTEROL HCL NEB 1.25 MG/3 ML AMPUL NEB SCH ×3 (02:01→13:45)
[2017-06-13 05:14] LABS: ANION GAP 11 (5-19); BLOOD UREA NITROGEN 16 mg/dL (7-20); CALCIUM 9.5 mg/dL (8.4-10.2); CARBON DIOXIDE 32 mmol/L (22-30); CHLORIDE 100 mmol/L (98-107); CREATININE RESULT 0.54 mg/dL (0.52-1.25); GLUCOSE 204 mg/dL (75-110); POTASSIUM 4.3 mmol/L (3.6-5.0); SODIUM 142.8 mmol/L (137-145)
[2017-06-13] MEDS: LANSOPRAZOLE 30 MG TAB.RAP.DR PO SCH (05:36)
[2017-06-13] MEDS: VANCOMYCIN HCL 1,250 MG in DEXTROSE 5%-WATER 250 ML IV SCH ×2 (05:36→14:54)
[2017-06-13] MEDS: BUDESONIDE NEB 0.5 MG/2 ML AMPUL NEB SCH (07:58)
[2017-06-13] MEDS ORDERED: INSULIN LISPRO 100 UNIT/ML 3 ML VIAL SUBCUT ONE (08:15)
[2017-06-13] MEDS: INSULIN LISPRO 100 UNIT/ML 3 ML VIAL SUBCUT PRN ×3 (08:28→16:33)
[2017-06-13] MEDS ORDERED: PROMETHAZINE HCL INJ 25 MG/1 ML VIAL IV PRN (08:30)
[2017-06-13] MEDS ORDERED: ONDANSETRON HCL INJ/PF 4 MG/2 ML SDV IV PRN (08:30)
[2017-06-13] MEDS ORDERED: POLYETHYLENE GLYCOL 3350 POWDER 17 GM/1 PACKET PO SCH (10:00)
[2017-06-13] MEDS: CHOLESTYRAMINE/ASPARTAME 4 GM PACKET PO SCH ×2 (10:30→17:06)
[2017-06-13] MEDS: FLUTICASONE NASAL SPRAY 50 MCG/SPRY 120 SPRAY/16 GM NASL SCH (10:31)
[2017-06-13] MEDS: LISINOPRIL 10 MG TABLET PO SCH (10:31)
[2017-06-13] MEDS: PREDNISONE 20 MG TABLET PO SCH (10:32)
[2017-06-13] MEDS: GUAIFENESIN 600 MG TABLET.SA PO SCH (10:32)
[2017-06-13] MEDS: HYDROCHLOROTHIAZIDE 12.5 MG CAPSULE PO SCH (10:32)
[2017-06-13] MEDS: ENOXAPARIN SODIUM INJ 40 MG/0.4 ML DISP.SYRIN SUBCUT SCH (10:36)
[2017-06-13] MEDS: CEFTRIAXONE 1 GM/D5W RTU 1 GM/50 ML RTUPB IV SCH (11:22)
[2017-06-13] MEDS: AZITHROMYCIN 250 MG TABLET PO SCH (11:22)
[2017-06-13] MEDS: INSULIN LISPRO 100 UNIT/ML 3 ML VIAL SUBCUT SCH ×2 (12:04→16:33)
--- NOTE | 2017-06-13 14:24 | PDOC DISCHARGE SUMMARY ---
General - Admit/Disc Date/PCP Admission Date/Primary Care Provider: 06/10/17 14:00 BRONWYN ROSE MD Discharge Date: 06/13/17 - Discharge Diagnosis (1) Acute on chronic respiratory failure with hypoxia and hypercapnia Is this a current diagnosis for this admission?: Yes (2) COPD (chronic obstructive pulmonary disease) with acute bronchitis Is this a current diagnosis for this admission?: Yes (3) Morbid obesity Is this a current diagnosis for this admission?: Yes (4) Diabetes mellitus Is this a current diagnosis for this admission?: Yes (5) HTN (hypertension) Is this a current diagnosis for this admission?: Yes (6) HANNAH (obstructive sleep apnea) Is this a current diagnosis for this admission?: Yes (8) Gram-positive cocci bacteremia Is this a current diagnosis for this admission?: Yes - Additional Information Resuscitation Status: Full Code Discharge Activity: Activity As Tolerated Home Medications: Albuterol Sulfate [Proair HFA] 2 puff IH Q6HP PRN 06/10/17 Fluticasone Propionate [Flonase Nasal [place] 50 Mcg/[place] 16 gm] 1 spray NASL DAILY 06/10/17 Fluticasone/Salmeterol [Advair 500-50 Diskus 28 Dose] 1 puff IH Q12 06/10/17 Insulin Detemir [Levemir Flextouch] 30 unit SUBCUT QHS 06/10/17 Liraglutide [Victoza 2-Ambrosio] 1.2 mg SUBCUT DAILY 06/10/17 Lisinopril/Hydrochlorothiazide [Lisinopril-Hctz 10-12.5 mg Tab] 1 tab PO DAILY 06/10/17 Metformin HCl [Glucophage] 1,000 mg PO BIDACBS 06/10/17 Montelukast Sodium [Singulair 10 mg Tablet] 10 mg PO QHS 06/10/17 Omeprazole 20 mg PO BID 06/10/17 Pravastatin Sodium [Pravachol] 40 mg PO QHS 06/10/17 Tiotropium [place] [Spiriva Handihaler 18 mcg/dose (30 Dose)] 1 cap IH DAILY 01/19 Prednisone [Deltasone 20 mg Tablet] 40 mg PO DAILY #5 tablet 06/13/17 History of Present Illness History of Present Illness: JACOB TOLBERT is a 52 year old female Hospital Course Hospital Course: Patient is a 52-year-old woman morbidly obese, chronic respiratory failure on home oxygen follows by pulmonary. She presented to the hospital on 06/10/2017 with complaint of worsening shortness of breath associated with productive cough of whitish sputum. She does have a HANNAH and on CPAP at home. States to have noted that her sats went down and she was turning blue. Her chest x-ray on presentation with changes of obstructive disease increased interstitial markings probably from fibrosis. She also had a history of pulmonary hypertension. She was started on IV antibiotic and steroids. Her blood culture was noted to be positive but fortunately turned out to be staph epidermidis. Antibiotic was then discontinued. She has been on a home O2 6 L nasal cannula the last day. She remains afebrile and she thinks that her breathing is at baseline. She is being discharged home with tapered prednisone. She need to follow-up with PCP and with pulmonology. Physical Exam Vital Signs: Temp Pulse Resp BP Pulse Ox 97.3 F 72 20 141/70 H 90 L 06/13/17 11:19 06/13/17 11:19 06/13/17 11:19 06/13/17 11:19 06/13/17 11:19 Intake & Output 06/12/17 06/13/17 06/14/17 06:59 06:59 06:59 Intake Total 5969 1905 Output Total 500 Balance 5469 1905 Weight 109.3 kg 110.5 kg General appearance: PRESENT: no acute distress, well-developed, well-nourished Head exam: PRESENT: atraumatic, normocephalic Eye exam: PRESENT: conjunctiva pink, EOMI. ABSENT: scleral icterus Mouth exam: PRESENT: moist, tongue midline Neck exam: ABSENT: JVD Respiratory exam: PRESENT: clear to auscultation dee. ABSENT: rales, rhonchi, wheezes Cardiovascular exam: PRESENT: RRR. ABSENT: diastolic murmur, rubs, systolic murmur Vascular exam: PRESENT: normal capillary refill GI/Abdominal exam: PRESENT: normal bowel sounds, soft. ABSENT: distended, guarding, mass, organolmegaly, rebound, tenderness Rectal exam: PRESENT: deferred Extremities exam: PRESENT: full ROM. ABSENT: calf tenderness, clubbing, pedal edema Neurological exam: PRESENT: alert, awake, oriented to person, oriented to place , oriented to time, oriented to situation. ABSENT: motor sensory deficit Psychiatric exam: PRESENT: appropriate affect, normal mood. ABSENT: homicidal ideation, suicidal ideation Skin exam: PRESENT: dry, intact, warm. ABSENT: cyanosis, rash Results Laboratory Results: 06/12/17 20:37 06/13/17 04:34 06/12/17 06/12/17 06/13/17 13:50 20:37 04:34 WBC 10.6 H RBC 5.01 Hgb 12.6 Hct 38.6 MCV 77 L MCH 25.1 L MCHC 32.6 RDW 20.8 H Plt Count 221 Seg Neutrophils % 81.8 H Lymphocytes % 11.4 L Monocytes % 6.4 Eosinophils % 0.1 Basophils % 0.3 Absolute Neutrophils 8.7 H Absolute Lymphocytes 1.2 Absolute Monocytes 0.7 Absolute Eosinophils 0.0 Absolute Basophils 0.0 Sodium 142.8 Potassium 4.3 Chloride 100 Carbon Dioxide 32 H Anion Gap 11 BUN 16 Creatinine 0.69 0.54 Est GFR ( Amer) > 60 > 60 Est GFR (Non-Af Amer) > 60 > 60 Glucose 204 H Calcium 9.5 06/10/17 14:35 Sputum Gram Stain - Final 06/10/17 14:35 Sputum Sputum Culture - Final NORMAL DIRK 06/10/17 15:05 Troponin I < 0.012 Impressions: Chest X-Ray 06/10/17 10:55 IMPRESSION: Abnormal lungs with obstructive disease and increased interstitial markings probably from 100 fibrosis No acute findings
[2017-06-13 16:41] VITALS: BP 147/61
[2017-06-14] MEDS ORDERED: LANSOPRAZOLE 30 MG TAB.RAP.DR PO SCH (06:00)
== END 2017-06-13 17:37 | disposition home or self-care (01) | DRG 190 ==
LOC: ER 10:39 → UNDOADMIN 13:54 → EH 13:54 → 3W 16:51
PROVIDERS: ADMIT Pediatrics; ATTEND Pediatrics
PROC: 5A09457 Assistance with Respiratory Ventilation, 24-96 Consecutive Hours, Continuous Positive Airway Pressure (ICD-10-PCS; principal; 2017-06-10)
PROC: 3E0F73Z Introduction of Anti-inflammatory into Respiratory Tract, Via Natural or Artificial Opening (ICD-10-PCS; 2017-06-10)
DX: J44.1 Chronic obstructive pulmonary disease with (acute) exacerbation (principal); J96.21 Acute and chronic respiratory failure with hypoxia; J96.22 Acute and chronic respiratory failure with hypercapnia; Z68.41 Body mass index [BMI] 40.0-44.9, adult; R78.81 Bacteremia; J44.0 Chronic obstructive pulmonary disease with (acute) lower respiratory infection; J20.9 Acute bronchitis, unspecified; E66.01 Morbid (severe) obesity due to excess calories; I10 Essential (primary) hypertension; G47.33 Obstructive sleep apnea (adult) (pediatric); E78.5 Hyperlipidemia, unspecified; K21.9 Gastro-esophageal reflux disease without esophagitis; M10.9 Gout, unspecified; E11.65 Type 2 diabetes mellitus with hyperglycemia; R00.0 Tachycardia, unspecified; K44.9 Diaphragmatic hernia without obstruction or gangrene; Z79.899 Other long term (current) drug therapy; Z99.81 Dependence on supplemental oxygen; Z87.891 Personal history of nicotine dependence; Z79.4 Long term (current) use of insulin; Z91.010 Allergy to peanuts; Z91.013 Allergy to seafood; Z91.018 Allergy to other foods; Z83.6 Family history of other diseases of the respiratory system
CPT/HCPCS: 36415; 36600; 71010; 80048; 80053; 80202; 82550; 82553; 82565; 82803; 82962; 84484; 85025; 87040; 87070; 87077; 87186; 87205; 93005; 93010; 94640; 94660; 96365; 96375; 99291; 99292; J0696; J1650; J1815; J2920; J2930; J3370; J3475; J3490; J7030; J7040; J7060; J7512; J7620

== ENCOUNTER → 2017-11-06 | Outpatient (CLI) | payer MEDICARE ==
[2017-11-06 13:27] LABS: APPEARANCE,URINE CLEAR; BILIRUBIN,URINE NEGATIVE (NEGATIVE); COLOR,URINE YELLOW; GLUCOSE, URINE NEGATIVE (NEGATIVE); KETONES,URINE NEGATIVE (NEGATIVE); LEUKOCYTE ESTERASE,URINE NEGATIVE (NEGATIVE); NITRITE,URINE NEGATIVE (NEGATIVE); PROTEIN,URINE 100 mg/dL (NEGATIVE); URINE SPECIFIC GRAVITY 1.017; UROBILINOGEN,URINE NEGATIVE mg/dL (<2.0)
[2017-11-06 13:34] LABS: HEMOGLOBIN 13.9 g/dL (12.0-15.5); MEAN CORPUSCULAR HEMOGLOBIN 27.6 pg (27.0-33.4); MEAN CORPUSCULAR HGB CONC 33.1 g/dL (32.0-36.0); MEAN CORPUSCULAR VOLUME 84 fl (80-97); PLATELET COUNT 230 10^3/uL (150-450); RED BLOOD COUNT 5.03 10^6/uL (3.72-5.28); RED CELL DISTRIBUTION WIDTH 15.6 % (11.5-14.0); WHITE BLOOD COUNT 8.7 10^3/uL (4.0-10.5)
[2017-11-06 13:48] LABS: ANION GAP 13 (5-19); BLOOD UREA NITROGEN 16 mg/dL (7-20); CALCIUM 9.7 mg/dL (8.4-10.2); CARBON DIOXIDE 31 mmol/L (22-30); CHLORIDE 98 mmol/L (98-107); GLUCOSE 153 mg/dL (75-110); POTASSIUM 4.4 mmol/L (3.6-5.0); SODIUM 141.7 mmol/L (137-145)
[2017-11-06 13:52] LABS: UR PRO/CREAT RATIO RESULT 0.5 mg/mg (0.0-0.2); URINE CREATININE 99.1 mg/dL (15-278); URINE PROTEIN 49.2 mg/dL (<12)
== END ==
LOC: OD 11:59
PROVIDERS: ATTEND Internal Medicine Nephrology
DX: R80.9 Proteinuria, unspecified (principal); E11.9 Type 2 diabetes mellitus without complications; I12.9 Hypertensive chronic kidney disease with stage 1 through stage 4 chronic kidney disease, or unspecified chronic kidney disease; N18.9 Chronic kidney disease, unspecified; R60.9 Edema, unspecified
CPT/HCPCS: 36415; 80048; 81001; 82570; 83735; 84156; 85027

== ENCOUNTER → 2017-11-07 | Outpatient (CLI) | payer MEDICAID, MEDICARE ==
--- NOTE | 2017-11-07 17:35 | WOMENS IMAGING REPORT ---
EXAM DESCRIPTION: BILAT SCREENING MAMMO W/CAD COMPLETED DATE/TIME: 11/07/2017 8:47 am REASON FOR STUDY: SCREENING MAMMO Z12.31 ENCNTR SCREEN MAMMOGRAM FOR MALIGNANT NEOPLASM OF DANIEL COMPARISON: 2012 to 2016 TECHNIQUE: Standard craniocaudal and mediolateral oblique views of each breast recorded using digita l acquisition. LIMITATIONS: None. FINDINGS: No masses, calcifications or architectural distortion. No areas of suspicion. Read with the assistance of CAD. .[facility] - R2 Cenova Version 1.3 .[facility] - R2 Cenova Version 1.3 .[facility] - R2 Cenova Version 2.4 .[facility] [place] - R2 Cenova Version 2.4 .[facility] - R2 Package Reinspector Version 9.2 IMPRESSION: NORMAL MAMMOGRAM. BIRADS 1. BREAST DENSITY: b. There are scattered areas of fibroglandular density. BIRAD: 1 NEGATIVE RECOMMENDATION: ROUTINE SCREENING COMMENT: The patient has been notified of the results by letter per MQSA requirements. Additional no tification policies are in place for contacting patient with suspicious or incomplete findings. Quality ID #[id number]: The [employer] recommends an annual screening mammogram for women aged 40 years or over. This facility utilizes a reminder system to ensure that all patients receive reminder letters, and/or direct phone calls for appointments. This includes reminders for routine scr eening mammograms, diagnostic mammograms, or other Breast Imaging Interventions when appropriate. Th is patient will be placed in the appropriate reminder system. The [employer] (ACR) has developed recommendations for screening MRI of the breast s in certain patient populations, to be used in conjunction with mammography. Breast MRI surveillanc e may be appropriate for women with more than 20% lifetime risk of developing breast cancer as deter mined by genetic testing, significant family history of the disease, or history of mantle radiation f or Hodgkins Disease. ACR Practice Guidelines 2008. TECHNICAL DOCUMENTATION: FINDING NUMBER: (1) ASSESSMENT: (1) JOB ID: [id number] [employer]- All Rights Reserved Reading location - IP/workstation name: [email or web address]
== END ==
LOC: WI 08:14
PROVIDERS: ATTEND Family Medicine
DX: Z12.31 Encounter for screening mammogram for malignant neoplasm of breast (principal)
CPT/HCPCS: 77067

== ENCOUNTER 2018-01-14 16:54 | Emergency (ER) | payer MEDICARE, MEDICAID ==
[2018-01-14 17:47] LABS: ABSOLUTE BASOPHILS # (AUTO) 0.1 10^3/uL (0.0-0.2); ABSOLUTE EOSINOPHILS # (AUTO) 0.1 10^3/uL (0.0-0.6); ABSOLUTE LYMPHOCYTES (AUTO) 2.2 10^3/uL (0.5-4.7); ABSOLUTE MONOCYTES (AUTO) 0.8 10^3/uL (0.1-1.4); ABSOLUTE NEUT (AUTO) 9.2 10^3/uL (1.7-8.2); BASOPHILS % (AUTO) 0.7 % (0-2); HEMATOCRIT 45.1 % (36.0-47.0); HEMOGLOBIN 14.9 g/dL (12.0-15.5); LYMPHOCYTES % (AUTO) 17.9 % (13-45); MEAN CORPUSCULAR HEMOGLOBIN 27.4 pg (27.0-33.4); MEAN CORPUSCULAR HGB CONC 33.1 g/dL (32.0-36.0); MEAN CORPUSCULAR VOLUME 83 fl (80-97); MONOCYTES % (AUTO) 6.3 % (3-13); PLATELET COUNT 224 10^3/uL (150-450); RED BLOOD COUNT 5.45 10^6/uL (3.72-5.28); RED CELL DISTRIBUTION WIDTH 15.6 % (11.5-14.0); SEGMENTED NEUTROPHILS % (AUTO) 74.1 % (42-78); TOTAL CELLS COUNTED % (AUTO) 100 %; WHITE BLOOD COUNT 12.5 10^3/uL (4.0-10.5)
--- NOTE | 2018-01-14 17:59 | RADIOLOGY REPORT (SQ) ---
EXAM DESCRIPTION: CHEST SINGLE VIEW COMPLETED DATE/TIME: 01/14/2018 5:46 pm REASON FOR STUDY: bed 1 db COMPARISON: June 2017 EXAM PARAMETERS: NUMBER OF VIEWS: One view. TECHNIQUE: Single frontal radiographic view of the chest acquired. RADIATION DOSE: NA LIMITATIONS: None. FINDINGS: LUNGS AND PLEURA: The previously described chronic appearing changes appears stable. No a cute consolidations or pleural effusions are identified. MEDIASTINUM AND HILAR STRUCTURES: No masses. Contour normal. HEART AND VASCULAR STRUCTURES: The configuration of the heart and mediastinal structures is unchanged . Cardiac silhouette is at the upper limits of normal in size. There is mild pulmonary vascular con gestion. BONES: No acute findings. HARDWARE: None in the chest. OTHER: No other significant finding. IMPRESSION: No significant interval change. No acute findings. Other findings as noted above TECHNICAL DOCUMENTATION: JOB ID: [id number] [employer]- All Rights Reserved Reading location - IP/workstation name: [email or web address]
[2018-01-14] MEDS ORDERED: AZITHROMYCIN INJ 500 MG VIAL IV ONE (18:25)
[2018-01-14] MEDS ORDERED: ALBUTEROL SULFATE 0.083% NEB 2.5 MG/3 ML AMPUL NEB ONE (18:25)
[2018-01-14] MEDS ORDERED: METHYLPREDNISOLONE INJ 125 MG/2 ML SDV IV ONE (18:25)
--- NOTE | 2018-01-14 18:26 | ER Document Report ---
ED General - General Chief Complaint: Breathing Difficulty Stated Complaint: OXYGEN LEVEL IS LOW Time Seen by Provider: 01/14/18 17:43 Notes: 53-year-old female patient emergency department chief complaint of shortness of breath. Patient was seen by her wood inspector today. States that she left the office and was more short of breath. States that she is normally on 6 L of oxygen daily. Has some goup coming out of her left eye this week and slightly painful with some blurred vision in the left eye. Breathing is a little bit worse. States that every time she goes to her wood inspector stands up in the emergency department shortness of breath. Last time she was on antibiotics or steroids is in April. Denies any major chest pain. Denies any fever, chills, sweats or issues at this time TRAVEL OUTSIDE OF THE [place] IN LAST 30 DAYS: No - Related Data Allergies/Adverse Reactions: corn [[place]] Allergy (Severe, Verified 01/14/18 16:55) COLITIS Shellfish * [Shellfish] Allergy (Severe, Verified 01/14/18 16:55) COLITIS peanut Adverse Reaction (Verified 01/14/18 16:55) SEEDS Allergy (Intermediate, Uncoded 12/20/14 14:34) COLITIS LETTUCE Adverse Reaction (Severe, Uncoded 12/20/14 14:34) COLITIS Past Medical History - General Information source: Patient - Social History Smoking Status: Former Smoker Cigarette use (# per day): No Frequency of alcohol use: None Drug Abuse: None Lives with: Family Family History: COPD Patient has suicidal ideation: No Patient has homicidal ideation: No - Past Medical History Cardiac Medical History: Reports: Hx Hypercholesterolemia, Hx Hypertension Denies: Hx Coronary Artery Disease, Hx Heart Attack Pulmonary Medical History: Reports: Hx Asthma, Hx Bronchitis, Hx COPD - Hospitalized 06/15 w/persistent pulmonary failure, Hx Pneumonia - ARDS, Hx Intubation - 2 in the past adamantly refuses additional intubations, Hx Respiratory Failure, Hx Sleep Apnea Denies: Hx Tuberculosis Neurological Medical History: Reports: Hx Cerebrovascular Accident - "Mild" 02/19 Endocrine Medical History: Reports: Hx Diabetes Mellitus Type 1, Hx Diabetes Mellitus Type 2 Renal/ Medical History: Denies: Hx Peritoneal Dialysis GI Medical History: Reports: Hx Gastroesophageal Reflux Disease, Hx Hiatal Hernia Musculoskeltal Medical History: Reports Hx Arthritis - Gout Psychiatric Medical History: Denies: Hx Depression Past Surgical History: Reports: Hx Abdominal Surgery - ruptured bowel, colostomy , Hx Appendectomy, Hx Bowel Surgery, Hx Cholecystectomy, Hx Colostomy - ileostomy placed 05/15; subsequently closed., Hx Tubal Ligation. Denies: Hx Pacemaker - Immunizations Hx Diphtheria, Pertussis, Tetanus Vaccination: No Hx Pneumococcal Vaccination: 06/22/11 Review of Systems - Review of Systems Constitutional: No symptoms reported EENT: Eye pain, Eye discharge, Blurred vision Cardiovascular: No symptoms reported Respiratory: Cough, Short of breath, Wheezing Gastrointestinal: No symptoms reported Genitourinary: No symptoms reported Female Genitourinary: No symptoms reported Musculoskeletal: No symptoms reported Skin: No symptoms reported Hematologic/Lymphatic: No symptoms reported Neurological/Psychological: No symptoms reported Physical Exam - Vital signs Vitals: Temp Pulse Resp BP Pulse Ox 98.4 F 89 28 H 120/56 L 93 01/14/18 17:05 01/14/18 17:05 01/14/18 17:05 01/14/18 17:05 01/14/18 17:05 Interpretation: Normal - General General appearance: Appears well, Alert - HEENT Head: Normocephalic, Atraumatic Eyes: Other - Mild injection of the sclera on the left eye. Slightly prominent proptosis of the left eye. Pupils: PERRL - Respiratory Respiratory status: No respiratory distress Chest status: Nontender Breath sounds: Decreased air movement, Nonproductive cough, Rales, Wheezing Chest palpation: Normal - Cardiovascular Rhythm: Regular Heart sounds: Normal auscultation Murmur: No - Abdominal Inspection: Normal Distension: No distension Bowel sounds: Normal Tenderness: Nontender Organomegaly: No organomegaly - Back Back: Normal, Nontender - Extremities General upper extremity: Normal inspection, Nontender, Normal color, Normal ROM , Normal temperature General lower extremity: Normal inspection, Nontender, Normal color, Normal ROM , Normal temperature, Normal weight bearing. No: Kristel's sign - Neurological Neuro grossly intact: Yes Cognition: Normal Orientation: AAOx4 [place] Coma Scale Eye Opening: Spontaneous [place] Coma Scale Verbal: Oriented [place] Coma Scale Motor: Obeys Commands [place] Coma Scale Total: 15 Speech: Normal Motor strength normal: LUE, RUE, LLE, RLE Sensory: Normal - Psychological Associated symptoms: Normal affect, Normal mood - Skin Skin Temperature: Warm Skin Moisture: Dry Skin Color: Normal Course - Re-evaluation Re-evalutation: 01/14/18 18:44 She with long-standing history of COPD with exacerbation. Followed by pulmonology. Complaining of eye discomfort and irritation. At this time though we will treat as a COPD exacerbation. Will evaluate eye for increased pressures well. 01/14/18 18:45 Laboratory 01/14/18 01/14/18 01/14/18 17:25 17:25 17:25 WBC 12.5 H RBC 5.45 H Hgb 14.9 Hct 45.1 MCV 83 MCH 27.4 MCHC 33.1 RDW 15.6 H Plt Count 224 Seg Neutrophils % 74.1 Lymphocytes % 17.9 Monocytes % 6.3 Eosinophils % 1.0 Basophils % 0.7 Absolute Neutrophils 9.2 H Absolute Lymphocytes 2.2 Absolute Monocytes 0.8 Absolute Eosinophils 0.1 Absolute Basophils 0.1 Sodium Cancelled Potassium Cancelled Chloride Cancelled Carbon Dioxide Cancelled Anion Gap Cancelled BUN Cancelled Creatinine Cancelled Est GFR ( Amer) Cancelled Est GFR (Non-Af Amer) Cancelled Glucose Cancelled Calcium Cancelled Total Bilirubin Cancelled Direct Bilirubin Cancelled Neonat Total Bilirubin Cancelled Neonat Direct Bilirubin Cancelled Neonat Indirect Bili Cancelled AST Cancelled ALT Cancelled Alkaline Phosphatase Cancelled Creatine Kinase Cancelled CK-MB (CK-2) Cancelled Troponin I Cancelled Total Protein Cancelled Albumin Cancelled 01/14/18 01/14/18 17:58 17:58 WBC RBC Hgb Hct MCV MCH MCHC RDW Plt Count Seg Neutrophils % Lymphocytes % Monocytes % Eosinophils % Basophils % Absolute Neutrophils Absolute Lymphocytes Absolute Monocytes Absolute Eosinophils Absolute Basophils Sodium Cancelled Potassium Cancelled Chloride Cancelled Carbon Dioxide Cancelled Anion Gap Cancelled BUN Cancelled Creatinine Cancelled Est GFR ( Amer) Cancelled Est GFR (Non-Af Amer) Cancelled Glucose Cancelled Calcium Cancelled Total Bilirubin Cancelled Direct Bilirubin Cancelled Neonat Total Bilirubin Cancelled Neonat Direct Bilirubin Cancelled Neonat Indirect Bili Cancelled AST Cancelled ALT Cancelled Alkaline Phosphatase Cancelled Creatine Kinase Cancelled CK-MB (CK-2) Cancelled Troponin I Cancelled Total Protein Cancelled Albumin Cancelled Chest X-Ray 01/14/18 17:38 IMPRESSION: No significant interval change. No acute findings. Other findings as noted above 01/14/18 19:08 Patient had tetracaine applied to the left eye. Zeeshan-Pen was performed. Eye pressures were within normal range with the high side pressure of 17. 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 May have a mild infection versus . Patient has an eye doctor that she saw last week. I am advising that she follow -up with the eye doctor as well. Starting on steroids and antibiotics. Will give erythromycin ophthalmic ointment as well. 01/14/18 19:46 Patient states that her oxygen levels are at her baseline which are at 93% on 6 L of oxygen. Patient states that she is feeling a little bit better at this time. Has not been using any albuterol while at home. Has oxygen at home. CPAP at home. 01/14/18 20:04 Patient is basically at her baseline. Will have hospital medicine doctor visit with her. She may benefit from admission for q. 4 hour breathing treatments and BiPAP for a while. Patient does have brittle lung disease and followed by pulmonology. I will have medicine see her in go on their recommendations 01/14/18 20:20 01/14/18 20:33 has seen and evaluated patient. He does not feel patient needs to be admitted. Patient actually does not want to stay. Patient is sitting upright, eating on her oxygen in no acute distress. Will DC at this time. - Vital Signs Vital signs: Temp Pulse Resp BP Pulse Ox 98.4 F 89 15 106/78 91 L 01/14/18 17:05 01/14/18 17:05 01/14/18 19:18 01/14/18 19:18 01/14/18 19:18 - Laboratory Result Diagrams: 01/14/18 17:25 01/14/18 19:03 Laboratory results interpreted by me: 01/14/18 01/14/18 17:25 19:03 WBC 12.5 H RBC 5.45 H RDW 15.6 H Absolute Neutrophils 9.2 H Carbon Dioxide 31 H Calcium 10.3 H Alkaline Phosphatase 135 H Creatine Kinase 170 H - EKG Interpretation by Me EKG shows normal: Sinus rhythm, [place], Intervals, QRS Complexes, ST-T Waves Critical Care Note - Critical Care Note Total time excluding time spent on procedures (mins): 35 Comments: hypoxia, respiratory distress Discharge - Discharge Clinical Impression: COPD (chronic obstructive pulmonary disease) Qualifiers: COPD type: COPD with acute exacerbation Qualified Code(s): J44.1 - Chronic obstructive pulmonary disease with (acute) exacerbation Hordeolum externum left eye, unspecified eyelid Qualifiers: Eyelid: unspecified eyelid Qualified Code(s): H00.016 - Hordeolum externum left eye, unspecified eyelid Condition: Good Disposition: HOME, SELF-CARE Instructions: Eyedrop Use ([facility]), Chronic Obstructive Lung Disease ([facility]), Conjunctivitis ([facility]) Prescriptions: Albuterol Sulfate [Ventolin 0.083% Neb 2.5 mg/3 mL Ampul] 1 vial NEB Q4 10 Days #25 vial Azithromycin [Zithromax 250 mg Tablet] 250 mg PO DAILY 7 Days #7 tablet Erythromycin Base [Erythromycin Oph 1 Gm Oint Ud] 1 applic OS QID 7 Days #1 tube Nebulizer [Nebulizer Machine] 1 each MC ASDIR PRN #1 kit PRN Reason: Prednisone 60 mg PO DAILY 5 Days #15 tablet Referrals: BRONWYN ROSE MD [Primary Care Provider] - Follow up as needed
[2018-01-14] MEDS ORDERED: TETRACAINE HCL 0.5% OPH SOLN 2 ML OS ONE (18:41)
[2018-01-14 19:42] LABS: ALANINE AMINOTRANSFERASE 36 U/L (9-52); ALBUMIN 4.4 g/dL (3.5-5.0); ALKALINE PHOSPHATASE 135 U/L (38-126); ANION GAP 13 (5-19); ASPARTATE AMINO TRANSFERASE 22 U/L (14-36); BILIRUBIN,DIRECT 0.3 mg/dL (0.0-0.4); BILIRUBIN,TOTAL 0.6 mg/dL (0.2-1.3); BLOOD UREA NITROGEN 19 mg/dL (7-20); CALCIUM 10.3 mg/dL (8.4-10.2); CARBON DIOXIDE 31 mmol/L (22-30); CHLORIDE 101 mmol/L (98-107); CREATINE KINASE 170 U/L (30-135); GLUCOSE 94 mg/dL (75-110); POTASSIUM 4.3 mmol/L (3.6-5.0); SODIUM 144.7 mmol/L (137-145); TOTAL PROTEIN 7.5 g/dL (6.3-8.2)
[2018-01-14 19:58] LABS: CREATINE KINASE MB 3.65 ng/mL (<4.55)
[2018-01-14 19:59] LABS: TROPONIN I < 0.012 ng/mL
[2018-01-14] MEDS ORDERED: ERYTHROMYCIN 0.5% OPH OINT 1 GM UNIT DOSE OS ONE (20:39)
[2018-01-14 20:55] VITALS: BP 126/66
--- NOTE | 2018-01-14 21:13 | EKG REPORT ---
SEVERITY:- NORMAL ECG - SINUS RHYTHM : Confirmed by: Joselo Flores MD 14-Jan-2018 21:12:52
== END 2018-01-14 21:50 | disposition home or self-care (01) ==
LOC: ER 16:54 → UNDOADMIN 20:26 → EH 20:26 → ER 21:50
DX: J44.1 Chronic obstructive pulmonary disease with (acute) exacerbation (principal); H00.016 Hordeolum externum left eye, unspecified eyelid; E78.00 Pure hypercholesterolemia, unspecified; I10 Essential (primary) hypertension; Z86.73 Personal history of transient ischemic attack (TIA), and cerebral infarction without residual deficits; Z90.49 Acquired absence of other specified parts of digestive tract; Z98.51 Tubal ligation status; Z91.013 Allergy to seafood; Z99.81 Dependence on supplemental oxygen
CPT/HCPCS: 93005; 94640; 99291; 96375; 96365; 36415; 87040; 82553; 82962; 82550; 85025; 80053; 84484; 71045; 93010; J2930; J0456; A9270

== ENCOUNTER → 2018-06-10 | Outpatient (CLI) | payer MEDICARE, MEDICAID ==
[2018-06-10 12:15] LABS: HEMATOCRIT 41.7 % (36.0-47.0); HEMOGLOBIN 13.9 g/dL (12.0-15.5); MEAN CORPUSCULAR HEMOGLOBIN 28.4 pg (27.0-33.4); MEAN CORPUSCULAR HGB CONC 33.3 g/dL (32.0-36.0); MEAN CORPUSCULAR VOLUME 85 fl (80-97); PLATELET COUNT 217 10^3/uL (150-450); RED BLOOD COUNT 4.89 10^6/uL (3.72-5.28); RED CELL DISTRIBUTION WIDTH 15.6 % (11.5-14.0); WHITE BLOOD COUNT 8.4 10^3/uL (4.0-10.5)
[2018-06-10 12:39] LABS: APPEARANCE,URINE SLIGHTLY-CLOUDY; BILIRUBIN,URINE NEGATIVE (NEGATIVE); COLOR,URINE YELLOW; GLUCOSE, URINE NEGATIVE (NEGATIVE); KETONES,URINE NEGATIVE (NEGATIVE); LEUKOCYTE ESTERASE,URINE NEGATIVE (NEGATIVE); NITRITE,URINE NEGATIVE (NEGATIVE); PROTEIN,URINE 30 mg/dL (NEGATIVE); URINE SPECIFIC GRAVITY 1.013; UROBILINOGEN,URINE NEGATIVE mg/dL (<2.0)
[2018-06-10 12:45] LABS: ANION GAP 15 (5-19); BLOOD UREA NITROGEN 20 mg/dL (7-20); CALCIUM 9.8 mg/dL (8.4-10.2); CARBON DIOXIDE 27 mmol/L (22-30); CHLORIDE 100 mmol/L (98-107); GLUCOSE 161 mg/dL (75-110); POTASSIUM 4.9 mmol/L (3.6-5.0); SODIUM 141.8 mmol/L (137-145)
[2018-06-10 13:00] LABS: UR PRO/CREAT RATIO RESULT 0.5 mg/mg (0.0-0.2); URINE CREATININE 53.6 mg/dL (15-278); URINE PROTEIN 26.2 mg/dL (<12)
== END ==
LOC: OD 11:14
PROVIDERS: ATTEND Internal Medicine Nephrology
DX: R80.9 Proteinuria, unspecified (principal); E11.9 Type 2 diabetes mellitus without complications; I10 Essential (primary) hypertension; K76.0 Fatty (change of) liver, not elsewhere classified
CPT/HCPCS: 36415; 80048; 81001; 82570; 84156; 85027

== ENCOUNTER → 2018-06-23 | Outpatient (CLI) | payer MEDICAID, MEDICARE ==
--- NOTE | 2018-06-23 14:37 | RADIOLOGY REPORT (SQ) ---
EXAM DESCRIPTION: CT CHEST WITHOUT COMPLETED DATE/TIME: 06/23/2018 2:14 pm REASON FOR STUDY: J84.10 PULMONARY FIBROSIS, UNSPECIFIED J84.10 PULMONARY FIBROSIS, UNSPECIFIED COMPARISON: 05/01/2017, 05/07/2016, and 11/16/2015. TECHNIQUE: CT scan performed of the chest without intravenous contrast. Images reviewed with lung, soft tissue and bone windows. Reconstructed coronal and sagittal MPR images reviewed. All images st ored on PACS. All CT scanners at this facility use dose modulation, iterative reconstruction, and/or weight based d osing when appropriate to reduce radiation dose to as low as reasonably achievable (ALARA). [facility]: Dose Right [facility]: CareDose [facility]: Dose Right [facility]: Teradose 4D [facility]: Adzerk RADIATION DOSE: CT Rad equipment meets quality standard of care and radiation dose reduction techniq ues were employed. CTDIvol: 17.6 mGy. DLP: 685 mGy-cm. mGy. LIMITATIONS: No technical limitations. FINDINGS: LUNGS AND PLEURA: Chronic pulmonary fibrosis with diffuse interstitial prominence. 7 mm n odule in the right lung (axial series 4, image 65) is unchanged. This is located along the minor fis sure. No new nodules or masses. No pleural effusions or pleural calcifications. HILAR AND MEDIASTINAL STRUCTURES: Stable enlarged lymph nodes in the right paratracheal region and pr evascular space. No obvious aneurysm. HEART AND VASCULAR STRUCTURES: No aneurysm. No pericardial effusion. UPPER ABDOMEN: No significant findings. Limited exam. THYROID AND OTHER SOFT TISSUES: No masses. No adenopathy. BONES: No significant finding. HARDWARE: None in the chest. OTHER: No other significant findings. IMPRESSION: STABLE NONCONTRAST CT OF THE CHEST. CHRONIC PULMONARY FIBROSIS. 7 MM NODULE IN THE RIG HT LUNG UNCHANGED. MEDIASTINAL ADENOPATHY UNCHANGED. NO PROGRESSION. NO NEW LESIONS. TECHNICAL DOCUMENTATION: JOB ID: [id number] Quality ID # [id number]: Final reports with documentation of one or more dose reduction techniques (e.g., Au tomated exposure control, adjustment of the mA and/or kV according to patient size, use of iterative reconstruction technique) 2010 [employer]- All Rights Reserved Reading location - IP/workstation name: [email or web address]
== END ==
LOC: RAD 15:15
PROVIDERS: ATTEND Internal Medicine Pulmonary Disease
DX: J84.10 Pulmonary fibrosis, unspecified (principal); R91.1 Solitary pulmonary nodule
CPT/HCPCS: 71250

== ENCOUNTER 2018-10-10 11:14 | Inpatient (IN) | payer MEDICARE ==
[2018-10-10] MEDS ORDERED: IPRATROPIUM/ALBUTEROL 0.5-2.5 MG/3 ML AMPUL NEB ONE ×2 (11:35→11:36)
--- NOTE | 2018-10-10 11:53 | ER Document Report ---
ED Flu Like - General Chief Complaint: Flu Symptoms Stated Complaint: COUGH,CONGESTION,HEADACHE Time Seen by Provider: 10/10/18 11:32 Mode of Arrival: Carried Information source: Patient Notes: Patient is a 53-year-old female with a history of COPD on 6 L of oxygen at home daily who presents to the ER today for difficulty breathing. Patient presents at 68% on her 6 L of oxygen. Patient states that she has been feeling sick for 3 days, sinus type symptoms with a mild cough, no fevers. Patient states she does have CPAP at home. She denies any fever that she knows of. TRAVEL OUTSIDE OF THE [place] IN LAST 30 DAYS: No - Related Data Allergies/Adverse Reactions: corn [[place]] Allergy (Severe, Verified 10/10/18 11:17) COLITIS Shellfish * [Shellfish] Allergy (Severe, Verified 10/10/18 11:17) COLITIS peanut Adverse Reaction (Verified 10/10/18 11:17) SEEDS Allergy (Intermediate, Uncoded 10/10/18 11:17) COLITIS LETTUCE Adverse Reaction (Severe, Uncoded 10/10/18 11:17) COLITIS Past Medical History - General Information source: Patient - Social History Smoking Status: Former Smoker Family History: COPD - Past Medical History Cardiac Medical History: Reports: Hx Hypercholesterolemia, Hx Hypertension Denies: Hx Coronary Artery Disease, Hx Heart Attack Pulmonary Medical History: Reports: Hx Asthma, Hx Bronchitis, Hx COPD - Hospitalized 06/15 w/persistent pulmonary failure, Hx Pneumonia - ARDS, Hx Intubation - 2 in the past adamantly refuses additional intubations, Hx Respiratory Failure, Hx Sleep Apnea Denies: Hx Tuberculosis Neurological Medical History: Reports: Hx Cerebrovascular Accident - "Mild" 02/19/11 Endocrine Medical History: Reports: Hx Diabetes Mellitus Type 1, Hx Diabetes Mellitus Type 2 Renal/ Medical History: Denies: Hx Peritoneal Dialysis GI Medical History: Reports: Hx Gastroesophageal Reflux Disease, Hx Hiatal Hernia Musculoskeletal Medical History: Reports Hx Arthritis - Gout Psychiatric Medical History: Denies: Hx Depression Past Surgical History: Reports: Hx Abdominal Surgery - ruptured bowel, colostomy , Hx Appendectomy, Hx Bowel Surgery, Hx Cholecystectomy, Hx Colostomy - ileostomy placed 05/15; subsequently closed., Hx Tubal Ligation. Denies: Hx Pacemaker - Immunizations Hx Diphtheria, Pertussis, Tetanus Vaccination: No Hx Pneumococcal Vaccination: 06/22/11 Review of Systems - Review of Systems Constitutional: See HPI EENT: See HPI Cardiovascular: No symptoms reported Respiratory: See HPI Gastrointestinal: No symptoms reported Genitourinary: No symptoms reported Female Genitourinary: No symptoms reported Musculoskeletal: No symptoms reported Skin: No symptoms reported Hematologic/Lymphatic: No symptoms reported Neurological/Psychological: No symptoms reported Physical Exam - Vital signs Vitals: Pulse Ox 100 10/10/18 11:17 - Notes Notes: PHYSICAL EXAMINATION: GENERAL:respiratory distress HEAD: Atraumatic, normocephalic. EYES: Pupils equal round and reactive to light, extraocular movements intact, sclera anicteric, conjunctiva are normal. ENT: airway patent, ear canals without erythema or foreign body, TMs pearly [place] with good bony landmarks, nares with clear rhinorrhea, oropharynx clear without exudates. Moist mucous membranes. NECK: Normal range of motion, supple without lymphadenopathy LUNGS: on nasal cannula, limited airflow, no appreciable wheezes rales or rhonch i. HEART: Regular rate and rhythm without murmurs ABDOMEN: Soft, no tenderness. No guarding, no rebound EXTREMITIES: Normal range of motion, no pitting edema. No cyanosis. NEUROLOGICAL: Cranial nerves grossly intact. Normal sensory/motor exams. PSYCH: Normal mood, normal affect. SKIN: Warm, Dry, normal turgor, no rashes or lesions noted Course - Re-evaluation Re-evalutation: 10/10/18 14:29 Flu negative, chest x-ray reveals COPD with fluid accumulation, will start on 40 of Lasix per ABIMAEL Barragan who accepts admission at this time for acute on chronic respiratory failure. Pt doing well on bipap, vitals stabilized, pt feeling well. 10/11/18 07:21 - Vital Signs Vital signs: Temp Pulse Resp BP Pulse Ox 98.1 F 86 12 147/79 H 93 10/11/18 03:35 10/11/18 03:35 10/11/18 05:26 10/11/18 03:35 10/11/18 05:26 - Laboratory Result Diagrams: 10/10/18 11:47 10/10/18 11:47 Laboratory results interpreted by me: 10/10/18 10/10/18 11:47 11:47 RBC 5.97 H Hct 47.1 H MCV 79 L MCH 25.2 L MCHC 31.9 L RDW 16.8 H Carbon Dioxide 32 H Glucose 128 H Alkaline Phosphatase 148 H Critical Care Note - Critical Care Note Total time excluding time spent on procedures (mins): 35 - 35 minutes spent in critical care time with patient, consulted with attending, speaking with family, placing orders and evaluating tests and labs. Discharge - Discharge Clinical Impression: Acute and chronic respiratory failure Qualifiers: Respiratory failure complication: hypoxia Qualified Code(s): J96.21 - Acute and chronic respiratory failure with hypoxia Condition: Stable Disposition: ADMITTED INPATIENT Admitting Provider: Tate whitfield Unit Admitted: [facility]
[2018-10-10 12:09] LABS: ABSOLUTE EOSINOPHILS # (AUTO) 0.1 10^3/uL (0.0-0.6); ABSOLUTE LYMPHOCYTES (AUTO) 0.9 10^3/uL (0.5-4.7); ABSOLUTE MONOCYTES (AUTO) 0.8 10^3/uL (0.1-1.4); ABSOLUTE NEUT (AUTO) 4.7 10^3/uL (1.7-8.2); BASOPHILS % (AUTO) 0.5 % (0-2); HEMATOCRIT 47.1 % (36.0-47.0); LYMPHOCYTES % (AUTO) 14.1 % (13-45); MEAN CORPUSCULAR HEMOGLOBIN 25.2 pg (27.0-33.4); MEAN CORPUSCULAR HGB CONC 31.9 g/dL (32.0-36.0); MEAN CORPUSCULAR VOLUME 79 fl (80-97); MONOCYTES % (AUTO) 11.8 % (3-13); PLATELET COUNT 210 10^3/uL (150-450); RED BLOOD COUNT 5.97 10^6/uL (3.72-5.28); RED CELL DISTRIBUTION WIDTH 16.8 % (11.5-14.0); SEGMENTED NEUTROPHILS % (AUTO) 72.6 % (42-78); TOTAL CELLS COUNTED % (AUTO) 100 %; WHITE BLOOD COUNT 6.5 10^3/uL (4.0-10.5)
[2018-10-10 12:20] LABS: VENOUS BLOOD BASE EXCESS 3.2 mmol/L; VENOUS BLOOD HCO3 30.7 mmol/L (20-32); VENOUS BLOOD PCO2 58.3 mmHg (35-63); VENOUS BLOOD PH 7.34 (7.30-7.42)
[2018-10-10 12:40] LABS: ALANINE AMINOTRANSFERASE 26 U/L (9-52); ALBUMIN 4.2 g/dL (3.5-5.0); ALKALINE PHOSPHATASE 148 U/L (38-126); ANION GAP 7 (5-19); ASPARTATE AMINO TRANSFERASE 22 U/L (14-36); BILIRUBIN,DIRECT 0.1 mg/dL (0.0-0.4); BLOOD UREA NITROGEN 16 mg/dL (7-20); CALCIUM 9.8 mg/dL (8.4-10.2); CARBON DIOXIDE 32 mmol/L (22-30); CHLORIDE 99 mmol/L (98-107); CREATINE KINASE 78 U/L (30-135); GLUCOSE 128 mg/dL (75-110); POTASSIUM 4.7 mmol/L (3.6-5.0); SODIUM 138.1 mmol/L (137-145); TOTAL PROTEIN 7.7 g/dL (6.3-8.2)
[2018-10-10 12:52] LABS: CREATINE KINASE MB 2.42 ng/mL (<4.55)
[2018-10-10 12:54] LABS: TROPONIN I < 0.012 ng/mL
--- NOTE | 2018-10-10 13:34 | RADIOLOGY REPORT (SQ) ---
EXAM DESCRIPTION: CHEST SINGLE VIEW COMPLETED DATE/TIME: 10/10/2018 12:40 pm REASON FOR STUDY: sob COMPARISON: CT chest 06/23/2018 AP chest 01/14/2018, 06/10/2017, 06/20/2015 EXAM PARAMETERS: NUMBER OF VIEWS: One view. TECHNIQUE: Single frontal radiographic view of the chest acquired. RADIATION DOSE: NA LIMITATIONS: None. FINDINGS: LUNGS AND PLEURA: Upper lobes are hyperlucent from obstructive disease. Bronchovascular m arkings are crowded at the bases with few Dora lines worrisome for fluid overload or congestive cynthia lure superimposed on obstructive lung disease. No pleural effusions. No pneumothorax. MEDIASTINUM AND HILAR STRUCTURES: No masses. Contour normal. HEART AND VASCULAR STRUCTURES: Mild cardiomegaly BONES: No acute findings. HARDWARE: None in the chest. OTHER: No other significant finding. IMPRESSION: Obstructive lung disease with fluid overload or congestive failure TECHNICAL DOCUMENTATION: JOB ID: [id number] [employer]- All Rights Reserved Reading location - IP/workstation name: [email or web address]
[2018-10-10 14:13] LABS: A TYPE INFLUENZA AG NEGATIVE (NEGATIVE); B INFLUENZA AG NEGATIVE (NEGATIVE)
[2018-10-10] MEDS ORDERED: FUROSEMIDE INJ/PF 40 MG/4 ML SDV IV ONE ×3 (14:23→22:15)
[2018-10-10] MEDS ORDERED: ACETAMINOPHEN 325 MG TABLET PO PRN (17:04)
[2018-10-10] MEDS ORDERED: ONDANSETRON 4 MG TAB.RAPDIS PO PRN (17:04)
[2018-10-10] MEDS ORDERED: GLUCAGON,HUMAN RECOMB 1 MG INJ IM PRN (17:11)
[2018-10-10] MEDS ORDERED: DEXTROSE 50%-WATER 25 GM/50 ML DISP.SYRIN IV PRN ×2 (17:11)
[2018-10-10] MEDS ORDERED: DEXTROSE 40% GEL 15 GM TUBE PO PRN ×2 (17:11)
[2018-10-10] MEDS: METHYLPREDNISOLONE INJ 125 MG/2 ML SDV IV SCH (19:22)
--- NOTE | 2018-10-10 19:26 | PDOC H&P ---
History of Present Illness Admission Date/PCP: 10/10/18 14:30 CHICA GARCIA Patient complains of: Shortness of breath History of Present Illness: JACOB TOLBERT is a 53 year old female with a past medical history of pulmonary fibrosis and subsequent high O2 dependency. The patient presented to the emergency department via private vehicle with a chief complaint of respiratory distress. At home the patient is 6 L of oxygen dependent. Patient presented at 68% on her 6 L of oxygen but was alert and oriented only mildly tachypneic. Patient states that she has been feeling sick for 3 days, sinus type symptoms with a mild cough, no fevers. The patient was treated and released a couple of days prior without antibiotics. Patient states she does have CPAP at home. She denies any fever. The patient admits to a dry hacking cough but denies any sputum production. While in the emergency department the patient's chest x-ray was actually suggestive of pulmonary edema. Patient was given 40 of Lasix and was placed on BiPAP. And the patient was referred to the hospitalist for admission and management. The patient denies any known history of heart failure but on close review appears she does have a history of pulmonary hypertension. Past Medical History Cardiac Medical History: Reports: Hyperlipidema, Hypertension Pulmonary Medical History: Reports: Asthma, Bronchitis, Chronic Obstructive Pulmonary Disease (COPD) - Hospitalized 06/15 w/persistent pulmonary failure, Intubation - 2 in the past adamantly refuses additional intubations, Pneumonia - ARDS, Respiratory Failure, Sleep Apnea Endocrine Medical History: Reports: Diabetes Mellitus Type 1, Diabetes Mellitus Type 2 GI Medical History: Reports: Gastroesophageal Reflux Disease, Hiatal Hernia Musculoskeltal Medical History: Reports: Arthritis - Gout Past Surgical History Past Surgical History: Reports: Appendectomy, Cholecystectomy, Colostomy - ileostomy placed 05/15; subsequently closed., Tubal Ligation Denies: Pacemaker Social History Information Source: Patient Lives with: Family Smoking Status: Former Smoker Frequency of Alcohol Use: None Hx Recreational Drug Use: No Drugs: None Hx Prescription Drug Abuse: No - Advance Directive Resuscitation Status: Full Code Surrogate healthcare decision maker:: Javier Ervin Family History Family History: COPD Parental Family History Reviewed: Yes Children Family History Reviewed: Yes Sibling(s) Family History Reviewed.: Yes Medication/Allergy Home Medications: Albuterol Sulfate [Proair Hfa Inhalation Aerosol 8.5 gm Mdi] 2 puff IH BID 10/10/18 Cholestyramine/Aspartame [Prevalite Packet] 1 packet PO DAILY 10/10/18 Fluticasone/Salmeterol [Advair 500-50 Diskus 14 Dose/Diskus] 1 puff IH Q12 10/10/18 Insulin Detemir [Levemir] 40 unit SQ QHS 10/10/18 Liraglutide [Victoza 2-Ambrosio] 1.2 mg SQ QAM 10/10/18 Lisinopril/Hydrochlorothiazide [Lisinopril-Hctz 10-12.5 mg Tab] 1 each PO DAILY 10/10/18 Metformin HCl [Glucophage] 1,000 mg PO BID 10/10/18 Montelukast Sodium [Singulair 10 mg Tablet] 10 mg PO QHS 10/10/18 Pravastatin Sodium [Pravachol] 40 mg PO QHS 10/10/18 Umeclidinium [place] [Incruse Ellipta] 1 puff IH DAILY 10/10/18 Allergies/Adverse Reactions: corn [Daisetta] Allergy (Severe, Verified 10/10/18 11:17) COLITIS Shellfish * [Shellfish] Allergy (Severe, Verified 10/10/18 11:17) COLITIS peanut Adverse Reaction (Verified 10/10/18 11:17) SEEDS Allergy (Intermediate, Uncoded 10/10/18 11:17) COLITIS LETTUCE Adverse Reaction (Severe, Uncoded 10/10/18 11:17) COLITIS Review of Systems Constitutional: ABSENT: chills, fever(s), headache(s), weight gain, weight loss Eyes: ABSENT: visual disturbances Ears: ABSENT: hearing changes Cardiovascular: PRESENT: dyspnea on exertion, orthropnea. ABSENT: chest pain, edema, palpitations Respiratory: ABSENT: cough, hemoptysis Gastrointestinal: ABSENT: abdominal pain, constipation, diarrhea, hematemesis, hematochezia, nausea, vomiting Genitourinary: ABSENT: dysuria, hematuria Musculoskeletal: ABSENT: joint swelling Integumentary: ABSENT: rash, wounds Neurological: ABSENT: abnormal gait, abnormal speech, confusion, dizziness, focal weakness, syncope Psychiatric: ABSENT: anxiety, depression, homidical ideation, suicidal ideation Endocrine: ABSENT: cold intolerance, heat intolerance, polydipsia, polyuria Hematologic/Lymphatic: ABSENT: easy bleeding, easy bruising Physical Exam Vital Signs: Temp Pulse Resp BP Pulse Ox 98.1 F 96 14 150/71 H 91 L 10/10/18 17:01 10/10/18 11:21 10/10/18 19:00 10/10/18 18:31 10/10/18 19:00 Intake & Output 10/08/18 10/09/18 10/10/18 23:59 23:59 23:59 Weight 106.8 kg General appearance: PRESENT: no acute distress, well-developed, well-nourished Head exam: PRESENT: atraumatic, normocephalic Eye exam: PRESENT: conjunctiva pink, EOMI, PERRLA. ABSENT: scleral icterus Ear exam: PRESENT: normal external ear exam Mouth exam: PRESENT: moist, tongue midline Neck exam: ABSENT: carotid bruit, JVD, lymphadenopathy, thyromegaly Respiratory exam: PRESENT: decreased breath sounds, symmetrical, tachypnea. ABSENT: rales, rhonchi, unlabored, wheezes Cardiovascular exam: PRESENT: RRR. ABSENT: diastolic murmur, rubs, systolic murmur Pulses: PRESENT: normal dorsalis pedis pul Vascular exam: PRESENT: normal capillary refill GI/Abdominal exam: PRESENT: normal bowel sounds, soft. ABSENT: distended, guarding, mass, organolmegaly, rebound, tenderness Rectal exam: PRESENT: deferred Extremities exam: PRESENT: full ROM. ABSENT: calf tenderness, clubbing, pedal edema Neurological exam: PRESENT: alert, awake, oriented to person, oriented to place, oriented to time, oriented to situation, CN II-XII grossly intact. ABSENT: motor sensory deficit Psychiatric exam: PRESENT: appropriate affect, normal mood. ABSENT: homicidal ideation, suicidal ideation Skin exam: PRESENT: dry, intact, warm. ABSENT: cyanosis, rash Results Laboratory Results: 10/10/18 11:47 10/10/18 11:47 10/10/18 10/10/18 10/10/18 11:47 11:47 11:47 WBC 6.5 RBC 5.97 H Hgb 15.0 Hct 47.1 H MCV 79 L MCH 25.2 L MCHC 31.9 L RDW 16.8 H Plt Count 210 Seg Neutrophils % 72.6 Lymphocytes % 14.1 Monocytes % 11.8 Eosinophils % 1.0 Basophils % 0.5 Absolute Neutrophils 4.7 Absolute Lymphocytes 0.9 Absolute Monocytes 0.8 Absolute Eosinophils 0.1 Absolute Basophils 0.0 VBG pH 7.34 VBG pCO2 58.3 VBG HCO3 30.7 VBG Base Excess 3.2 Sodium 138.1 Potassium 4.7 Chloride 99 Carbon Dioxide 32 H Anion Gap 7 BUN 16 Creatinine 0.63 Est GFR ( Amer) > 60 Est GFR (Non-Af Amer) > 60 Glucose 128 H Lactic Acid Calcium 9.8 Total Bilirubin 1.0 AST 22 ALT 26 Alkaline Phosphatase 148 H Total Protein 7.7 Albumin 4.2 10/10/18 11:47 WBC RBC Hgb Hct MCV MCH MCHC RDW Plt Count Seg Neutrophils % Lymphocytes % Monocytes % Eosinophils % Basophils % Absolute Neutrophils Absolute Lymphocytes Absolute Monocytes Absolute Eosinophils Absolute Basophils VBG pH VBG pCO2 VBG HCO3 VBG Base Excess Sodium Potassium Chloride Carbon Dioxide Anion Gap BUN Creatinine Est GFR ( Amer) Est GFR (Non-Af Amer) Glucose Lactic Acid 0.9 Calcium Total Bilirubin AST ALT Alkaline Phosphatase Total Protein Albumin 10/10/18 10/10/18 11:47 11:47 Creatine Kinase 78 CK-MB (CK-2) 2.42 Troponin I < 0.012 Impressions: Chest X-Ray 10/10/18 11:33 IMPRESSION: Obstructive lung disease with fluid overload or congestive failure Assessment & Plan - Diagnosis (1) Acute on chronic respiratory failure with hypoxemia Is this a current diagnosis for this admission?: Yes Plan: Unfortunately given the patient has underlying fibrosis is not going to be very responsive to steroids. May be more of a component of actual heart failure. Will obtain a echocardiogram as the patient did respond pretty well to diuresis. In the interim we will continue BiPAP (2) Pulmonary fibrosis Is this a current diagnosis for this admission?: Yes Plan: The patient has been referred to a specialist at [place]. (3) Moderate to severe pulmonary hypertension Is this a current diagnosis for this admission?: Yes Plan: May likely be the source of #1 (4) Diabetes mellitus type 2 in obese Is this a current diagnosis for this admission?: Yes Plan: We will continue her medication as well as sliding scale coverage (5) GERD (gastroesophageal reflux disease) Qualifiers: Esophagitis presence: without esophagitis Qualified Code(s): K21.9 - Gastro-esophageal reflux disease without esophagitis Is this a current diagnosis for this admission?: Yes Plan: We will continue PPI therapy (6) HANNAH (obstructive sleep apnea) Is this a current diagnosis for this admission?: Yes Plan: Continue BiPAP (7) HLD (hyperlipidemia) Qualifiers: Hyperlipidemia type: pure hypercholesterolemia Qualified Code(s): E78.00 - Pure hypercholesterolemia, unspecified; E78.0 - Pure hypercholesterolemia Is this a current diagnosis for this admission?: Yes Plan: Will continue home medications. (8) HTN (hypertension) Qualifiers: Hypertension type: essential hypertension Qualified Code(s): I10 - Essential (primary) hypertension Is this a current diagnosis for this admission?: Yes Plan: Will continue home medications. (9) OAB (overactive bladder) Is this a current diagnosis for this admission?: Yes Plan: Will continue home medications. (10) History of lymphoma Is this a current diagnosis for this admission?: Yes (11) Full code status Is this a current diagnosis for this admission?: Yes (12) Morbid obesity Is this a current diagnosis for this admission?: Yes - Time Time Spent: 50 to 70 Minutes Medications reviewed and adjusted accordingly: Yes Anticipated discharge: Home Within: within 72 hours Disposition: The patient is a full code. Pending patient's symptomatology and diagnostic findings will reevaluate in the a.m. - Inpatient Certification Based on my medical assessment, after consideration of the patient's comorbidities, presenting symptoms, or acuity I expect that the services needed warrant INPATIENT care.: Yes I certify that my determination is in accordance with my understanding of Medicare's requirements for reasonable and necessary INPATIENT services [42 CFR 412.3e].: Yes Medical Necessity: Failure to Improve With Outpatient Therapy, Need For IV Fluids, Need For Continuous Telemetry Monitoring, Risk of Complication if Not Cared For in Hospital Post Hospital Care: D/C [employer] Person Documentation
--- NOTE | 2018-10-10 20:51 | EKG REPORT ---
SEVERITY:- NORMAL ECG - SINUS RHYTHM : Confirmed by: Juli Ozuna MD 10-Oct-2018 20:50:33
[2018-10-10] MEDS ORDERED: (PENDING PHARMACY ID) (Pravastatin Sodium [Pravachol] 40 MG) PO SCH (22:00)
[2018-10-10] MEDS ORDERED: INSULIN DETEMIR 40 UNIT SQ SCH (22:00)
[2018-10-10] MEDS ORDERED: (PENDING PHARMACY ID) (Fluticasone/Salmeterol 1 PUFF) IH SCH (22:00)
[2018-10-10] MEDS ORDERED: METHYLPREDNISOLONE INJ 40 MG/1 ML SDV IV SCH (22:00)
[2018-10-10] MEDS: HEPARIN SOD (PORCINE) 5,000 UNIT/ML 1 ML SYRINGE SUBCUT SCH (22:16)
[2018-10-10] MEDS: INSULIN LISPRO 100 UNIT/ML 3 ML VIAL SUBCUT SCH (22:17)
[2018-10-10] MEDS: INSULIN DETEMIR 100 UNIT/ML 3 ML PEN SUBCUT SCH (22:18)
[2018-10-10] MEDS: ATORVASTATIN CALCIUM 10 MG TABLET PO SCH (22:19)
[2018-10-10] MEDS: MONTELUKAST SODIUM 10 MG TABLET PO SCH (22:20)
[2018-10-11] MEDS: ALBUTEROL SULFATE 0.083% NEB 2.5 MG/3 ML AMPUL NEB PRN ×4 (02:30→21:17)
[2018-10-11] MEDS: HEPARIN SOD (PORCINE) 5,000 UNIT/ML 1 ML SYRINGE SUBCUT SCH ×3 (06:34→21:11)
[2018-10-11] MEDS: METHYLPREDNISOLONE INJ 125 MG/2 ML SDV IV SCH ×3 (06:34→21:10)
[2018-10-11 08:15] LABS: ANION GAP 11 (5-19); BLOOD UREA NITROGEN 18 mg/dL (7-20); CARBON DIOXIDE 33 mmol/L (22-30); CHLORIDE 94 mmol/L (98-107); GLUCOSE 220 mg/dL (75-110); SODIUM 137.6 mmol/L (137-145)
[2018-10-11] MEDS ORDERED: (PENDING PHARMACY ID) (Umeclidinium Bromide [Incruse Ellipta] 1 PUFF) IH SCH (10:00)
[2018-10-11] MEDS: METFORMIN HCL 500 MG TABLET PO SCH ×2 (10:35→17:44)
[2018-10-11] MEDS: FLUTICASONE/VILANTEROL 200-25 MCG/DOSE IH SCH (10:36)
[2018-10-11] MEDS: INSULIN LISPRO 100 UNIT/ML 3 ML VIAL SUBCUT SCH ×4 (10:44→21:11)
--- NOTE | 2018-10-11 13:39 | RADIOLOGY REPORT (SQ) ---
EXAM DESCRIPTION: CHEST SINGLE VIEW COMPLETED DATE/TIME: 10/11/2018 9:54 am REASON FOR STUDY: Follow-up diureses COMPARISON: 10/10/2018 NUMBER OF VIEWS: One view. TECHNIQUE: Single frontal radiographic image of the chest acquired. LIMITATIONS: None. FINDINGS: LUNGS AND PLEURA: Chronic interstitial changes with more confluent parenchymal density in the lung bases not significantly changed. No large effusions. MEDIASTINUM AND HEART: Stable heart size and mediastinal structures. BONY STRUCTURES: No acute findings. HARDWARE: None. OTHER: No other significant finding. IMPRESSION: Chronic interstitial lung disease. No significant change. No infiltrate. TECHNICAL DOCUMENTATION: JOB ID: [id number] Reading location - IP/workstation name: [email or web address]
[2018-10-11] MEDS: MAGNESIUM SULFATE/D5W 1 GM/100 ML RTUPB IV SCH ×2 (14:20→16:08)
[2018-10-11] MEDS ORDERED: BENZONATATE 100 MG CAPSULE PO PRN (15:11)
--- NOTE | 2018-10-11 15:23 | PDOC PROGRESS REPORT ---
Subjective Progress Note for:: 10/11/18 Subjective:: The patient was seen earlier today on rounds. I actually heard the patient from the hallway berating staff and yelling at the kitchen staff over the telephone. The patient also inappropriately yelled at the tray staff that brought her lunch. The patient apparently wants food her way. Patient was unable to articulate exactly what way this was but wants her own food. Patient has threatened to leave AGAINST MEDICAL ADVICE. Upon my evaluation of the patient I found her to be at baseline. Patient had taken her BiPAP off to eat and was on nasal cannula. Oxygen saturations were in the high 70s low 80s but given how well the patient was functioning obviously this is chronic. Patient has clubbed fingers and cyanotic mucous membranes. The patient told me that I should make myself useful and go get 2 years worth of her of medical records for her so she can send them to a specialist at [facility]. The patient denies improving symptoms overnight however the patient did not have this much air to yell and scream yesterday. Patient had profound conversational dyspnea yesterday however today she appears much improved. It appears the patient improve the most with diuresis. The patient denies any nausea, vomiting, diarrhea, dizziness, chest pain, heart palpitations, fevers, or chills. The patient has remained afebrile. Blood pressures have been in a good range. Review of systems: The rest of the review of systems is negative. Reason For Visit: COPD EXACERBATION Physical Exam Vital Signs: Temp Pulse Resp BP Pulse Ox 97.9 F 84 16 158/83 H 93 10/11/18 12:20 10/11/18 14:22 10/11/18 14:22 10/11/18 12:20 10/11/18 14:22 Intake & Output 10/09/18 10/10/18 10/11/18 23:59 23:59 23:59 Intake Total 670 Balance 670 Weight 106.8 kg 105.6 kg On examination the patient is awake, alert, oriented, to person, place, time, and situation. The patient is verbal, conversational, ambulatory. Does not appear to be in any acute distress. Skin is warm and dry, no rash, not diaphoretic. HEENT: no JVD. Pupils are reactive. CVS: Heart is regular, is no murmur or rub. Chest: Is profoundly diminished to auscultation. Abdomen: Is soft, bowel sounds present. Extremities: There is no edema. Clubbing is noted. Psychiatric: Agitated affect. Neurological: Intact. Results Laboratory Results: 10/10/18 11:47 10/11/18 07:23 10/10/18 10/11/18 11:47 07:23 Sodium 137.6 Potassium 5.0 Chloride 94 L Carbon Dioxide 33 H Anion Gap 11 BUN 18 Creatinine 0.60 Est GFR ( Amer) > 60 Est GFR (Non-Af Amer) > 60 Glucose 220 H Calcium 10.0 Magnesium 1.7 1.8 10/10/18 10/10/18 10/11/18 11:47 11:47 07:23 Creatine Kinase 78 CK-MB (CK-2) 2.42 Troponin I < 0.012 NT-Pro-B Natriuret Pep 145 Impressions: Chest X-Ray 10/11/18 06:00 IMPRESSION: Chronic interstitial lung disease. No significant change. No infiltrate. Assessment & Plan - Diagnosis (1) Acute on chronic respiratory failure with hypoxemia Is this a current diagnosis for this admission?: Yes Plan: Unfortunately given the patient has underlying fibrosis is not going to be very responsive to steroids. May be more of a component of actual heart failure. Awaiting an echocardiogram as the patient did respond pretty well to diuresis x2. In the interim we will continue BiPAP (2) Diabetes mellitus type 2 in obese Is this a current diagnosis for this admission?: Yes Plan: Continue her medication as well as sliding scale coverage (3) Pulmonary fibrosis Is this a current diagnosis for this admission?: Yes Plan: The patient has been referred to a specialist at [facility]. (4) GERD (gastroesophageal reflux disease) Qualifiers: Esophagitis presence: without esophagitis Qualified Code(s): K21.9 - Gastro-esophageal reflux disease without esophagitis Is this a current diagnosis for this admission?: Yes Plan: Continue PPI therapy (5) Moderate to severe pulmonary hypertension Is this a current diagnosis for this admission?: Yes Plan: May likely be the source of #1 (6) HANNAH (obstructive sleep apnea) Is this a current diagnosis for this admission?: Yes Plan: Continue CPAP (7) Morbid obesity Is this a current diagnosis for this admission?: Yes (8) HLD (hyperlipidemia) Qualifiers: Hyperlipidemia type: pure hypercholesterolemia Qualified Code(s): E78.00 - Pure hypercholesterolemia, unspecified; E78.0 - Pure hypercholesterolemia Is this a current diagnosis for this admission?: Yes (9) HTN (hypertension) Qualifiers: Hypertension type: essential hypertension Qualified Code(s): I10 - Essential (primary) hypertension Is this a current diagnosis for this admission?: Yes (10) OAB (overactive bladder) Is this a current diagnosis for this admission?: Yes (11) History of lymphoma Is this a current diagnosis for this admission?: Yes (12) Full code status Is this a current diagnosis for this admission?: Yes - Time Time Spent with patient: 25-34 minutes Medications reviewed and adjusted accordingly: Yes Anticipated discharge: Home Within: within 48 hours Disposition: The patient is a full code. Pending patient's symptomatology and diagnostic findings will reevaluate in the a.m.
[2018-10-11] MEDS: ATORVASTATIN CALCIUM 10 MG TABLET PO SCH (21:09)
[2018-10-11] MEDS: MONTELUKAST SODIUM 10 MG TABLET PO SCH (21:09)
[2018-10-11] MEDS: FLUTICASONE NASAL SPRAY 50 MCG/SPRY 120 SPRAY/16 GM NASL SCH (21:10)
[2018-10-11] MEDS: INSULIN DETEMIR 100 UNIT/ML 3 ML PEN SUBCUT SCH (21:12)
[2018-10-12] MEDS: METHYLPREDNISOLONE INJ 125 MG/2 ML SDV IV SCH ×3 (05:31→21:26)
[2018-10-12] MEDS: HEPARIN SOD (PORCINE) 5,000 UNIT/ML 1 ML SYRINGE SUBCUT SCH ×3 (05:31→21:26)
[2018-10-12] MEDS: INSULIN LISPRO 100 UNIT/ML 3 ML VIAL SUBCUT SCH ×4 (08:19→21:26)
[2018-10-12] MEDS: METFORMIN HCL 500 MG TABLET PO SCH ×2 (09:41→17:09)
[2018-10-12] MEDS: FLUTICASONE NASAL SPRAY 50 MCG/SPRY 120 SPRAY/16 GM NASL SCH ×2 (09:41→21:26)
[2018-10-12] MEDS: FLUTICASONE/VILANTEROL 200-25 MCG/DOSE IH SCH (09:41)
--- NOTE | 2018-10-12 17:32 | PDOC PROGRESS REPORT ---
Subjective Progress Note for:: 10/12/18 Subjective:: The patient was seen earlier today on rounds. The patient does admit feeling slightly better than she did yesterday. The patient has diuresed well. The patient denies any nausea, vomiting, diarrhea, dizziness, chest pain, heart palpitations, fevers, or chills. The patient has remained afebrile. Blood pressures have been in a good range. When prompted the patient voices no other concerns at this time. The patient's mood has improved tremendously since been changed to a regular diet. Brief history: The patient is a 53-year-old female with unfortunate pulmonary fibrosis that has had numerous admissions. Rest of breath. She was oxygenating 68% on room air and was talking and alert and oriented. Patient obviously has chronic hypoxia she has clubbed fingers cyanotic mucous membranes and so forth. However the patient's breathing and oxygenation did improve with diuresis. Echocardiogram has been obtained however this is pending. The patient did receive a total of 3 separate doses of Lasix Reason For Visit: COPD EXACERBATION Physical Exam Vital Signs: Temp Pulse Resp BP Pulse Ox 97.3 F 72 31 H 134/67 H 97 10/12/18 16:10 10/12/18 16:10 10/12/18 16:10 10/12/18 16:10 10/12/18 16:10 Intake & Output 10/10/18 10/11/18 10/13/18 23:59 23:59 00:59 Intake Total 1462 236 Output Total 700 2537 Balance 762 -2301 Weight 106.8 kg 105.6 kg 104.3 kg On examination the patient is awake, alert, oriented, to person, place, time, and situation. The patient is verbal, conversational, ambulatory. Does not appear to be in any acute distress. Skin is warm and dry, no rash, not diaphoretic. HEENT: no JVD. Pupils are reactive. CVS: Heart is regular, is no murmur or rub. Chest: Is profoundly diminished to auscultation. Abdomen: Is soft, bowel sounds present. Extremities: There is no edema. Clubbing is noted. Psychiatric: Agitated affect. Neurological: Intact. Results Laboratory Results: 10/10/18 11:47 10/11/18 07:23 10/10/18 10/10/18 10/11/18 11:47 11:47 07:23 Creatine Kinase 78 CK-MB (CK-2) 2.42 Troponin I < 0.012 NT-Pro-B Natriuret Pep 145 Impressions: Chest X-Ray 10/11/18 06:00 IMPRESSION: Chronic interstitial lung disease. No significant change. No infiltrate. Assessment & Plan - Diagnosis (1) Acute on chronic respiratory failure with hypoxemia Is this a current diagnosis for this admission?: Yes Plan: Unfortunately given the patient has underlying fibrosis is not going to be very responsive to steroids. May be more of a component of actual heart failure. Echocardiogram is pending as the patient did respond pretty well to diuresis. In the interim we will continue BiPAP. The patient does have a BiPAP at home. (2) Pulmonary fibrosis Is this a current diagnosis for this admission?: Yes Plan: The patient has been referred to a specialist at [place]. (3) Moderate to severe pulmonary hypertension Is this a current diagnosis for this admission?: Yes Plan: May likely be the source of #1 (4) Diabetes mellitus type 2 in obese Is this a current diagnosis for this admission?: Yes Plan: Continue her medication as well as sliding scale coverage (5) GERD (gastroesophageal reflux disease) Qualifiers: Esophagitis presence: without esophagitis Qualified Code(s): K21.9 - Gastro-esophageal reflux disease without esophagitis Is this a current diagnosis for this admission?: Yes Plan: Continue PPI therapy (6) HANNAH (obstructive sleep apnea) Is this a current diagnosis for this admission?: Yes Plan: Continue BiPAP (7) HLD (hyperlipidemia) Qualifiers: Hyperlipidemia type: pure hypercholesterolemia Qualified Code(s): E78.00 - Pure hypercholesterolemia, unspecified; E78.0 - Pure hypercholesterolemia Is this a current diagnosis for this admission?: Yes Plan: Will continue home medications. (8) HTN (hypertension) Qualifiers: Hypertension type: essential hypertension Qualified Code(s): I10 - Essential (primary) hypertension Is this a current diagnosis for this admission?: Yes Plan: Will continue home medications. (9) OAB (overactive bladder) Is this a current diagnosis for this admission?: Yes Plan: Will continue home medications. (10) History of lymphoma Is this a current diagnosis for this admission?: Yes (11) Morbid obesity Is this a current diagnosis for this admission?: Yes (12) Full code status Is this a current diagnosis for this admission?: Yes - Time Time Spent with patient: 25-34 minutes Medications reviewed and adjusted accordingly: Yes Anticipated discharge: Home Within: within 24 hours
[2018-10-12] MEDS: MONTELUKAST SODIUM 10 MG TABLET PO SCH (21:25)
[2018-10-12] MEDS: ATORVASTATIN CALCIUM 10 MG TABLET PO SCH (21:25)
[2018-10-12] MEDS: INSULIN DETEMIR 100 UNIT/ML 3 ML PEN SUBCUT SCH (21:27)
[2018-10-13 05:05] LABS: ARTERIAL BLOOD BASE EXCESS 5.9 mmol/L; ARTERIAL BLOOD H2CO3 1.85 mmol/L (1.05-1.35); ARTERIAL BLOOD HCO3 33.7 mmol/L (20-24); ARTERIAL BLOOD O2 SATURATION 95.2 % (94-98); ARTERIAL BLOOD PCO2 61.3 mmHg (35-45); ARTERIAL BLOOD PH 7.36 (7.35-7.45); ARTERIAL BLOOD PO2 80.9 mmHg (80-100); ARTERIAL BLOOD TOTAL CO2 35.6 mmol/L (21-25)
[2018-10-13 05:08] LABS: ARTERIAL BLOOD FIO2 70%
[2018-10-13] MEDS: METHYLPREDNISOLONE INJ 125 MG/2 ML SDV IV SCH (05:26)
[2018-10-13] MEDS: HEPARIN SOD (PORCINE) 5,000 UNIT/ML 1 ML SYRINGE SUBCUT SCH ×3 (06:24→21:42)
[2018-10-13 06:28] LABS: ALANINE AMINOTRANSFERASE 28 U/L (9-52); ALBUMIN 3.9 g/dL (3.5-5.0); ALKALINE PHOSPHATASE 114 U/L (38-126); ANION GAP 9 (5-19); ASPARTATE AMINO TRANSFERASE 12 U/L (14-36); BILIRUBIN,DIRECT 0.1 mg/dL (0.0-0.4); BILIRUBIN,TOTAL 0.9 mg/dL (0.2-1.3); BLOOD UREA NITROGEN 29 mg/dL (7-20); CALCIUM 9.9 mg/dL (8.4-10.2); CARBON DIOXIDE 31 mmol/L (22-30); CHLORIDE 97 mmol/L (98-107); GLUCOSE 216 mg/dL (75-110); POTASSIUM 5.3 mmol/L (3.6-5.0); SODIUM 136.6 mmol/L (137-145); TOTAL PROTEIN 6.8 g/dL (6.3-8.2)
[2018-10-13] MEDS: INSULIN LISPRO 100 UNIT/ML 3 ML VIAL SUBCUT SCH ×4 (08:08→21:43)
[2018-10-13] MEDS: FLUTICASONE NASAL SPRAY 50 MCG/SPRY 120 SPRAY/16 GM NASL SCH ×2 (09:04→21:43)
[2018-10-13] MEDS: METFORMIN HCL 500 MG TABLET PO SCH ×2 (09:04→17:27)
[2018-10-13] MEDS: FLUTICASONE/VILANTEROL 200-25 MCG/DOSE IH SCH (09:04)
--- NOTE | 2018-10-13 13:56 | PDOC PROGRESS REPORT ---
Subjective Progress Note for:: 10/13/18 Subjective:: This is a 53 yr old female with chronic respiratory failure from pulmonary fibrosis on 6 lpm of home O2, HTN, DM 2, COPD and HANNAH recently placed on BIPAP at home who presented with increasing SOB and severe hypoxia. She was thought to have pulmonary edema upon admission and was started on Lasix hence echo was also ordered. Assumed care today. No acute event overnight. She says she is close to her baseline respiratory status. She says she is very limited by her SOb at home. She says on her best days, she gets short of breath walking from her bedroom to the kitchen. She says she is not able to shower herself because of the SOB. She has an appt with [facility] on 10/28/18 for lung transplant evaluation. She says on her best days, her O2 sats at home goes down to 82% form time to time. She denies chest pain. She has had multiple readmissions frpom her pulmonary fibrosis and hypoxia. She is amenable to go to rehab/SNF. Reason For Visit: COPD EXACERBATION Physical Exam Vital Signs: Temp Pulse Resp BP Pulse Ox 97.4 F 66 16 148/79 H 94 10/13/18 11:50 10/13/18 11:50 10/13/18 12:24 10/13/18 11:50 10/13/18 12:24 Intake & Output 10/12/18 10/13/18 10/14/18 06:59 06:59 06:59 Intake Total 1427 474 Output Total 3450 700 Balance Weight 229 lb 15.074 oz General appearance: PRESENT: no acute distress, well-developed, well-nourished Eye exam: PRESENT: conjunctiva pink, EOMI, PERRLA. ABSENT: scleral icterus Ear exam: PRESENT: normal external ear exam Mouth exam: PRESENT: moist, tongue midline Neck exam: ABSENT: carotid bruit, JVD, lymphadenopathy, thyromegaly Respiratory exam: PRESENT: rales. ABSENT: rhonchi, wheezes Cardiovascular exam: PRESENT: RRR. ABSENT: diastolic murmur, rubs, systolic murmur Pulses: PRESENT: normal dorsalis pedis pul GI/Abdominal exam: PRESENT: normal bowel sounds, soft. ABSENT: distended, guarding, mass, organolmegaly, rebound, tenderness Rectal exam: PRESENT: deferred Neurological exam: PRESENT: alert, awake, oriented to person, oriented to place, oriented to time, oriented to situation, CN II-XII grossly intact. ABSENT: motor sensory deficit Results Laboratory Results: 10/10/18 11:47 10/13/18 05:48 10/13/18 10/13/18 04:55 05:48 Carbonic Acid 1.85 H HCO3/H2CO3 Ratio 18:1 ABG pH 7.36 ABG pCO2 61.3 H ABG pO2 80.9 ABG HCO3 33.7 H ABG O2 Saturation 95.2 ABG Base Excess 5.9 FiO2 70% Sodium 136.6 L Potassium 5.3 H Chloride 97 L Carbon Dioxide 31 H Anion Gap 9 BUN 29 H Creatinine 0.53 Est GFR ( Amer) > 60 Est GFR (Non-Af Amer) > 60 Glucose 216 H Calcium 9.9 Magnesium 1.8 Total Bilirubin 0.9 AST 12 L ALT 28 Alkaline Phosphatase 114 Total Protein 6.8 Albumin 3.9 10/10/18 10/10/18 10/11/18 11:47 11:47 07:23 Creatine Kinase 78 CK-MB (CK-2) 2.42 Troponin I < 0.012 NT-Pro-B Natriuret Pep 145 Impressions: Chest X-Ray 10/11/18 06:00 IMPRESSION: Chronic interstitial lung disease. No significant change. No infiltrate. Assessment & Plan - Diagnosis (1) Acute on chronic respiratory failure with hypoxemia Is this a current diagnosis for this admission?: Yes Plan: Currently on BIPAP. Will attempt weaning down to home O2 requirement but she needs to be on BIPAP at night and while at sleep during the day. (2) Pulmonary fibrosis Is this a current diagnosis for this admission?: Yes Plan: She is scheduled for an appt for evaluation for lung transplantation at [facility] on 10/28. Decrease steroids from 80 mg q8 to 40 mg q12. (3) Hyperkalemia Is this a current diagnosis for this admission?: Yes Plan: Renal function is normal. Repeat BMP today. - Time Time Spent with patient: 25-34 minutes
[2018-10-13 17:13] LABS: ANION GAP 6 (5-19); BLOOD UREA NITROGEN 27 mg/dL (7-20); CALCIUM 9.8 mg/dL (8.4-10.2); CARBON DIOXIDE 36 mmol/L (22-30); CHLORIDE 92 mmol/L (98-107); GLUCOSE 243 mg/dL (75-110); POTASSIUM 5.1 mmol/L (3.6-5.0); SODIUM 134.3 mmol/L (137-145)
--- NOTE | 2018-10-13 20:29 | XCELERA REPORT ---
[address] [address] Transthoracic Echocardiogram Report Name: JACOB TOLBERT Age: 53 yrs Gender: Female : 1965 Patient Status: Inpatient Patient Location: [facility]^A Study Date: 10/11/2018 06:21 PM Height: 64 in Weight: 235 lb BSA: 2.1 m2 Procedure: A two-dimensional transthoracic echocardiogram with color flow and Doppler was performed. The study was technically limited with all images being suboptimal in quality. Reason For Study: Pulmonary edema History: Pulmonary edema. Ordering Physician: ARUNA ARELLANO Performed By: Luly Redding Interpretation Summary The left ventricle is normal in size. There is normal left ventricular wall thickness. The left ventricular ejection fraction is within normal limits. LV EF is > than 60% Doppler measurements suggest normal left ventricular diastolic function The left ventricular wall motion is normal. There is no thrombus. The right ventricle is not well visualized secondary to technical limitations Probably mildly dilated RV with normal systolic function. There is no evidence of mitral valve prolapse. There is no vegetation seen on the mitral valve. There is no mitral valve stenosis. There is no aortic valvular vegetation. There is mild aortic stenosis There is a peak gradient of 22 mm of Hg. No hemodynamically significant valvular aortic stenosis. There is no LVOT obstruction. No aortic regurgitation is present. There is no tricuspid stenosis. There is a mild amount of tricuspid regurgitation Moderate to severe pulmonary hypertension.RVSP is 58 to 63 mm of Hg , with RA mean of 10 to 15. There is no pulmonic valvular stenosis. There is a trace amount of pulmonic regurgitation There is no pericardial effusion. The right atrium is normal. The left atrial size is normal. The interatrial septum is intact with no evidence for an atrial septal defect. There is no Doppler evidence for an interatrial shunt MMode/2D Measurements & Calculations RVDd: 4.0 cm LVIDd: 4.2 cm FS: 37.6 % Ao root diam: 2.7 cm IVSd: 0.82 cm LVIDs: 2.6 cm EDV(Teich): 78.4 ml Ao root area: 5.6 cm2 LVPWd: 0.95 cm ESV(Teich): 25.1 ml LA dimension: 3.4 cm EF(Teich): 68.0 % LVOT diam: 1.4 cm LVOT area: 1.6 cm2 Doppler Measurements & Calculations MV E max andreea: MV P1/2t max andreea: Ao V2 max: LV V1 max P.6 cm/sec 114.5 cm/sec 205.6 cm/sec 3.6 mmHg MV A max andreea: MV P1/2t: 67.9 msec Ao max PG: LV V1 max: 95.3 cm/sec MVA(P1/2t): 3.2 cm2 17.4 mmHg 91.6 cm/sec MV E/A: 1.1 MV dec slope: EMMETT(V,D): 0.69 cm2 493.7 cm/sec2 MV dec time: 0.18 sec PA V2 max: TR max andreea: MV P1/2t-pr_phl: 96.0 cm/sec 347.5 cm/sec 70.4 msec PA max P.0 mmHg TR max P.3 mmHg Left Ventricle The left ventricle is normal in size. There is normal left ventricular wall thickness. The left ventricular ejection fraction is within normal limits. LV EF is > than 60%. Doppler measurements suggest normal left ventricular diastolic function. The left ventricular wall motion is normal. There is no thrombus. Right Ventricle The right ventricle is not well visualized secondary to technical limitations. Probably mildly dilated RV with normal systolic function. Atria The right atrium is normal. The left atrial size is normal. The interatrial septum is intact with no evidence for an atrial septal defect. There is no Doppler evidence for an interatrial shunt. Mitral Valve There is no evidence of mitral valve prolapse. There is no vegetation seen on the mitral valve. There is no mitral valve stenosis. There is a mild amount of mitral regurgitation. Aortic Valve There is no aortic valvular vegetation. There is mild aortic stenosis. There is a peak gradient of 22 mm of Hg. No hemodynamically significant valvular aortic stenosis. There is no LVOT obstruction. No aortic regurgitation is present. Tricuspid Valve There is no tricuspid stenosis. There is a mild amount of tricuspid regurgitation. Moderate to severe pulmonary hypertension.RVSP is 58 to 63 mm of Hg , with RA mean of 10 to 15. Pulmonic Valve There is no pulmonic valvular stenosis. There is a trace amount of pulmonic regurgitation. Great Vessels The aortic root is not well visualized but is probably normal size. Effusions There is no pericardial effusion. : ARUNA ARELLANO Lakshmi
[2018-10-13] MEDS: ATORVASTATIN CALCIUM 10 MG TABLET PO SCH (21:42)
[2018-10-13] MEDS: MONTELUKAST SODIUM 10 MG TABLET PO SCH (21:42)
[2018-10-13] MEDS: METHYLPREDNISOLONE INJ 40 MG/1 ML SDV IV SCH (21:42)
[2018-10-13] MEDS: INSULIN DETEMIR 100 UNIT/ML 3 ML PEN SUBCUT SCH (21:43)
[2018-10-14] MEDS: HEPARIN SOD (PORCINE) 5,000 UNIT/ML 1 ML SYRINGE SUBCUT SCH ×2 (06:15→17:33)
[2018-10-14] MEDS: INSULIN LISPRO 100 UNIT/ML 3 ML VIAL SUBCUT SCH ×3 (08:28→17:33)
[2018-10-14] MEDS: ALBUTEROL SULFATE 0.083% NEB 2.5 MG/3 ML AMPUL NEB PRN (09:17)
[2018-10-14] MEDS: FLUTICASONE NASAL SPRAY 50 MCG/SPRY 120 SPRAY/16 GM NASL SCH (10:00)
[2018-10-14] MEDS: METHYLPREDNISOLONE INJ 40 MG/1 ML SDV IV SCH (10:01)
[2018-10-14] MEDS: METFORMIN HCL 500 MG TABLET PO SCH ×2 (10:01→17:34)
[2018-10-14] MEDS: FLUTICASONE/VILANTEROL 200-25 MCG/DOSE IH SCH (10:02)
--- NOTE | 2018-10-14 14:58 | PDOC TRANSFER SUMMARY ---
General - Admit/Disc Date/PCP Admission Date/Primary Care Provider: 10/10/18 14:30 MARBELLA SARKAR, [employer] Discharge Date: 10/14/18 - Discharge Diagnosis (1) Acute and chronic respiratory failure Is this a current diagnosis for this admission?: Yes Summary: Secondary to worsening pulmonary fibrosis. At this point the patient has been given IV steroids with some improvement. She still is requiring intermittent BiPAP. She should be allowed to use her BiPAP as needed during the day and she certainly should sleep with it at night. Continue her baseline oxygen of 5 L via nasal cannula. She will complete a long taper of p.o. prednisone (2) Pulmonary fibrosis Is this a current diagnosis for this admission?: Yes Summary: She has an appointment at [place] at the end of the month for consideration of starting the process for a lung transplant. (3) Moderate to severe pulmonary hypertension Is this a current diagnosis for this admission?: Yes Summary: Plan as above (4) HANNAH (obstructive sleep apnea) Is this a current diagnosis for this admission?: Yes Summary: Continue BiPAP as needed. Otherwise 5 L via nasal cannula during the daytime. (5) Diabetes mellitus type 2 in obese Is this a current diagnosis for this admission?: Yes Summary: Resume home regimen (6) GERD (gastroesophageal reflux disease) Is this a current diagnosis for this admission?: Yes Summary: Continue Protonix (7) HLD (hyperlipidemia) Is this a current diagnosis for this admission?: Yes Summary: Continue statin medication (8) HTN (hypertension) Is this a current diagnosis for this admission?: Yes Summary: Stable (9) History of lymphoma Is this a current diagnosis for this admission?: Yes Summary: No evidence of recurrence at this point (10) Morbid obesity Is this a current diagnosis for this admission?: Yes Summary: Certainly she would benefit from weight loss. Dietary discretion is advised (11) OAB (overactive bladder) Is this a current diagnosis for this admission?: Yes Summary: Continue home regimen (12) Hyperkalemia Is this a current diagnosis for this admission?: Yes Summary: This is only minimally elevated. She will need a chemistry panel in about a week. (13) Hyponatremia Is this a current diagnosis for this admission?: Yes Summary: Chronic and stable. (14) Full code status Is this a current diagnosis for this admission?: Yes - Additional Information Resuscitation Status: Full Code Discharge Activity: Activity As Tolerated, Balance Activity w/Rest, Slowly Increase Activity Prescriptions: Prednisone [Deltasone 20 mg Tablet] 20 mg PO ASDIR PRN #46 tablet PRN Reason: Home Medications: Albuterol Sulfate [Proair HFA Inhalation Aerosol 8.5 gm MDI] 2 puff IH BID 10/10/18 Cholestyramine/Aspartame [Prevalite Packet] 1 packet PO DAILY 10/10/18 Fluticasone/Salmeterol [Advair 500-50 Diskus 14 Dose/Diskus] 1 puff IH Q12 10/10/18 Insulin Detemir [Levemir] 40 unit SQ QHS 10/10/18 Liraglutide [Victoza 2-Ambrosio] 1.2 mg SQ QAM 10/10/18 Lisinopril/Hydrochlorothiazide [Lisinopril-Hctz 10-12.5 mg Tab] 1 each PO DAILY 10/10/18 Metformin HCl [Glucophage] 1,000 mg PO BID 10/10/18 Montelukast Sodium [Singulair 10 mg Tablet] 10 mg PO QHS 10/10/18 Pravastatin Sodium [Pravachol] 40 mg PO QHS 10/10/18 Umeclidinium [place] [Incruse Ellipta] 1 puff IH DAILY 10/10/18 Acetaminophen [Tylenol 325 mg Tablet] 650 mg PO Q4HP PRN tablet 10/14/18 Albuterol Sulfate [Ventolin 0.083% Neb 2.5 mg/3 mL Ampul] 2.5 mg NEB RTQ4HP PRN vial.neb 10/14/18 Benzonatate [Tessalon Perles 100 mg Capsule] 100 mg PO Q8HP PRN capsule 10/14/18 Fluticasone Propionate [Flonase Nasal [place] 50 Mcg/[place] 16 gm] 2 spray NASL Q12 spray.pump 10/14/18 Insulin Lispro [Humalog Insulin (Lispro) 100 unit/mL] 0 - 12 unit SUBCUT ACHS unit 10/14/18 Prednisone [Deltasone 20 mg Tablet] 20 mg PO ASDIR PRN #46 tablet 10/14/18 History of Present Illness Admission Date/PCP: 10/10/18 14:30 CHICA GARCIA History of Present Illness: JACOB TOLBERT is a 53 year old female who presented to the emergency room with increased shortness of breath. Hospital Course Hospital Course: The patient is an extremely pleasant but unfortunate 53-year-old female with a past medical history significant for pulmonary fibrosis. She is maintained on 5-6 she was in significant distress l of oxygen in the home setting. The patient presented to the emergency room with respiratory distress. With oxygen saturations at 68% at the time of admission on her usual 6 L. In the emergency room the patient's chest x-ray was suggestive of pulmonary edema and she was diuresed with IV Lasix and placed on BiPAP. The patient responded quite quickly to IV Solu-Medrol as well as the IV diuresis. Over the next 2 days her oxygen requirements decreased and she is just about back to baseline. She does require intermittent BiPAP support during the day and she should be allowed to use her BiPAP machine off and on as needed at the skilled facility that she is going to for subacute rehabilitation. She has an appointment at [place] at the end of the month and she is to keep that appointment. Otherwise she will follow-up with her artifacts conservator and primary care provider when she is rele ased from rehab. At this point maximum hospital benefit has been reached. The patient will be discharged today in stable condition. Physical Exam Vital Signs: Temp Pulse Resp BP Pulse Ox 97.5 F 70 17 143/74 H 97 10/14/18 11:35 10/14/18 11:35 10/14/18 12:34 10/14/18 11:35 10/14/18 12:34 Intake & Output 10/13/18 10/14/18 10/15/18 06:59 06:59 06:59 Intake Total 1427 1182 355 Output Total 3450 3400 1400 Balance -2022 -8 -5 Weight 104.3 kg 103.6 kg General appearance: PRESENT: no acute distress, morbidly obese, well-developed, well-nourished, other - Currently wearing her BiPAP. She is awake alert and oriented x4 Head exam: PRESENT: atraumatic, normocephalic Eye exam: PRESENT: conjunctiva pink, EOMI, PERRLA. ABSENT: scleral icterus Mouth exam: PRESENT: moist, tongue midline Neck exam: ABSENT: carotid bruit, JVD, lymphadenopathy, thyromegaly Respiratory exam: PRESENT: decreased breath sounds, other - Otherwise her lungs sound fairly clear Cardiovascular exam: PRESENT: RRR. ABSENT: diastolic murmur, rubs, systolic murmur Pulses: PRESENT: normal dorsalis pedis pul GI/Abdominal exam: PRESENT: normal bowel sounds, soft. ABSENT: distended, guarding, mass, organolmegaly, rebound, tenderness Rectal exam: PRESENT: deferred Extremities exam: PRESENT: full ROM. ABSENT: calf tenderness, clubbing, pedal edema Neurological exam: PRESENT: alert, awake, oriented to person, oriented to place, oriented to time, oriented to situation, CN II-XII grossly intact. ABSENT: motor sensory deficit Psychiatric exam: PRESENT: appropriate affect, normal mood. ABSENT: homicidal ideation, suicidal ideation Skin exam: PRESENT: dry, intact, warm. ABSENT: cyanosis, rash Results Laboratory Results: 10/10/18 11:47 10/13/18 16:50 10/13/18 16:50 Sodium 134.3 L Potassium 5.1 H Chloride 92 L Carbon Dioxide 36 H Anion Gap 6 BUN 27 H Creatinine 0.71 Est GFR ( Amer) > 60 Est GFR (Non-Af Amer) > 60 Glucose 243 H Calcium 9.8 10/10/18 10/10/18 10/11/18 11:47 11:47 07:23 Creatine Kinase 78 CK-MB (CK-2) 2.42 Troponin I < 0.012 NT-Pro-B Natriuret Pep 145 Impressions: Chest X-Ray 10/11/18 06:00 IMPRESSION: Chronic interstitial lung disease. No significant change. No i nfiltrate. Transfer Plan - Disposition Transfer Plan: The patient will be transferred today to subacute rehabilitation in stable condition. - Time Spent with Patient Time spent with patient: Greater than 30 Minutes Qualifiers - * PATIENT BEING DISCHARGED WITH ANY OF THE FOLLOWING DIAGNOSIS: No
[2018-10-14 20:48] VITALS: BP 133/57
== END 2018-10-14 21:46 | DRG 189 ==
LOC: ER 11:14 → EH 14:30 → 3S 19:55
PROVIDERS: ADMIT Internal Medicine; ATTEND Internal Medicine
PROC: 3E0234Z Introduction of Serum, Toxoid and Vaccine into Muscle, Percutaneous Approach (ICD-10-PCS; principal; 2018-10-14)
DX: J96.21 Acute and chronic respiratory failure with hypoxia (principal); Z68.41 Body mass index [BMI] 40.0-44.9, adult; E87.1 Hypo-osmolality and hyponatremia; J44.9 Chronic obstructive pulmonary disease, unspecified; E78.00 Pure hypercholesterolemia, unspecified; I10 Essential (primary) hypertension; K21.9 Gastro-esophageal reflux disease without esophagitis; J84.10 Pulmonary fibrosis, unspecified; E87.5 Hyperkalemia; I27.20 Pulmonary hypertension, unspecified; E11.8 Type 2 diabetes mellitus with unspecified complications; G47.33 Obstructive sleep apnea (adult) (pediatric); N32.81 Overactive bladder; E66.01 Morbid (severe) obesity due to excess calories; Z99.81 Dependence on supplemental oxygen; Z86.73 Personal history of transient ischemic attack (TIA), and cerebral infarction without residual deficits; Z87.891 Personal history of nicotine dependence; Z79.84 Long term (current) use of oral hypoglycemic drugs; Z79.51 Long term (current) use of inhaled steroids; Z79.899 Other long term (current) drug therapy; Z85.72 Personal history of non-Hodgkin lymphomas; Z23 Encounter for immunization
CPT/HCPCS: 36415; 71045; 80048; 80053; 82550; 82553; 82803; 82962; 83605; 83735; 83880; 84484; 85025; 87040; 87804; 90686; 93005; 93010; 93306; 94640; 94660; 99284; J1644; J1815; J1940; J2920; J2930; J3475; J3490; J7620

== ENCOUNTER 2018-10-15 09:57 | Emergency (ER) | payer MEDICARE, MEDICAID ==
--- NOTE | 2018-10-15 11:24 | ER Document Report ---
ED Respiratory Problem - General Chief Complaint: Shortness Of Breath Stated Complaint: DIFFICULTY BREATHING Time Seen by Provider: 10/15/18 10:06 Primary Care Provider: MARBELLA SARKAR FNP-C [Primary Care Provider] - Follow up as needed Mode of Arrival: Medic Information source: Patient Notes: Patient has a history of pulmonary fibrosis and sleep apnea and pulmonary hypertension. Patient is in the process of getting evaluated at [facility] to get set up for a lung transplant. Patient was sent to rehab to bridge until she can get into see the physicians at [facility]. Patient was sent here from the rehab facility this morning after they went in and attempted to do physical therapy and patient's oxygen saturation dropped to 71. The nurse then came in to evaluate patient and oxygen saturation was 80. Patient states that she chronically has low oxygen saturation levels and that it tends to drop especially whenever she becomes physically active. Patient states that they did not give her any time to come to sit up and take her time to do things today and she is not surprised that her oxygen saturations dropped. Patient does have as needed BiPAP that she is supposed to wear during the day for shortness of breath or decrease in oxygen saturation. Patient did not wear the BiPAP when this occurred this morning at the rehab facility. Spoke with rehab nurse Felisa who states that she was unfamiliar with patient and it is their policy to have them evaluated whenever they have abnormal vital signs such as hers. Patient states that she was not having any dyspnea symptoms at the time but that they got concerned with the read on her pulse oximeter. TRAVEL OUTSIDE OF THE [place] IN LAST 30 DAYS: No - HPI Patient complains to provider of: COPD, Cough, Other - Pulmonary hypertension, pulmonary fibrosis. No: Chest pain Onset: This morning Duration: Better Quality of pain: No pain Pain Level: Denies Context: Hx COPD, Other - Pulmonary fibrosis. denies: Recent surgery At home treatment: Bronchodilators Associated symptoms: Cough, Short of breath, Wheezing. denies: Fever Similar symptoms previously: Yes Recently seen / treated by doctor: Yes - Related Data Allergies/Adverse Reactions: Shellfish * [Shellfish] Allergy (Severe, Verified 10/10/18 11:17) COLITIS peanut Adverse Reaction (Verified 10/10/18 11:17) SEEDS Allergy (Intermediate, Uncoded 10/10/18 11:17) COLITIS LETTUCE Adverse Reaction (Severe, Uncoded 10/10/18 11:17) COLITIS Past Medical History - General Information source: Patient - Social History Smoking Status: Former Smoker Chew tobacco use (# tins/day): No Frequency of alcohol use: None Drug Abuse: None Lives with: Intermediate Family History: Reviewed & Not Pertinent, COPD Patient has suicidal ideation: No Patient has homicidal ideation: No - Past Medical History Cardiac Medical History: Reports: Hx Hypercholesterolemia, Hx Hypertension Denies: Hx Coronary Artery Disease, Hx Heart Attack Pulmonary Medical History: Reports: Hx Asthma, Hx Bronchitis, Hx COPD - Hospitalized 06/15 w/persistent pulmonary failure, Hx Pneumonia - ARDS, Hx Intubation - 2 in the past adamantly refuses additional intubations, Hx Respiratory Failure, Hx Sleep Apnea, Other - Pulmonary fibrosis Denies: Hx Tuberculosis Neurological Medical History: Reports: Hx Cerebrovascular Accident - "Mild" 02/19/11 Endocrine Medical History: Reports: Hx Diabetes Mellitus Type 1, Hx Diabetes Mellitus Type 2 Renal/ Medical History: Denies: Hx Peritoneal Dialysis GI Medical History: Reports: Hx Gastroesophageal Reflux Disease, Hx Hiatal Hernia Musculoskeletal Medical History: Reports Hx Arthritis - Gout Psychiatric Medical History: Denies: Hx Depression Past Surgical History: Reports: Hx Abdominal Surgery - ruptured bowel, colostomy, Hx Appendectomy, Hx Bowel Surgery, Hx Cholecystectomy, Hx Colostomy - ileostomy placed 05/15; subsequently closed., Hx Tubal Ligation. Denies: Hx Pacemaker - Immunizations Hx Diphtheria, Pertussis, Tetanus Vaccination: No Hx Pneumococcal Vaccination: 06/22/11 Review of Systems - Review of Systems Constitutional: No symptoms reported. denies: Fever, Recent illness EENT: No symptoms reported Cardiovascular: No symptoms reported. denies: Chest pain Respiratory: Cough, Short of breath, Wheezing Gastrointestinal: No symptoms reported. denies: Abdominal pain, Nausea, Vomiting Genitourinary: No symptoms reported Female Genitourinary: No symptoms reported Musculoskeletal: No symptoms reported Skin: No symptoms reported Hematologic/Lymphatic: No symptoms reported Neurological/Psychological: No symptoms reported. denies: Headaches Physical Exam - Vital signs Vitals: Resp BP Pulse Ox 15 136/72 H 88 L 10/15/18 10:04 10/15/18 10:04 10/15/18 10:04 - General General appearance: Alert In distress: Mild - HEENT Head: Normocephalic, Atraumatic Eyes: Normal Conjunctiva: Normal Nasal: Normal Mouth/Lips: Normal Pharynx: Normal Neck: Normal, Supple. No: Lymphadenopathy - Respiratory Respiratory status: Tachypnea Chest status: Nontender Breath sounds: Nonproductive cough, Wheezing Chest palpation: Normal - Cardiovascular Rhythm: Regular Heart sounds: S1 appreciated, S2 appreciated Murmur: No - Abdominal Inspection: Normal, Obese Distension: No distension Bowel sounds: Normal Tenderness: Nontender - Back Back: Normal, Nontender, CVA tenderness - Extremities General upper extremity: Normal inspection, Normal ROM General lower extremity: Normal inspection, Normal ROM - Neurological Neuro grossly intact: Yes Cognition: Normal Aleida Coma Scale Eye Opening: Spontaneous [place] Coma Scale Verbal: Oriented Aleida Coma Scale Motor: Obeys Commands Aleida Coma Scale Total: 15 - Psychological Associated symptoms: Normal affect, Normal mood - Skin Skin Temperature: Warm Skin Moisture: Dry Skin Color: Normal Course - Re-evaluation Re-evalutation: 10/15/18 10:[address] Elmore who recommends consultation with hospitalist at discharge patient but likely recommends return to the long term with recommendations to use patient's BiPAP as needed. Consulted with Heather MANCINI who discharge patient last night. Discussed patient's return to the ER today and physical exam findings. Discussed reported concerns per nursing staff as to why patient was brought back to the ER today for evaluation. Recommends using her BiPAP as needed as was advised on the discharge instructions. LIVE Adrian also recommends that staff discuss with patie nt her symptoms in addition to monitoring her pulse oximetry. States that patient chronically has a low pulse ox reading and has a history of chronic lower pulse ox readings. Patient should be brought back if patient becomes symptomatic with her hypoxia that is not improving after being placed back on her BiPAP. 10/15/18 11:22 Spoke with Felisa at [facility] and discussed staff concerns about why patient was returned here today and also discussed patient's underlying medical condition and the fact that patient has a chronic low pulse ox reading. Advised that patient should be placed on BiPAP for any physically exerting activities as well as any lengthy conversations and as needed for any low pulse ox reading or if patient becomes dyspneic. If patient continues to be dyspneic or become symptomatic despite being placed on her BiPAP that she should return for further evaluation. Felisa advised that patient should have BiPAP at night when she goes to bed and as needed during the daytime. 10/15/18 13:02 Patient continues to await transportation back to [facility] at this time. 10/15/18 18:33 Transport here for patient, patient in no respiratory distress at this time. Patient encouraged to use BiPAP as needed for any dyspnea symptoms - Vital Signs Vital signs: Temp Pulse Resp BP Pulse Ox 98 F 18 134/68 H 91 L 10/15/18 18:34 10/15/18 18:01 10/15/18 18:01 10/15/18 18:34 - EKG Interpretation by Me EKG shows normal: Sinus rhythm Rate: Normal When compared to previous EKG there are: No significant change Discharge - Discharge Clinical Impression: Pulmonary fibrosis Chronic respiratory failure Qualifiers: Respiratory failure complication: hypoxia Qualified Code(s): J96.11 - Chronic respiratory failure with hypoxia Condition: Stable Disposition: HOME, SELF-CARE Additional Instructions: Return immediately for any new or worsening symptoms Followup with your primary care provider as planned. Wear BiPAP at nighttime when sleeping and use during day as needed for any shortness of breath or drops in pulse oximetry. Referrals: MARBELLA SARKAR FNP-C [Primary Care Provider] - Follow up as needed
--- NOTE | 2018-10-15 13:07 | EKG REPORT ---
SEVERITY:- NORMAL ECG - SINUS RHYTHM : Confirmed by: Joselo Flores MD 15-Oct-2018 13:06:44
[2018-10-15 18:09] VITALS: BP 134/68
== END 2018-10-15 18:29 | disposition home or self-care (01) ==
LOC: ER 09:57
DX: J84.10 Pulmonary fibrosis, unspecified (principal); J96.11 Chronic respiratory failure with hypoxia; J44.9 Chronic obstructive pulmonary disease, unspecified; I27.20 Pulmonary hypertension, unspecified; R05 Cough; E11.9 Type 2 diabetes mellitus without complications; Z91.013 Allergy to seafood; Z91.018 Allergy to other foods
CPT/HCPCS: 93005; 93010; 99285

== ENCOUNTER → 2018-11-12 | Outpatient (CLI) | payer MEDICAID, MEDICARE ==
--- NOTE | 2018-11-12 12:48 | WOMENS IMAGING REPORT ---
EXAM DESCRIPTION: BILAT SCREENING MAMMO W/CAD COMPLETED DATE/TIME: 11/12/2018 10:47 am REASON FOR STUDY: ROUTINE BILATERAL SCREENING;Z12.31 Z12.31 ENCNTR SCREEN MAMMOGRAM FOR MALIGNANT N EOPLASM OF DANIEL COMPARISON: 11/07/2017 and 10/24/2016. TECHNIQUE: Standard craniocaudal and mediolateral oblique views of each breast recorded using digita l acquisition. LIMITATIONS: None. FINDINGS: Findings present which are benign by mammographic criteria. No suspicious masses, calcifi cations or architectural distortion. Pertinent benign findings: Stable small circumscribed nodule in the left breast. Read with the assistance of CAD. .[facility] - R2 Cenova Version 1.3 .[facility] - R2 Cenova Version 2.1 .[facility] - R2 Cenova Version 2.4 .[facility] - R2 Cenova Version 2.4 .[facility] - R2 Banquet Steward Version 9.2 Benign mammographic findings may include one or more of the following: Smooth masses, popcorn/rim/co arse calcifications, asymmetries, post-procedure changes, and lesions with long-standing stability. IMPRESSION: BENIGN MAMMOGRAPHIC FINDINGS. BIRADS 2 BREAST DENSITY: b. There are scattered areas of fibroglandular density. BIRAD: 2 BENIGN FINDING(S) RECOMMENDATION: ROUTINE SCREENING COMMENT: The patient has been notified of the results by letter per SA requirements. Additional no tification policies are in place for contacting patient with suspicious or incomplete findings. Quality ID #225: The [employer] recommends an annual screening mammogram for women aged 40 years or over. This facility utilizes a reminder system to ensure that all patients receive reminder letters, and/or direct phone calls for appointments. This includes reminders for routine scr eening mammograms, diagnostic mammograms, or other Breast Imaging Interventions when appropriate. Th is patient will be placed in the appropriate reminder system. The [employer] (ACR) has developed recommendations for screening MRI of the breast s in certain patient populations, to be used in conjunction with mammography. Breast MRI surveillanc e may be appropriate for women with more than 20% lifetime risk of developing breast cancer as deter mined by genetic testing, significant family history of the disease, or history of mantle radiation f or Hodgkins Disease. ACR Practice Guidelines 2008. TECHNICAL DOCUMENTATION: FINDING NUMBER: (1) ASSESSMENT: (1) JOB ID: [id number] [employer]- All Rights Reserved Reading location - IP/workstation name: [email or web address]
== END ==
LOC: WI 10:17
PROVIDERS: ATTEND Nurse Practitioner Family
DX: Z12.31 Encounter for screening mammogram for malignant neoplasm of breast (principal)
CPT/HCPCS: 77067

== ENCOUNTER → 2020-01-15 | Outpatient (CLI) | payer MEDICARE ==
--- NOTE | 2020-01-15 09:59 | RADIOLOGY REPORT (SQ) ---
EXAM DESCRIPTION: CT CHEST WITHOUT IMAGES COMPLETED DATE/TIME: 01/15/2020 8:58 am REASON FOR STUDY: PULMONARY FIBROSIS J84.10 PULMONARY FIBROSIS, UNSPECIFIED COMPARISON: 06/23/2018 and 05/01/2017. TECHNIQUE: CT scan performed of the chest without intravenous contrast. Images reviewed with lung, soft tissue and bone windows. Reconstructed coronal and sagittal MPR images reviewed. All images st ored on PACS. All CT scanners at this facility use dose modulation, iterative reconstruction, and/or weight based d osing when appropriate to reduce radiation dose to as low as reasonably achievable (ALARA). [facility]: Dose Right [facility]: CareDose [facility]: Dose Right [facility]: Teradose 4D [facility]: OZZ Electric RADIATION DOSE: CT Rad equipment meets quality standard of care and radiation dose reduction techniq ues were employed. CTDIvol: 18.8 mGy. DLP: 807 mGy-cm. mGy. LIMITATIONS: No technical limitations. FINDINGS: LUNGS AND PLEURA: Stable pulmonary fibrosis with diffuse interstitial thickening. No huey ycombing. Stable 7 mm nodule in the right lung associated with the minor fissure. No new nodules. No masses, infiltrates, or pneumothorax. No pleural effusions or pleural calcifications. HILAR AND MEDIASTINAL STRUCTURES: Stable mediastinal adenopathy. No obvious aneurysm. HEART AND VASCULAR STRUCTURES: No aneurysm. No pericardial effusion. UPPER ABDOMEN: No significant findings. Limited exam. THYROID AND OTHER SOFT TISSUES: No masses. No adenopathy. BONES: No significant finding. HARDWARE: None in the chest. OTHER: No other significant findings. IMPRESSION: 1. CHRONIC PULMONARY FIBROSIS. STABLE 7 MM NODULE IN THE RIGHT LUNG ALONG THE MINOR FISSURE. NO ALBER NGE. NO ACUTE FINDINGS. 2. STABLE MEDIASTINAL ADENOPATHY. NO PROGRESSION. TECHNICAL DOCUMENTATION: JOB ID: [id number] Quality ID # [id number]: Final reports with documentation of one or more dose reduction techniques (e.g., Au tomated exposure control, adjustment of the mA and/or kV according to patient size, use of iterative reconstruction technique) 2010 [employer]- All Rights Reserved Reading location - IP/workstation name: [email or web address]
== END ==
LOC: RAD 08:40
PROVIDERS: ATTEND Internal Medicine Pulmonary Disease
DX: J84.10 Pulmonary fibrosis, unspecified (principal); R91.1 Solitary pulmonary nodule; R59.0 Localized enlarged lymph nodes
CPT/HCPCS: 71250

== ENCOUNTER → 2020-01-22 | Outpatient (CLI) | payer MEDICARE, MEDICAID ==
--- NOTE | 2020-01-22 15:49 | RADIOLOGY REPORT (SQ) ---
EXAM DESCRIPTION: CHEST PA/LATERAL IMAGES COMPLETED DATE/TIME: 01/22/2020 3:37 pm REASON FOR STUDY: COUGH COMPARISON: AP view of the chest from 10/11/[address] of the chest without contrast from 01/15/2020. EXAM PARAMETERS: NUMBER OF VIEWS: Two views. TECHNIQUE: PA and lateral views of the chest were obtained. RADIATION DOSE: NA. LIMITATIONS: None. FINDINGS: LUNGS AND PLEURA: Diffuse basilar predominant interstitial opacities. The costophrenic briseno lci are blunted. There is no superimposed consolidation. MEDIASTINUM AND HILAR STRUCTURES: No mediastinal or hilar contour abnormality. HEART AND VASCULAR STRUCTURES: The cardiac silhouette and pulmonary vasculature are within normal lock its. BONES: No acute findings. HARDWARE: None in the chest. OTHER: No other finding. IMPRESSION: Chronic basilar predominant interstitial opacities without a superimposed consolidation. The blunting of the costophrenic sulci is nonspecific and could represent pleural thickening or ple ural fluid. TECHNICAL DOCUMENTATION: JOB ID: [id number] 2010 [employer]- All Rights Reserved Reading location - IP/workstation name: [email or web address]
== END ==
LOC: OD 15:09
PROVIDERS: ATTEND Internal Medicine Pulmonary Disease
DX: R05 Cough (principal)
CPT/HCPCS: 36415; 71046; 87205

== ENCOUNTER → 2020-06-24 | Outpatient (CLI) | payer MEDICARE, MEDICAID ==
--- NOTE | 2020-06-24 15:39 | WOMENS IMAGING REPORT ---
EXAM DESCRIPTION: 3D SCREENING MAMMO BILAT IMAGES COMPLETED DATE/TIME: 06/24/2020 2:02 pm REASON FOR STUDY: Z12.39 ENCNTR SCREEN MAMMOGRAM FOR MALIGNANT NEOPLASM OF BREAST Z12.31 ENCNTR SCR EEN MAMMOGRAM FOR MALIGNANT NEOPLASM OF DANIEL COMPARISON: 2017 and subsequent. EXAM PARAMETERS: Views: Standard craniocaudal and mediolateral oblique views of each breast recorded using digital acquisition and breast tomosynthesis. Read with the assistance of CAD. .[facility] - [employer] Loss Prevention Guard Version 9.2 LIMITATIONS: None. FINDINGS: No suspicious masses, suspicious calcifications or architectural distortion. No areas of c oncern. IMPRESSION: NEGATIVE MAMMOGRAM. BIRADS 1. BREAST DENSITY: a. The breasts are almost entirely fatty. BIRAD: ASSESSMENT: 1 NEGATIVE RECOMMENDATION: ROUTINE SCREENING COMMENT: The patient has been notified of the results by letter per MQSA requirements. Additional no tification policies are in place for contacting patient with suspicious or incomplete findings. Quality ID #225: The [employer] recommends an annual screening mammogram for women aged 40 years or over. This facility utilizes a reminder system to ensure that all patients receive reminder letters, and/or direct phone calls for appointments. This includes reminders for routine scr eening mammograms, diagnostic mammograms, or other Breast Imaging Interventions when appropriate. Th is patient will be placed in the appropriate reminder system. TECHNICAL DOCUMENTATION: FINDING NUMBER: (1) ASSESSMENT: (1) JOB ID: [id number] 2010 [employer]- All Rights Reserved Reading location - IP/workstation name: [email or web address]
== END ==
LOC: WI 13:18
PROVIDERS: ATTEND Nurse Practitioner Family
DX: Z12.31 Encounter for screening mammogram for malignant neoplasm of breast (principal)
CPT/HCPCS: 77063; 77067